=== PATIENT | female | born 1970 | race Caucasian/White ===

== ENCOUNTER 2017-11-17 10:05 | Day surgery (SDC) | payer OTHER ==
--- NOTE | 2017-11-17 07:17 | P.GSHP ---
History of Present Illness H&P Date: 11/17/17 CHIEF COMPLAINT: GERD HISTORY OF PRESENT ILLNESS: The patient is a 47-year-old female who presents reports gastroesophageal reflux disease. Upper endoscopy was offered for further evaluation and management. PAST MEDICAL HISTORY: Please see list. PAST SURGICAL HISTORY: Please see list. MEDICATIONS: Please see list. ALLERGIES: Please see list. SOCIAL HISTORY: No illicit drug use FAMILY HISTORY: No reports of Crohn disease or ulcerative colitis. REVIEW OF ORGAN SYSTEMS: CONSTITUTIONAL: No reports of fevers or chills. GI: Denies any blood in stools or constipation. PHYSICAL EXAM: VITAL SIGNS: Stable GENERAL: Well-developed and pleasant in no acute distress. HEENT: No scleral icterus. Extraocular movements grossly intact. Moist buccal mucosa. NECK: Supple without lymphadenopathy. CHEST: Unlabored respirations. Equal bilateral excursions. CARDIOVASCULAR: Regular rate and rhythm. Distal 2+ pulses. ABDOMEN: Soft, nondistended. MUSCULOSKELETAL: No clubbing, cyanosis, or edema. ASSESSMENT: 1. Gastroesophageal reflux disease PLAN: 1. Recommend proceeding with an upper endoscopy Past Medical History Past Medical History: Fibromyalgia, Hypertension Additional Past Medical History / Comment(s): seasonal allergies History of Any Multi-Drug Resistant Organisms: None Reported Past Surgical History: Tubal Ligation Past Psychological History: No Psychological Hx Reported Smoking Status: Current every day smoker Past Alcohol Use History: None Reported Past Drug Use History: None Reported Medications and Allergies Home Medications Medication Instructions Recorded Confirmed Type Cetirizine HCl [Zyrtec] 10 mg PO DAILY 07/25/15 08/13/15 History Cyclobenzaprine [Flexeril] 10 mg PO TID 07/25/15 08/13/15 History Hydrochlorothiazide 25 mg PO DAILY 07/25/15 08/13/15 History [Hydrochlorothiazide] Ibuprofen [Motrin] 800 mg PO Q8HR PRN 07/25/15 08/13/15 History Ondansetron HCl [Zofran] 4 mg PO Q6HR PRN #10 tab 07/25/15 08/13/15 Rx Pregabalin [Lyrica] 150 mg PO TID 07/25/15 08/13/15 History amLODIPine [Norvasc] 5 mg PO DAILY 07/25/15 08/13/15 History oxyCODONE HCL [oxyCODONE HCL] 10 mg PO Q6HR PRN 07/25/15 08/13/15 History Allergies Allergy/AdvReac Type Severity Reaction Status Date / Time shellfish derived [Shellfish] Allergy Anaphylaxis Verified 08/13/15 01:55
[2017-11-17] MEDS ORDERED: LIDOCAINE 1% 20 ML VIAL (10MG/ML) FOR IV START INTRADERMA PRN (11:25)
[2017-11-17] MEDS ORDERED: LACTATED RINGERS 1,000 ML IV SCH (11:25)
[2017-11-17 11:43] VITALS: TEMP 98.1
[2017-11-17] MEDS ORDERED: LACTATED RINGERS 1,000 ML IV ONE (11:44)
[2017-11-17] MEDS ORDERED: PROPOFOL 10 MG/ML 20 ML VIAL IV ONE (12:15)
--- NOTE | 2017-11-17 12:36 | P.PCN ---
Date of Procedure: 11/17/17 Description of Procedure: PREOPERATIVE DIAGNOSIS: Gastroesophageal reflux disease. Morbid obesity. POSTOPERATIVE DIAGNOSIS: Morbid obesity. Gastritis. Gastroesophageal reflux disease. OPERATION: Esophagogastroduodenoscopy with biopsies along antrum. SURGEON: Amanda Vazquez MD ANESTHESIA: MAC. INDICATIONS: The patient is a 47-year-old female who presents with a history of reflux disease. Benefits and risks of the procedure were described. Informed consent was obtained. DESCRIPTION: The patient was brought into the endoscopy suite and laid in the left lateral decubitus position. An Olympus gastroscope was passed along the posterior oropharynx down to the distal esophagus where the squamocolumnar junction was encountered at 40 cm from the incisors. The stomach was entered and no bile reflux was found. Additional findings are listed below. Biopsies with cold forceps were obtained of the antrum. The first through third portion of the duodenum was examined and unremarkable. Retroflexion of the scope confirmed Hill grade 2 lower esophageal valve. The squamocolumnar junction demostrated LA grade A erosive esophagitis. The stomach was desufflated. The patient tolerated the procedure well. FINDINGS: Squamocolumnar junction 40 cm from the incisors. Diaphragmatic hiatus at 40 cm. Hill grade 2 lower esophageal valve. LA grade A erosive esophagitis. No active duodenitis. Superficial acute gastritis of recent bleed along antrum RECOMMENDATIONS: Upper endoscopy as needed. Plan - Discharge Summary New Discharge Prescriptions: No Action amLODIPine [Norvasc] 5 mg PO DAILY Cetirizine HCl [Zyrtec] 10 mg PO DAILY Cyclobenzaprine [Flexeril] 10 mg PO TID oxyCODONE HCL [oxyCODONE HCL] 10 mg PO Q6HR PRN PRN Reason: Pain Pregabalin [Lyrica] 150 mg PO TID Ibuprofen [Motrin] 800 mg PO Q8HR PRN PRN Reason: pain Hydrochlorothiazide [Hydrochlorothiazide] 25 mg PO DAILY Ondansetron HCl [Zofran] 4 mg PO Q6HR PRN #10 tab PRN Reason: Nausea Discharge Medication List Cetirizine HCl [Zyrtec] 10 mg PO DAILY 07/25/15 [History] Cyclobenzaprine [Flexeril] 10 mg PO TID 07/25/15 [History] Hydrochlorothiazide [Hydrochlorothiazide] 25 mg PO DAILY 07/25/15 [History] Ibuprofen [Motrin] 800 mg PO Q8HR PRN 07/25/15 [History] Ondansetron HCl [Zofran] 4 mg PO Q6HR PRN #10 tab 07/25/15 [Rx] Pregabalin [Lyrica] 150 mg PO TID 07/25/15 [History] amLODIPine [Norvasc] 5 mg PO DAILY 07/25/15 [History] oxyCODONE HCL [oxyCODONE HCL] 10 mg PO Q6HR PRN 07/25/15 [History]
[2017-11-17 12:51] VITALS: RESP 16
[2017-11-17 12:59] VITALS: BP 136/87; PULSE 83
== END 2017-11-17 13:12 | disposition home or self-care (01) ==
LOC: ORWHC2ENDO 10:05
PROVIDERS: ATTEND Surgery Plastic and Reconstructive Surgery
DX: K29.00 Acute gastritis without bleeding (principal); K29.50 Unspecified chronic gastritis without bleeding; K21.9 Gastro-esophageal reflux disease without esophagitis; E66.01 Morbid (severe) obesity due to excess calories; K22.10 Ulcer of esophagus without bleeding; I10 Essential (primary) hypertension; M79.7 Fibromyalgia; F17.200 Nicotine dependence, unspecified, uncomplicated; Z91.013 Allergy to seafood; Z88.0 Allergy status to penicillin; Z79.899 Other long term (current) drug therapy; Z68.26 Body mass index [BMI] 26.0-26.9, adult
CPT/HCPCS: 81025; 88305; 43239; J2704

== ENCOUNTER 2018-02-27 23:44 | Observation (INO) | payer MEDICARE, OTHER ==
[2018-02-27] MEDS ORDERED: ASPIRIN 81 MG PO STA (23:56)
[2018-02-27] MEDS ORDERED: SODIUM CHLORIDE 0.9% 1,000 ML IV STA (23:56)
[2018-02-28] MEDS ORDERED: NITROGLYCERIN OINT 1 INCH/GM PACKET TOPICAL STA (00:02)
[2018-02-28 00:22] LABS: Basophils # (A) 0.1 k/uL (0-0.2); Basophils % (A) 1 %; Eosinophils # (A) 0.3 k/uL (0-0.7); Eosinophils % (A) 4 %; HCT 45.6 % (34.0-46.0); HGB 14.3 gm/dL (11.4-16.0); Lymphocytes # (A) 3.1 k/uL (1.0-4.8); Lymphocytes % (A) 34 %; MCH 28.4 pg (25.0-35.0); MCHC 31.5 g/dL (31.0-37.0); MCV 90.3 fL (80.0-100.0); Monocytes # (A) 0.5 k/uL (0-1.0); Monocytes % (A) 6 %; Neutrophils # (A) 4.9 k/uL (1.3-7.7); Neutrophils % (A) 54 %; Platelet Count 249 k/uL (150-450); RBC 5.05 m/uL (3.80-5.40); RDW 14.1 % (11.5-15.5); WBC 9.1 k/uL (3.8-10.6)
[2018-02-28 00:33] LABS: Albumin 4.3 g/dL (3.5-5.0); Calcium 9.4 mg/dL (8.4-10.2); Magnesium 1.8 mg/dL (1.6-2.3); Potassium 3.9 mmol/L (3.5-5.1); Total Bilirubin 0.4 mg/dL (0.2-1.3); Total Protein 7.3 g/dL (6.3-8.2)
[2018-02-28 00:42] LABS: Partial Thromboplastin Time 24.8 sec (22.0-30.0); Prothrombin Time 9.6 sec (9.0-12.0)
[2018-02-28 00:49] LABS: Creatine Kinase 78 U/L (30-135)
[2018-02-28 00:55] LABS: D-Dimer 0.8 mg/L FEU (<0.60)
--- NOTE | 2018-02-28 00:56 | XR ---
EXAMINATION TYPE: XR chest 2V DATE OF EXAM: 02/28/2018 COMPARISON: 07/25/2015 HISTORY: Chest pain TECHNIQUE: Frontal and lateral views of the chest are obtained. FINDINGS: Heart and mediastinum are normal. Lungs are clear. Diaphragm is normal. There are chest le ads. IMPRESSION: Normal chest. No change.
--- NOTE | 2018-02-28 00:56 | XR ---
EXAMINATION TYPE: XR ankle complete LT DATE OF EXAM: 02/28/2018 COMPARISON: NONE HISTORY: Ankle swelling TECHNIQUE: 3 views FINDINGS: I see no fracture nor dislocation. Ankle mortise is anatomic. IMPRESSION: Negative left ankle exam.
[2018-02-28 01:02] LABS: Creatine Kinase MB 1.4 ng/mL (0.0-2.4); Troponin I <0.012 ng/mL (0.000-0.034)
--- NOTE | 2018-02-28 01:47 | ED ---
General Adult HPI - General Chief complaint: Chest Pain Stated complaint: Chest pain, High BP Time Seen by Provider: 02/27/18 23:55 Source: patient, family Mode of arrival: ambulatory Limitations: no limitations - History of Present Illness Initial comments: Dyan is a 47-year-old female with past medical history of obesity and hypertension who presents to the emergency department today for evaluation of chest pain. Patient reports that for the past 2 days she's had mild chest pain but this evening she developed a sharp pain in her retrosternal radiating to her left shoulder left neck, patient reports that she checked her blood pressure home and noted that was very elevated. This made her very anxious prompted her to come to the hospital. Patient reports she has a history of hypertension, she reports she's been compliant with her home antihypertensives. She states that when her blood pressure gets elevated she occasionally has headaches, but she is not experiencing that today. She denies any previous cardiac history, but does report a positive family history as well as a history of DVTs and PEs in the family. She reports that the pain is been mild throughout the weekend but became suddenly severe this evening while at rest. She cannot identify any exacerbating or relieving factors to the pain. She's never experienced pain like this in the past. She denies any recent fevers chills nausea or vomiting. She reports that prior to this week and she was in her usual state of health. She does suffer from chronic pain secondary to fibromyalgia for which she is followed by pain management has a pain contract and takes by mouth pain medications. - Related Data Home Medications Medication Instructions Recorded Confirmed Cetirizine HCl [Zyrtec] 10 mg PO DAILY 07/25/15 02/27/18 Cyclobenzaprine [Flexeril] 10 mg PO TID 07/25/15 02/27/18 Hydrochlorothiazide 25 mg PO DAILY 07/25/15 02/27/18 Ibuprofen [Motrin] 800 mg PO Q8HR PRN 07/25/15 02/27/18 Pregabalin [Lyrica] 150 mg PO TID 07/25/15 02/27/18 amLODIPine [Norvasc] 5 mg PO DAILY 07/25/15 02/27/18 oxyCODONE HCL 10 mg PO Q6HR PRN 07/25/15 02/27/18 Previous Rx's Medication Instructions Recorded Ondansetron HCl [Zofran] 4 mg PO Q6HR PRN #10 tab 07/25/15 Omeprazole 20 mg PO DAILY #14 capsule. 11/17/17 Allergies Allergy/AdvReac Type Severity Reaction Status Date / Time shellfish derived [Shellfish] Allergy Anaphylaxis Verified 02/27/18 23:50 PCN Allergy Rash/Hives Uncoded 02/27/18 23:50 Review of Systems ROS Statement: Those systems with pertinent positive or pertinent negative responses have been documented in the HPI. ROS Other: All systems not noted in ROS Statement are negative. Past Medical History Past Medical History: Fibromyalgia, Hypertension Additional Past Medical History / Comment(s): seasonal allergies, pt states clotting disorder History of Any Multi-Drug Resistant Organisms: None Reported Past Surgical History: Tubal Ligation Past Psychological History: No Psychological Hx Reported Smoking Status: Current every day smoker Past Alcohol Use History: None Reported Past Drug Use History: None Reported General Exam - General Exam Comments Initial Comments: GENERAL: Morbidly obese female in moderate distress, is uncomfortable HENT: Normocephalic, Atraumatic. Neck is soft and supple. No significant lymphadenopathy is noted. Oropharynx is clear. Moist mucous membranes. Neck has full range of motion without eliciting any pain. EYES: The sclera were anicteric and conjunctiva were pink and moist. Extraocular movements were intact and pupils were equal round and reactive to light. Eyelids were unremarkable. PULMONARY: Unlabored respirations. Good breath sounds bilaterally. No audible rales rhonchi or wheezing was noted. CARDIOVASCULAR: There is a regular rate and rhythm without any murmurs gallops or rubs. Extremities are warm and well perfused, strong radial pulses bilaterally ABDOMEN: Obese, Soft and nontender with normal bowel sounds. SKIN: Skin is clear with no lesions or rashes and otherwise unremarkable. NEUROLOGIC: Patient is alert and oriented x3. Cranial nerves II through XII are grossly intact. Motor and sensory are also intact. Normal speech, volume and content. Symmetrical smile. MUSCULOSKELETAL: Normal extremities with adequate strength and full range of motion. No lower extremity swelling or edema. No calf tenderness. LYMPHATICS: No significant lymphadenopathy is noted PSYCHIATRIC: Normal psychiatric evaluation. Limitations: no limitations Limitations: no limitations Course Vital Signs 02/27/18 02/28/18 23:46 01:56 Temperature 99.3 F Pulse Rate 111 H 93 Respiratory 20 16 Rate Blood Pressure 158/94 133/81 O2 Sat by Pulse 96 97 Oximetry EKG Findings - EKG Comments: EKG Findings:: EKG obtained at 2359, rate is 101, rhythm is sinus, there is normal axis, normal intervals, RI 120, QRS 88, QTC 451, there is noted to be a Q -wave in lead [address] elevations or depressions no evidence of acute ischemia or infarction Medical Decision Making - Medical Decision Making The patient was seen and evaluated, history was obtained from the patient presented diaphoretic complaining of retrosternal chest pain with radiation to her neck and shoulder she was noted to be hypertensive As noted to be hypertensive, mildly tachycardic Risk factors include hypertension, obesity Labs and imaging were ordered EKG was reviewed, no acute ischemia was noted, nitro was ordered Labs significant only for an elevated d-dimer Chest x-ray with no acute findings CT pulmonary embolism study was ordered, patient tolerated this very well, there are no acute pulmonary embolism, no acute aortic pathology noted blood pressure improved with nitro paste a short reported improvement in her chest pressure with Nitropaste Reported was negative At this time considering the patient's presentation with retrosternal chest pain radiating the left shoulder and left neck, diaphoresis and history of hypertension and obesity do feel the patient warrants admission for evaluation by cardiology. This plan was discussed with the patient who is agreeable. Admission orders with a consult cardiology were placed - Lab Data Result diagrams: 02/28/18 00:07 02/28/18 00:07 Lab Results 02/28/18 02/28/18 02/28/18 Range/Units 00:07 00:07 00:07 WBC 9.1 (3.8-10.6) k/uL RBC 5.05 (3.80-5.40) m/uL Hgb 14.3 (11.4-16.0) gm/dL Hct 45.6 (34.0-46.0) % MCV 90.3 (80.0-100.0) fL MCH 28.4 (25.0-35.0) pg MCHC 31.5 (31.0-37.0) g/dL RDW 14.1 (11.5-15.5) % Plt Count 249 (150-450) k/uL Neutrophils % 54 % Lymphocytes % 34 % Monocytes % 6 % Eosinophils % 4 % Basophils % 1 % Neutrophils # 4.9 (1.3-7.7) k/uL Lymphocytes # 3.1 (1.0-4.8) k/uL Monocytes # 0.5 (0-1.0) k/uL Eosinophils # 0.3 (0-0.7) k/uL Basophils # 0.1 (0-0.2) k/uL PT (9.0-12.0) sec INR (<1.2) APTT (22.0-30.0) sec D-Dimer (<0.60) mg/L FEU Sodium 139 (137-145) mmol/L Potassium 3.9 (3.5-5.1) mmol/L Chloride 106 (98-107) mmol/L Carbon Dioxide 22 (22-30) mmol/L Anion Gap 11 mmol/L BUN 15 (7-17) mg/dL Creatinine 1.02 (0.52-1.04) mg/dL Est GFR (CKD-EPI)AfAm 77 (>60 ml/min/1.73 sqM) Est GFR (CKD-EPI)NonAf 67 (>60 ml/min/1.73 sqM) Glucose 105 H (74-99) mg/dL Calcium 9.4 (8.4-10.2) mg/dL Magnesium 1.8 (1.6-2.3) mg/dL Total Bilirubin 0.4 (0.2-1.3) mg/dL AST 45 H (14-36) U/L ALT 52 (9-52) U/L Alkaline Phosphatase 58 (38-126) U/L Total Creatine Kinase 78 (30-135) U/L CK-MB (CK-2) 1.4 (0.0-2.4) ng/mL CK-MB (CK-2) Rel Index 1.8 Troponin I <0.012 (0.000-0.034) ng/mL NT-Pro-B Natriuret Pep pg/mL Total Protein 7.3 (6.3-8.2) g/dL Albumin 4.3 (3.5-5.0) g/dL 02/28/18 02/28/18 Range/Units 00:07 00:07 WBC (3.8-10.6) k/uL RBC (3.80-5.40) m/uL Hgb (11.4-16.0) gm/dL Hct (34.0-46.0) % MCV (80.0-100.0) fL MCH (25.0-35.0) pg MCHC (31.0-37.0) g/dL RDW (11.5-15.5) % Plt Count (150-450) k/uL Neutrophils % % Lymphocytes % % Monocytes % % Eosinophils % % Basophils % % Neutrophils # (1.3-7.7) k/uL Lymphocytes # (1.0-4.8) k/uL Monocytes # (0-1.0) k/uL Eosinophils # (0-0.7) k/uL Basophils # (0-0.2) k/uL PT 9.6 (9.0-12.0) sec INR 1.0 (<1.2) APTT 24.8 (22.0-30.0) sec D-Dimer 0.80 H (<0.60) mg/L FEU Sodium (137-145) mmol/L Potassium (3.5-5.1) mmol/L Chloride (98-107) mmol/L Carbon Dioxide (22-30) mmol/L Anion Gap mmol/L BUN (7-17) mg/dL Creatinine (0.52-1.04) mg/dL Est GFR (CKD-EPI)AfAm (>60 ml/min/1.73 sqM) Est GFR (CKD-EPI)NonAf (>60 ml/min/1.73 sqM) Glucose (74-99) mg/dL Calcium (8.4-10.2) mg/dL Magnesium (1.6-2.3) mg/dL Total Bilirubin (0.2-1.3) mg/dL AST (14-36) U/L ALT (9-52) U/L Alkaline Phosphatase (38-126) U/L Total Creatine Kinase (30-135) U/L CK-MB (CK-2) (0.0-2.4) ng/mL CK-MB (CK-2) Rel Index Troponin I (0.000-0.034) ng/mL NT-Pro-B Natriuret Pep 42 pg/mL Total Protein (6.3-8.2) g/dL Albumin (3.5-5.0) g/dL Disposition Clinical Impression: Chest pain, Hypertensive urgency Disposition: ADMITTED IP TO THIS [facility] Condition: Stable Referrals: Camilo Foy DO [Primary Care Provider] - 1-2 days
--- NOTE | 2018-02-28 01:54 | CT ---
EXAMINATION TYPE: CT chest angio for PE DATE OF EXAM: 02/28/2018 COMPARISON: None HISTORY: R/O PE CT DLP: 789.70 mGycm Automated exposure control for dose reduction was used. CONTRAST: CT Chest for pulmonary embolism performed with with IV Contrast, patient injected with 70 mL of Isovu e 370. FINDINGS: There is minimal linear density in the lingula left upper lobe. There is no evidence of a pulmonary m ass. There is no pleural effusion. There is fatty infiltration of the liver. Heart size is normal. Th ere is no pericardial effusion. There is suboptimal contrast density in the pulmonary arteries. I see no filling defects. Thoracic ao rta shows no evidence of aneurysm or dissection. There is no evidence of a pulmonary mass. There is s purring in the thoracic spine. IMPRESSION: No evidence of pulmonary embolism. Fatty infiltration of the liver.
[2018-02-28] MEDS ORDERED: HEPARIN SODIUM,PORCINE 5,000 UNIT/ML 1 ML VIAL IV ONE (02:32)
[2018-02-28] MEDS ORDERED: HEPARIN SODIUM,PORCINE 5,000 UNIT/ML 1 ML VIAL IV PRN (02:32)
[2018-02-28] MEDS ORDERED: HEPARIN SOD,PORK IN 0.45% NACL 25,000 UNIT in 0.45% NACL 1 500ML.BAG IV SCH (02:45)
[2018-02-28 02:59] LABS: Basophils % (A) 0 %; Eosinophils # (A) 0.4 k/uL (0-0.7); Eosinophils % (A) 4 %; HCT 41.8 % (34.0-46.0); HGB 13.4 gm/dL (11.4-16.0); Lymphocytes # (A) 2.8 k/uL (1.0-4.8); Lymphocytes % (A) 35 %; MCH 28.6 pg (25.0-35.0); MCHC 32.1 g/dL (31.0-37.0); MCV 89.3 fL (80.0-100.0); Mean Platelet Volume 8.2; Monocytes # (A) 0.5 k/uL (0-1.0); Monocytes % (A) 6 %; Neutrophils # (A) 4.2 k/uL (1.3-7.7); Neutrophils % (A) 52 %; Platelet Count 219 k/uL (150-450); RBC 4.69 m/uL (3.80-5.40); RDW 13.8 % (11.5-15.5); WBC 8.1 k/uL (3.8-10.6)
[2018-02-28 03:03] LABS: Partial Thromboplastin Time 24.2 sec (22.0-30.0); Prothrombin Time 9.9 sec (9.0-12.0)
[2018-02-28 03:08] VITALS: RESP 18
[2018-02-28 03:15] VITALS: BMI 43.9
[2018-02-28] MEDS: PREGABALIN 75 MG CAP PO SCH ×2 (03:35→12:05)
[2018-02-28] MEDS ORDERED: NITROGLYCERIN OINT 1 INCH/GM PACKET TOPICAL SCH (06:00)
[2018-02-28 07:54] VITALS: TEMP 97.5
[2018-02-28] MEDS ORDERED: HEPARIN SODIUM,PORCINE 5,000 UNIT/ML 1 ML VIAL SQ SCH (08:00)
[2018-02-28 08:02] LABS: Creatine Kinase 58 U/L (30-135)
[2018-02-28 08:16] LABS: Creatine Kinase MB 1.1 ng/mL (0.0-2.4); Troponin I <0.012 ng/mL (0.000-0.034)
[2018-02-28] MEDS ORDERED: HYDROCHLOROTHIAZIDE 25 MG TAB PO SCH (09:00)
[2018-02-28] MEDS ORDERED: amLODIPine 5 MG TAB PO SCH (09:00)
[2018-02-28] MEDS ORDERED: PREGABALIN 75 MG CAP PO SCH (09:00)
[2018-02-28] MEDS ORDERED: DOBUTamine DRIP for NUC MED 500 MG in DEXTROSE/WATER 1 250ML.BAG IV ONE (10:07)
[2018-02-28] MEDS ORDERED: LOSARTAN 50 MG TAB PO SCH (10:15)
[2018-02-28 10:45] LABS: Cholesterol 170 mg/dL (<200); HDL Cholesterol 44 mg/dL (40-60); LDL Cholesterol,Calculated 80 mg/dL (0-99); Triglycerides 231 mg/dL (<150)
[2018-02-28] MEDS ORDERED: ATROPINE SULFATE 0.1 MG/ML 10ML SYRINGE ONE (11:23)
[2018-02-28 12:05] VITALS: BP 122/84; PULSE 109
--- NOTE | 2018-02-28 12:19 | P.CRDCN ---
History of Present Illness History of present illness: This is a pleasant 47-year-old female past medical history significant for hypertension, dyslipidemia and fibromyalgia. She is also a daily smoker. She denies history of coronary artery disease or diabetes mellitus. She has never seen a acid dumper for any reason. We've been asked to see her in consultation for symptoms of chest pain. She states her blood pressures have been running high for the last few days at home with diastolic up to 114. She states she has been working with her PCP to get her bp under better control lately and is checking pressures twice a day. Yesterday while sitting down she developed a stabbing pain in the mid-back that radiated through to her chest. The pain was intense and associated with shortness of breath and diaphoresis. She states she was drenched in sweat and had to change her clothes. The symptoms ultimately subsided on their own with no specific alleviating factors. EKG reveals sinus mechanism with no acute ST or T-wave abnormalities noted. Chest xray negative for an acute cardiopulmonary process. CTA chest negative for PE or aortic abnormalities. Laboratory data reviewed, hgb 13.4, plt 219, d-dimer 0.8, sodium 139, potassium 3.9, magnesium 1.8, creatinine 1.02, cardiac enzymes negative x3, NTproBNP 42, LDL 80, HDL 44, triglycerides 231, total cholesterol 170. Current cardiac medications include aspirin 325 mg daily, amlodipine 5 mg daily , losartan 100 mg daily and lasix 20 mg daily. She also takes lyrica, percocet, abilify, strattera, flexeril, cymbalta, fenofibrate, fluticasone, claritin, zantac, ellipta and chantix. Review of Systems At the time of my exam: CONSTITUTIONAL: Denies fever. Denies chills. EYES: Denies blurred vision. Denies vision changes. Denies eye pain. EARS, NOSE, MOUTH & THROAT: Denies headache. Denies sore throat. Denies ear pain. CARDIOVASCULAR: Denies chest pain. Denies shortness of breath. Denies orthopnea. Denies PND. Denies palpitations. RESPIRATORY: Denies cough. GASTROINTESTINAL: Denies abdominal pain. Denies diarrhea. Denies constipation. Denies nausea. Denies vomiting. MUSCULOSKELETAL: Denies myalgias. INTEGUMENTARY: Denies pruitis. Denies rash. NEUROLOGIC: Denies numbness. Denies tingling. Denies weakness. PSYCHIATRIC: Denies anxiety. Denies depression. ENDOCRINE: Denies fatigue. Denies weight change. Denies polydipsia. Denies polyurina. GENITOURINARY: Denies burning, hematuria or urgency with micturation. HEMATOLOGIC: Denies history of anemia. Denies bleeding. Past Medical History Past Medical History: Cancer, Fibromyalgia, Hyperlipidemia, Hypertension, Liver Disease Additional Past Medical History / Comment(s): seasonal allergies, pt states clotting disorder, cervical ca - HPV, slight elevated LFT, chronic pain, chronic fatigue, BLE edema History of Any Multi-Drug Resistant Organisms: None Reported Past Surgical History: Tubal Ligation Additional Past Surgical History / Comment(s): bunionectomy left Past Anesthesia/Blood Transfusion Reactions: No Reported Reaction Past Psychological History: Depression Smoking Status: Current every day smoker Past Alcohol Use History: None Reported Past Drug Use History: None Reported - Past Family History Son(s) Family Medical History: Deep Vein Thrombosis (DVT) Additional Family Medical History / Comment(s): elevated clotting disorder Daughter(s) Additional Family Medical History / Comment(s): elevated clotting disorder Mother Family Medical History: Hypertension Additional Family Medical History / Comment(s): at 64 - "arterial htn" Medications and Allergies Home Medications Medication Instructions Recorded Confirmed Type Cyclobenzaprine [Flexeril] 10 mg PO TID 07/25/15 02/28/18 History Pregabalin [Lyrica] 150 mg PO TID 07/25/15 02/28/18 History amLODIPine [Norvasc] 5 mg PO DAILY 07/25/15 02/28/18 History ARIPiprazole [Abilify] 5 mg PO DAILY 02/28/18 02/28/18 History Acetaminophen [Tylenol] 325 mg PO DAILY 02/28/18 02/28/18 History Aspirin 325 mg PO DAILY 02/28/18 02/28/18 History Atomoxetine HCl [Strattera] 80 mg PO QAM 02/28/18 02/28/18 History DULoxetine HCL [Cymbalta] 60 mg PO BID 02/28/18 02/28/18 History Fenofibrate 160 mg PO DAILY 02/28/18 02/28/18 History Fluticasone/Salmeterol 2 puff INHALATION RT-BID 02/28/18 02/28/18 History [Fluticasone-Salmeterol 232-14] Furosemide [Lasix] 20 mg PO DAILY 02/28/18 02/28/18 History Loratadine [Claritin] 10 mg PO DAILY 02/28/18 02/28/18 History Losartan Potassium [Cozaar] 100 mg PO DAILY 02/28/18 02/28/18 History Ranitidine HCl [Zantac] 150 mg PO BID 02/28/18 02/28/18 History Umeclidinium [place] [Incruse 1 puff INHALATION RT-DAILY 02/28/18 02/28/18 History Ellipta] Varenicline Tartrate [Chantix 1 tab PO BID 02/28/18 02/28/18 History Continuing Pack] oxyCODONE HCL/ACETAMINOPHEN 1 tab PO Q6HR PRN 02/28/18 02/28/18 History [Percocet 10-325 mg] Allergies Allergy/AdvReac Type Severity Reaction Status Date / Time shellfish derived [Shellfish] Allergy Anaphylaxis Verified 02/28/18 08:54 latex AdvReac Rash/Hives Verified 02/28/18 08:54 PCN Allergy Rash/Hives Uncoded 02/27/18 23:50 Physical Exam Vitals: Vital Signs Temp Pulse Pulse Resp BP BP Pulse Ox 02/28/18 07:25 97.5 F L 89 18 124/74 95 02/28/18 03:57 18 02/28/18 03:07 98.1 F 92 18 137/77 96 02/28/18 03:00 98.1 F 92 16 137/77 96 02/28/18 01:56 93 16 133/81 97 02/27/18 23:46 99.3 F 111 H 20 158/94 96 Intake and Output 02/27/18 02/28/18 02/28/18 22:59 06:59 14:59 Other: Voiding Method Toilet # Voids 2 Weight 135.5 kg Blood pressure 122/84 heart rate 109 afebrile maintaining oxygen saturation on room air GENERAL: This is a 47-year-old occasion female in no apparent distress at the time of my examination. Morbidly obese. HEENT: Head is atraumatic, normocephalic. Pupils are equal, round. Sclerae anicteric. Conjunctivae are clear. Mucous membranes of the mouth are moist. Neck is supple. There is no jugular venous distention. No carotid bruit is heard. LUNGS: Course rhonchi. No rales or wheezes. No chest wall tenderness is noted on palpation or with deep breathing. HEART: Regular rate and rhythm without murmurs, rubs or gallops. S1 and S2 heard. ABDOMEN: Soft, non-tender. Bowel sounds are heard. No organomegaly noted. EXTREMITIES: No evidence of peripheral edema and no calf tenderness noted. VASCULAR: Radial and dorsalis pedis pulses palpated, no evidence of clubbing. NEUROLOGIC: Patient is awake, alert and oriented x3. Results 02/28/18 02:40 02/28/18 00:07 Cardiac Enzymes 02/28/18 02/28/18 02/28/18 Range/Units 00:07 00:07 07:00 AST 45 H (14-36) U/L CK-MB (CK-2) 1.4 1.1 (0.0-2.4) ng/mL Troponin I <0.012 <0.012 (0.000-0.034) ng/mL Coagulation 02/28/18 02/28/18 Range/Units 00:07 02:40 PT 9.6 9.9 (9.0-12.0) sec APTT 24.8 24.2 (22.0-30.0) sec CBC 02/28/18 02/28/18 Range/Units 00:07 02:40 WBC 9.1 8.1 (3.8-10.6) k/uL RBC 5.05 4.69 (3.80-5.40) m/uL Hgb 14.3 13.4 (11.4-16.0) gm/dL Hct 45.6 41.8 (34.0-46.0) % Plt Count 249 219 (150-450) k/uL Comprehensive Metabolic Panel 02/28/18 Range/Units 00:07 Sodium 139 (137-145) mmol/L Potassium 3.9 (3.5-5.1) mmol/L Chloride 106 (98-107) mmol/L Carbon Dioxide 22 (22-30) mmol/L BUN 15 (7-17) mg/dL Creatinine 1.02 (0.52-1.04) mg/dL Glucose 105 H (74-99) mg/dL Calcium 9.4 (8.4-10.2) mg/dL AST 45 H (14-36) U/L ALT 52 (9-52) U/L Alkaline Phosphatase 58 (38-126) U/L Total Protein 7.3 (6.3-8.2) g/dL Albumin 4.3 (3.5-5.0) g/dL Current Medications Generic Name Dose Route Start Last Admin Trade Name Freq PRN Reason Stop Dose Admin Amlodipine Besylate 5 mg 02/28/18 09:00 Norvasc PO DAILY [facility] Aspirin 325 mg 03/01/18 09:00 Aspirin PO DAILY [facility] Heparin Sodium (Porcine) 0 unit 02/28/18 02:32 Heparin IV PER PROTOCOL PRN Low PTT Protocol Hydrochlorothiazide 25 mg 02/28/18 09:00 Hydrodiuril PO DAILY [facility] Heparin Sodium/Sodium Chloride 500 mls @ 20 mls/hr 02/28/18 02:45 02/28/18 03 :37 25,000 unit/ Sodium Chloride IV 7.4 units/kg/hr .Q24H [facility] 20 mls/hr Administration Protocol 7.4 UNITS/KG/HR Nitroglycerin 1 inch 02/28/18 06:00 02/28/18 06:09 Nitro-Bid Oint TOPICAL Not Given Q6HR [facility] Oxycodone HCl 10 mg 02/28/18 02:13 02/28/18 03:35 Oxyir PO 10 mg Q6HR PRN Administration Pain Pregabalin 150 mg 02/28/18 03:18 02/28/18 03:35 Lyrica PO 150 mg TID [facility] Administration Intake and Output 02/27/18 02/28/18 02/28/18 22:59 06:59 14:59 Other: Voiding Method Toilet # Voids 2 Weight 135.5 kg 02/28/18 02:40 02/28/18 00:07 Assessment and Plan Assessment: ASSESSMENT Chest pain, atypical. An acute coronary event has been ruled out with no EKG evidence of ischemia and negative cardiac enzymes Hypertension Dyslipidemia Fibromyalgia Chronic nicotine dependence Morbid Obesity PLAN An acute coronary event has been ruled out. Obtain 2D echocardiogram and doppler study to assess cardiac structure and function. Perform dobutamine stress echocardiogram to assess for stress induced ischemic changes. If stress test is normal she is stable from a cardiac perspective. Thank you kindly for this consultation. Nurse Practitioner note has been reviewed, I agree with a documented findings and plan of care. Patient was seen and examined.
[2018-02-28] MEDS ORDERED: CYCLOBENZAPRINE 10 MG TAB PO SCH (13:00)
--- NOTE | 2018-02-28 13:26 | P.HPIM ---
History of Present Illness 47-year-old female came in with compensative neck pain radiating the left side of the chest constant pain nonpleuritic not associated with food. Patient had a minimally d-dimer elevation because of which patient underwent CTA of the chest which did not show any pneumonic process of coronary embolism. Patient denied any associated shortness of breath lightheadedness patient pain is moderate. Patient does have degenerative neck disease and back disease. Patient was admitted to rule out a concurrent syndromes troponins are negative EKG no significant abnormality cardiology evaluated the patient patient is undergoing stress test and if that's negative patient will be discharged and patient pain is musculoskeletal coming from the degenerative neck disease patient does have history of fibromyalgia as well. Review of Systems REVIEW OF SYSTEMS: CONSTITUTIONAL: No fever, no malaise, no fatigue. HEENT: No recent visual problems or hearing problems. Denied any sore throat. CARDIOVASCULAR: No orthopnea, PND, no palpitations, no syncope. PULMONARY: No shortness of breath, no cough, no hemoptysis. GASTROINTESTINAL: No diarrhea, no nausea, no vomiting, no abdominal pain. Normoactive bowel sounds. NEUROLOGICAL: No headaches, no weakness, no numbness. HEMATOLOGICAL: Denies any bleeding or petechiae. GENITOURINARY: Denies any burning micturition, frequency, or urgency. MUSCULOSKELETAL/RHEUMATOLOGICAL: Denies any joint pain, swelling, or any muscle pain. ENDOCRINE: Denies any polyuria or polydipsia. The rest of the 14-point review of systems is negative. Past Medical History Past Medical History: Cancer, Fibromyalgia, Hyperlipidemia, Hypertension, Liver Disease Additional Past Medical History / Comment(s): seasonal allergies, pt states clotting disorder, cervical ca - HPV, slight elevated LFT, chronic pain, chronic fatigue, BLE edema History of Any Multi-Drug Resistant Organisms: None Reported Past Surgical History: Tubal Ligation Additional Past Surgical History / Comment(s): bunionectomy left Past Anesthesia/Blood Transfusion Reactions: No Reported Reaction Past Psychological History: Depression Smoking Status: Current every day smoker Past Alcohol Use History: None Reported Past Drug Use History: None Reported - Past Family History Son(s) Family Medical History: Deep Vein Thrombosis (DVT) Additional Family Medical History / Comment(s): elevated clotting disorder Daughter(s) Additional Family Medical History / Comment(s): elevated clotting disorder Mother Family Medical History: Hypertension Additional Family Medical History / Comment(s): at 64 - "arterial htn" Medications and Allergies Home Medications Medication Instructions Recorded Confirmed Type Cyclobenzaprine [Flexeril] 10 mg PO TID 07/25/15 02/28/18 History Pregabalin [Lyrica] 150 mg PO TID 07/25/15 02/28/18 History amLODIPine [Norvasc] 5 mg PO DAILY 07/25/15 02/28/18 History ARIPiprazole [Abilify] 5 mg PO DAILY 02/28/18 02/28/18 History Acetaminophen [Tylenol] 325 mg PO DAILY 02/28/18 02/28/18 History Aspirin 325 mg PO DAILY 02/28/18 02/28/18 History Atomoxetine HCl [Strattera] 80 mg PO QAM 02/28/18 02/28/18 History DULoxetine HCL [Cymbalta] 60 mg PO BID 02/28/18 02/28/18 History Fenofibrate 160 mg PO DAILY 02/28/18 02/28/18 History Fluticasone/Salmeterol 2 puff INHALATION RT-BID 02/28/18 02/28/18 History [Fluticasone-Salmeterol 232-14] Furosemide [Lasix] 20 mg PO DAILY 02/28/18 02/28/18 History Loratadine [Claritin] 10 mg PO DAILY 02/28/18 02/28/18 History Losartan Potassium [Cozaar] 100 mg PO DAILY 02/28/18 02/28/18 History Ranitidine HCl [Zantac] 150 mg PO BID 02/28/18 02/28/18 History Umeclidinium [place] [Incruse 1 puff INHALATION RT-DAILY 02/28/18 02/28/18 History Ellipta] Varenicline Tartrate [Chantix 1 tab PO BID 02/28/18 02/28/18 History Continuing Pack] oxyCODONE HCL/ACETAMINOPHEN 1 tab PO Q6HR PRN 02/28/18 02/28/18 History [Percocet 10-325 mg] Allergies Allergy/AdvReac Type Severity Reaction Status Date / Time shellfish derived [Shellfish] Allergy Anaphylaxis Verified 02/28/18 08:54 latex AdvReac Rash/Hives Verified 02/28/18 08:54 PCN Allergy Rash/Hives Uncoded 02/27/18 23:50 Physical Exam Vitals: Vital Signs Temp Pulse Pulse Resp BP BP Pulse Ox 02/28/18 12:00 97.5 F L 109 H 18 122/84 94 L 02/28/18 08:00 89 18 02/28/18 07:25 97.5 F L 89 18 124/74 95 02/28/18 03:57 18 02/28/18 03:07 98.1 F 92 18 137/77 96 02/28/18 03:00 98.1 F 92 16 137/77 96 02/28/18 01:56 93 16 133/81 97 02/27/18 23:46 99.3 F 111 H 20 158/94 96 Intake and Output 02/27/18 02/28/18 02/28/18 22:59 06:59 14:59 Intake Total 222 Balance 222 Intake: Oral 222 Other: Voiding Method Toilet Toilet # Voids 2 Weight 135.5 kg 135.171 kg PHYSICAL EXAMINATION: GENERAL: The patient is alert and oriented x3, not in any acute distress. Obese HEENT: Pupils are round and equally reacting to light. EOMI. No scleral icterus. No conjunctival pallor. Normocephalic, atraumatic. No pharyngeal erythema. No thyromegaly. CARDIOVASCULAR: S1 and S2 present. No murmurs, rubs, or gallops. PULMONARY: Chest is clear to auscultation, no wheezing or crackles. ABDOMEN: Soft, nontender, nondistended, normoactive bowel sounds. No palpable organomegaly. MUSCULOSKELETAL: No joint swelling or deformity. EXTREMITIES: No cyanosis, clubbing, or pedal edema. NEUROLOGICAL: Gross neurological examination did not reveal any focal deficits. SKIN: No rashes. Results CBC & Chem 7: 02/28/18 02:40 02/28/18 00:07 Labs: Abnormal Lab Results - Last 24 Hours (Table) 02/28/18 02/28/18 02/28/18 Range/Units 00:07 00:07 07:00 D-Dimer 0.80 H (<0.60) mg/L FEU Glucose 105 H (74-99) mg/dL AST 45 H (14-36) U/L Triglycerides 231 H (<150) mg/dL Thrombosis Risk Factor Assmnt - Choose All That Apply Each Factor Represents 1 point: Age 41-60 years, Obesity (BMI >25) Each Risk Factor Represents 3 Points: Family history of DVT/PE Thrombosis Risk Factor Assessment Total Risk Factor Score: 5 Thrombosis Risk Factor Assessment Level: High Risk Assessment and Plan Plan: Chest pain: Musculoskeletal underwent stress test if that's negative patient will be discharged -Morbid obesity: Patient appears to have sleep apnea will benefit from outpatient sleep study. Dietary counseling was provided patient is scheduled to get gastric bypass surgery -Fibromyalgia -Hypertension -Hyperlipidemia -Nicotine use: Counseling was provided Extrasystoles negative patient will be discharged today to follow up with the PCP and patient does have degenerative neck disease will benefit from outpatient physical therapy.
--- NOTE | 2018-02-28 13:26 | P.DS ---
Providers Date of admission: 02/28/18 02:13 Attending physician: Grant Tse MD Consults: 02/28/18 02:10 Consult Physician Urgent Consulting Provider: [facility] Consult Reason/Comments: chest pain, HTN Do you want consulting provider notified?: Yes, Notify in am Primary care physician: [facility] Course: As mentioned in HPI Patient Condition at Discharge: Stable Plan - Discharge Summary New Discharge Prescriptions: No Action amLODIPine [Norvasc] 5 mg PO DAILY Cyclobenzaprine [Flexeril] 10 mg PO TID Pregabalin [Lyrica] 150 mg PO TID oxyCODONE HCL/ACETAMINOPHEN [Percocet 10-325 mg] 1 tab PO Q6HR PRN PRN Reason: Pain Fenofibrate 160 mg PO DAILY ARIPiprazole [Abilify] 5 mg PO DAILY Acetaminophen [Tylenol] 325 mg PO DAILY Aspirin 325 mg PO DAILY Atomoxetine HCl [Strattera] 80 mg PO QAM DULoxetine HCL [Cymbalta] 60 mg PO BID Fluticasone/Salmeterol [Fluticasone-Salmeterol 232-14] 2 puff INHALATION RT- BID Furosemide [Lasix] 20 mg PO DAILY Loratadine [Claritin] 10 mg PO DAILY Losartan Potassium [Cozaar] 100 mg PO DAILY Ranitidine HCl [Zantac] 150 mg PO BID Umeclidinium [place] [Incruse Ellipta] 1 puff INHALATION RT-DAILY Varenicline Tartrate [Chantix Continuing Pack] 1 tab PO BID Discharge Medication List Cyclobenzaprine [Flexeril] 10 mg PO TID 07/25/15 [History] Pregabalin [Lyrica] 150 mg PO TID 07/25/15 [History] amLODIPine [Norvasc] 5 mg PO DAILY 07/25/15 [History] ARIPiprazole [Abilify] 5 mg PO DAILY 02/28/18 [History] Acetaminophen [Tylenol] 325 mg PO DAILY 02/28/18 [History] Aspirin 325 mg PO DAILY 02/28/18 [History] Atomoxetine HCl [Strattera] 80 mg PO QAM 02/28/18 [History] DULoxetine HCL [Cymbalta] 60 mg PO BID 02/28/18 [History] Fenofibrate 160 mg PO DAILY 02/28/18 [History] Fluticasone/Salmeterol [Fluticasone-Salmeterol 232-14] 2 puff INHALATION RT-BID 02/28/18 [History] Furosemide [Lasix] 20 mg PO DAILY 02/28/18 [History] Loratadine [Claritin] 10 mg PO DAILY 02/28/18 [History] Losartan Potassium [Cozaar] 100 mg PO DAILY 02/28/18 [History] Ranitidine HCl [Zantac] 150 mg PO BID 02/28/18 [History] Umeclidinium [place] [Incruse Ellipta] 1 puff INHALATION RT-DAILY 02/28/18 [ History] Varenicline Tartrate [Chantix Continuing Pack] 1 tab PO BID 02/28/18 [History] oxyCODONE HCL/ACETAMINOPHEN [Percocet 10-325 mg] 1 tab PO Q6HR PRN 02/28/18 [ History] Follow up Appointment(s)/Referral(s): Camilo Foy DO [Primary Care Provider] - 3 Days Discharge Disposition: HOME SELF-CARE
--- NOTE | 2018-02-28 14:24 | ECHOS ---
STRESS ECHOCARDIOGRAM INDICATIONS: Chest pain. BASELINE HEART RATE: 84 BASELINE BLOOD PRESSURE: 119/65 MAXIMUM HEART RATE: 139 MAXIMUM BLOOD PRESSURE: 130/62 85% MPHR: 148 100% MPHR: 174 MAXIMUM STAGE REACHED: 5 TOTAL EXERCISE TIME: 14:00 CLINICAL INFORMATION: Patient was given dobutamine infusion according to the standard protocol. Peak heart rate of 139 was achieved. Maximum blood pressure of 130/62 mmHg was noted. Resting EKG shows normal sinus rhythm with normal [place] interval and QRS duration and normal ST-T waves. No ST-segment depression suggestive of ischemia is noted. The baseline echocardiographic images reveals normal left ventricular chamber size with normal left ventricular systolic function. At the peak dose of dobutamine infusion, normal increase in the wall thickness and contractility is noted final impression this dobutamine stress echocardiographic study is negative for stress-induced ischemia. EKG portion of the stress is not suggestive of ischemia. Patient did not complain of any chest pain during the test. thank you. CLIVE / TU: [id number] /
[2018-03-01] MEDS ORDERED: ASPIRIN 81 MG PO SCH (09:00)
[2018-03-01] MEDS ORDERED: ASPIRIN 325 MG TAB PO SCH (09:00)
== END 2018-02-28 15:17 | disposition home or self-care (01) ==
LOC: EC 23:44 → 3OBS 02-28 02:13
PROVIDERS: ADMIT Internal Medicine; ATTEND Internal Medicine
DX: R07.89 Other chest pain (principal); R07.2 Precordial pain; R06.02 Shortness of breath; R00.0 Tachycardia, unspecified; R61 Generalized hyperhidrosis; I16.0 Hypertensive urgency; M54.2 Cervicalgia; R79.89 Other specified abnormal findings of blood chemistry; M79.7 Fibromyalgia; J30.2 Other seasonal allergic rhinitis; D68.9 Coagulation defect, unspecified; G89.29 Other chronic pain; E78.5 Hyperlipidemia, unspecified; I10 Essential (primary) hypertension; R53.82 Chronic fatigue, unspecified; R60.0 Localized edema; F32.9 Major depressive disorder, single episode, unspecified; F17.200 Nicotine dependence, unspecified, uncomplicated; Z83.2 Family history of diseases of the blood and blood-forming organs and certain disorders involving the immune mechanism; Z85.41 Personal history of malignant neoplasm of cervix uteri; Z82.49 Family history of ischemic heart disease and other diseases of the circulatory system; Z79.899 Other long term (current) drug therapy; Z79.82 Long term (current) use of aspirin; Z79.51 Long term (current) use of inhaled steroids; Z91.040 Latex allergy status; Z88.0 Allergy status to penicillin; Z91.013 Allergy to seafood; Z68.41 Body mass index [BMI] 40.0-44.9, adult; E66.01 Morbid (severe) obesity due to excess calories
CPT/HCPCS: 96361 ×2; 99285 ×2; 93005 ×2; 96365; 96366; 96376; 36415; 85379; 83880; 80061; 80053; 82550; 82553; 83735; 84484; 85025; 85610; 85730; 73610; 71046; 71275; G0378; C8929; C8930; J1250; J1644 ×2; J0461; Q9950; Q9967; 93306; 93351

== ENCOUNTER → 2018-08-29 | Outpatient (CLI) | payer MEDICARE, OTHER ==
[2018-08-29 16:29] VITALS: BP 139/93; PULSE 112; RESP 16; TEMP 97.9; BMI 43.2
--- NOTE | 2018-08-29 16:35 | P.HPBAR ---
Bariatric H&P - History & Physicial H&P Date: 08/29/18 History & Physicial: Visit/CC: Initial Visit Patient initial contact: Initial weight: 131.088 kg Initial weight in pounds: 289.00 Height: 5 ft 8.5 in Initial BMI: 43.2 Last weight: Current weight: 131.088 kg Current weight in pounds: 289.00 Current BMI: 43.2 [place] body weight (based on NIH guidelines): 64.637 kg Excess body weight loss: 0.0% The patient is a 48 year-old F who presents for Bariatric Assessment. Patient presents today for presurgical sleeve gastrectomy consultation. She's had issues with GERD. She is also morbidly obese with a BMI of 43. He seems have a good understanding of sleeve gastrectomy. Went over the risks and benefits of procedure including conversion to the open procedure and injury to the stomach liver or spleen. We also discussed the risk of gastric staple line disruption, bleeding or scarring. Past Medical History Past Medical History: Cancer, Fibromyalgia, Hyperlipidemia, Hypertension, Liver Disease Additional Past Medical History / Comment(s): seasonal allergies, pt states clotting disorder, cervical ca - HPV, slight elevated LFT, chronic pain, chronic fatigue, BLE edema History of Any Multi-Drug Resistant Organisms: None Reported Past Surgical History: Tubal Ligation Additional Past Surgical History / Comment(s): bunionectomy left Past Anesthesia/Blood Transfusion Reactions: No Reported Reaction Smoking Status: Current every day smoker - Past Family History Son(s) Family Medical History: Deep Vein Thrombosis (DVT) Additional Family Medical History / Comment(s): elevated clotting disorder Daughter(s) Additional Family Medical History / Comment(s): elevated clotting disorder Mother Family Medical History: Hypertension Additional Family Medical History / Comment(s): at 64 - "arterial htn" Surgical - Exam Vital Signs Temp Pulse Resp BP 97.9 F 112 H 16 139/93 08/29/18 16:27 08/29/18 16:27 08/29/18 16:27 08/29/18 16:27 - General well developed, well nourished, no distress - Eyes PERRL - ENT normal pinna - Neck no masses - Respiratory normal expansion - Cardiovascular Rhythm: regular - Abdomen Abdomen: soft, non tender Bariatric Assessment & Plan Plan: Morbid obesity, BMI 43. Patient will be scheduled for sleeve gastrectomy when she meets insurance authorization requirements. He has already undergone EGD several months ago. Bariatric Checklist Checklist: Plan: Checklist: EGD: 1. Hiatal hernia: 2. H. Pylori: HgbA1c: Vitamin D: Smoking: Current every day smoker Primary care physician referral: Dr. Foy Psychiatry clearance: Cardiology clearance: Sleep study: Diet journal: VTE risk score: VTE risk level: Rehab needs at discharge:
[2018-08-29 17:41] LABS: HCT 48.5 % (34.0-46.0); HGB 14.8 gm/dL (11.4-16.0); Hypochromasia Slight; MCH 28.2 pg (25.0-35.0); MCHC 30.6 g/dL (31.0-37.0); MCV 91.9 fL (80.0-100.0); Mean Platelet Volume 7.6; Platelet Count 248 k/uL (150-450); RBC 5.27 m/uL (3.80-5.40); RDW 14.6 % (11.5-15.5); WBC 9.6 k/uL (3.8-10.6)
[2018-08-30 00:55] LABS: Hemoglobin A1C 5.5 % (4.0-6.0)
[2018-08-30 01:42] LABS: Albumin 4.7 g/dL (3.80-4.90); Albumin/Globulin Ratio 1.88 (1.60-3.17); Anion Gap 7.1 mmol/L (4.00-12.00); Calcium 9.6 mg/dL (8.7-10.3); Carbon Dioxide 25.9 mmol/L (21.6-31.8); Globulin 2.5 g/dL (1.6-3.3); Potassium 4.7 mmol/L (3.5-5.5); Total Bilirubin 0.2 mg/dL (0.3-1.2); Total Protein 7.2 g/dL (6.2-8.2)
[2018-08-30 02:41] LABS: Vitamin D 25 Hydroxy 10.5 ng/mL (30.0-100.0)
== END ==
LOC: BARWHC3 15:39
PROVIDERS: ATTEND Surgery
DX: E66.01 Morbid (severe) obesity due to excess calories (principal); E55.9 Vitamin D deficiency, unspecified; F17.200 Nicotine dependence, unspecified, uncomplicated; Z68.41 Body mass index [BMI] 40.0-44.9, adult
CPT/HCPCS: 80053; 82607; 85027; 82306; 83036; 93005; 36415; G0463; 99201; 99211

== ENCOUNTER → 2018-10-10 | Outpatient (CLI) | payer MEDICARE, OTHER ==
[2018-10-11 08:47] VITALS: BP 123/89; PULSE 94; TEMP 98.1; BMI 43.0
--- NOTE | 2018-10-11 09:49 | P.HPBAR ---
Bariatric H&P - History & Physicial H&P Date: 10/10/18 History & Physicial: Visit/CC: presurgical visit Patient initial contact: Initial weight: 131.088 kg Initial weight in pounds: 289.00 Height: 5 ft 8.5 in Initial BMI: 43.2 Last weight: Current weight: 130.181 kg Current weight in pounds: 287.00 Current BMI: 43.0 [place] body weight (based on NIH guidelines): 64.637 kg Excess body weight loss: 1.3% The patient is a 48 year-old F who presents for Bariatric Assessment. Patient presents today for presurgical consultation. She is requesting sleeve gastrectomy. Her current BMI is 43. Past Medical History Past Medical History: Cancer, Fibromyalgia, Hyperlipidemia, Hypertension, Liver Disease Additional Past Medical History / Comment(s): seasonal allergies, pt states clotting disorder, cervical ca - HPV, slight elevated LFT, chronic pain, chronic fatigue, BLE edema History of Any Multi-Drug Resistant Organisms: None Reported Past Surgical History: Tubal Ligation Additional Past Surgical History / Comment(s): bunionectomy left Past Anesthesia/Blood Transfusion Reactions: No Reported Reaction Past Psychological History: Depression Smoking Status: Current every day smoker Past Alcohol Use History: None Reported Past Drug Use History: None Reported - Past Family History Son(s) Family Medical History: Deep Vein Thrombosis (DVT) Additional Family Medical History / Comment(s): elevated clotting disorder Daughter(s) Additional Family Medical History / Comment(s): elevated clotting disorder Mother Family Medical History: Hypertension Additional Family Medical History / Comment(s): at 64 - "arterial htn" Surgical - Exam Vital Signs Temp Pulse BP 98.1 F 94 123/89 10/10/18 15:10 10/10/18 15:10 10/10/18 15:10 - General well developed, well nourished, no distress - Eyes PERRL - ENT normal pinna - Neck no masses - Abdomen Abdomen: soft, non tender Bariatric Assessment & Plan Plan: Morbid obesity with BMI 43. Patient has multiple comorbidities related to morbid obesity. We went over the risks and benefits of sleeve gastrectomy. We discussed the possibilities of yesterday staple line disruption, bleeding or scarring. Patient will be scheduled for sleeve gastrectomy once her au thorization is complete. Bariatric Checklist Checklist: Plan: Checklist: EGD: 1. Hiatal hernia: 2. H. Pylori: HgbA1c: Vitamin D: Smoking: Current every day smoker Primary care physician referral: Dr. Foy Psychiatry clearance: Cardiology clearance: Sleep study: Diet journal: VTE risk score: VTE risk level: Rehab needs at discharge:
== END | disposition home or self-care (01) ==
LOC: BARWHC3 14:29
PROVIDERS: ATTEND Surgery
DX: E66.01 Morbid (severe) obesity due to excess calories (principal); F17.200 Nicotine dependence, unspecified, uncomplicated; I10 Essential (primary) hypertension; J30.2 Other seasonal allergic rhinitis; Z68.41 Body mass index [BMI] 40.0-44.9, adult; Z85.41 Personal history of malignant neoplasm of cervix uteri
CPT/HCPCS: 99211

== ENCOUNTER → 2018-10-13 | Outpatient (CLI) | payer MEDICARE, OTHER ==
--- NOTE | 2018-10-14 00:19 | CONS ---
CONSULTATION DATE OF SERVICE: 10/13/2018 48-year-old lady who has been evaluated in the sleep center for possible obstructive sleep apnea-hypopnea syndrome. HISTORY OF PRESENT ILLNESS SLEEP WAKE EVALUATION: SLEEP SCHEDULE: Her usual sleep schedule from 12 midnight until about 6:0 in the morning. FALLING ASLEEP: She does have problem with falling asleep, although no TV in bedroom. DURING SLEEP: She uses sleeps on the back position with loud snoring and she wakes up from sleep multiple times with up to 3 episodes of nocturia. Has episodes of gasping for air, sleep talking, sweating, grinding teeth, witnessed episodes of stopped breathing during the sleep. Stop breathing during the sleep was at the hospital. DURING THE DAY/SLEEP-WAKE EVALUATION: In the morning, patient wakes up tired, has difficulties to pay attention, falling asleep during the day, worries about sleep, has episodes of irritability, depression and anxiety. Ramsay Sleepiness Scale significantly increased to 17. PAST MEDICAL HISTORY: Positive for hypertension, fibromyalgia, hyperlipidemia, allergy, depression, osteoarthritis, vocal cord polyps. PAST SURGICAL HISTORY: Tubal ligation, cholecystectomy. MEDICATIONS: Lyrica, Percocet, Flexeril, Tylenol, Fenofibrate, amlodipine, metoprolol, Cymbalta, Abilify, Breo, Flonase, Lasix, losartan. SOCIAL HISTORY: Positive for smoking about 1 pack a day for 30 years. Presently patient switched to electronic cigarettes. Alcohol consumption none. FAMILY HISTORY: Hypertension, hyperlipidemia, sleep apnea, cancer, narcolepsy, acid reflux, COPD. REVIEW OF SYSTEMS: Multiple awakenings from sleep, significant excessive daytime sleepiness. PHYSICAL EXAM: GENERAL: lady without distress. VITAL SIGNS: BP 98/62, HR 95, RR 18, height 5 feet 8-1/2 inches, weight 282.2 pounds, body mass index 42.2, temperature 97.7. HEENT: Oropharynx showed extremely low position of soft palate. Mallampati 4 with a wide neck 16 inches in circumference. Neck Supple, no JVD. Thyroid is not palpable. LUNGS Clear to percussion and to auscultation. Good air exchange. No wheezing or rhonchi. HEART S1, S2 regular. No murmurs, gallops, or rubs. ABDOMEN: Obese. Soft and nontender. Bowel sounds are present. No organomegaly appreciated. EXTREMITIES No clubbing or cyanosis. GENERAL NEUROLOGIST Awake, alert, and oriented X3. Cranial nerves 2 to 7 intact. There is no fasciculation or atrophy. noted. No focal deficits observed. IMPRESSION: 1. Snoring, witnessed episodes of stopped breathing, witnessed episodes of stopped breathing during the sleep wound extremely low position of soft palate, Mallampati 4, and before that also presents with symptoms of significant excessive daytime sleepiness by Ramsay Sleepiness Scale. Obstructive sleep apnea-hypopnea syndrome. Oximetry 94%. 2. Obesity, BMI 42.2. 3. Hypertension. 4. History of fibromyalgia. 5. History of polyarthritis. 6. Hyperlipidemia. 7. Allergy. 8. History of depression. 9. Status post cholecystectomy. 10.Status post tubal ligation. 11.History of polyps on vocal cords. 12.Status post smoking for about 30 pack years. PLAN: 1. Polysomnography for evaluation of patient's breathing during sleep. 2. CPAP/BiPAP titration if sleep study confirms obstructive sleep apnea-hypopnea syndrome. 3. Preferable position during sleep on the side. 4. No driving if patient feels any sleepiness. 5. I will see patient for follow up visit to explain results of testing and following plan. Thank you very much for referring this patient for consultation, Sincerely, Dereck James MD, PhD, FAASM Diplomat of [place] [employer] [place] [employer] [facility] [place] MMODL / IJN: [id number] /
== END ==
LOC: SLEEP 14:52
PROVIDERS: ATTEND Internal Medicine
DX: G47.33 Obstructive sleep apnea (adult) (pediatric) (principal); E66.9 Obesity, unspecified; I10 Essential (primary) hypertension; M79.7 Fibromyalgia; M13.0 Polyarthritis, unspecified; E78.5 Hyperlipidemia, unspecified; F32.9 Major depressive disorder, single episode, unspecified; Z88.9 Allergy status to unspecified drugs, medicaments and biological substances; Z90.49 Acquired absence of other specified parts of digestive tract; Z98.51 Tubal ligation status; Z87.19 Personal history of other diseases of the digestive system; Z87.891 Personal history of nicotine dependence; Z68.41 Body mass index [BMI] 40.0-44.9, adult; Z79.899 Other long term (current) drug therapy; Z79.891 Long term (current) use of opiate analgesic
CPT/HCPCS: 99211

== ENCOUNTER → 2018-10-13 | Outpatient (CLI) | payer MEDICARE, OTHER ==
[2018-10-13 17:18] LABS: Basophils % (A) 0 %; Eosinophils # (A) 0.5 k/uL (0-0.7); Eosinophils % (A) 5 %; HCT 46.1 % (34.0-46.0); Lymphocytes % (A) 31 %; MCH 29.2 pg (25.0-35.0); MCHC 32.6 g/dL (31.0-37.0); MCV 89.5 fL (80.0-100.0); Mean Platelet Volume 8.1; Monocytes # (A) 0.5 k/uL (0-1.0); Monocytes % (A) 5 %; Neutrophils # (A) 5.5 k/uL (1.3-7.7); Neutrophils % (A) 56 %; Platelet Count 223 k/uL (150-450); RBC 5.15 m/uL (3.80-5.40); WBC 9.7 k/uL (3.8-10.6)
[2018-10-13 17:35] LABS: Albumin 5.2 g/dL (3.5-5.0); Calcium 10.3 mg/dL (8.4-10.2); Potassium 3.9 mmol/L (3.5-5.1); Total Bilirubin 0.6 mg/dL (0.2-1.3); Total Protein 8.4 g/dL (6.3-8.2)
[2018-10-14 01:05] LABS: Hemoglobin A1C 5.6 % (4.0-6.0)
== END | disposition home or self-care (01) ==
LOC: LABPAT 16:29
PROVIDERS: ATTEND Surgery
DX: Z01.818 Encounter for other preprocedural examination (principal); Z01.812 Encounter for preprocedural laboratory examination; D50.8 Other iron deficiency anemias
CPT/HCPCS: 80053; 83036; 83540; 85025; 93005

== ENCOUNTER 2018-10-24 08:00 | Inpatient (IN) | payer MEDICARE, OTHER ==
[~2018-10-24 08:00] MED LIST: DEXAMETHASONE SOD PHOSPHATE 10 MG/ML 1 ML VIAL IV ONE; ENOXAPARIN 40 MG/0.4 ML SYRINGE SQ ONE; LIDOCAINE 1% 20 ML VIAL (10MG/ML) FOR IV START INTRADERMA PRN; ONDANSETRON 4 MG/2 ML VIAL IVP ONE; SCOPOLAMINE 1.5MG/72HR PATCH TRANSDERM ONE; ceFAZolin IN SWFI 2 GM/20 ML SYRINGE IVP ONE
--- NOTE | 2018-10-24 11:18 | P.GSHP ---
History of Present Illness H&P Date: 10/24/18 Chief Complaint: Morbid obesity, BMI 41 This is a 48-year-old female who presents today for laparoscopic sleeve gastrectomy. Patient's had lifetime problems obesity. Her BMI is 41. She has severe comorbidities related to morbid obesity. Patient aware the risks of surgery including injury to the stomach, liver spleen. She is also aware of the right risk of gastric staple line disruption bleeding or perforation. Past Medical History Past Medical History: Cancer, Fibromyalgia, Hyperlipidemia, Hypertension, Liver Disease, Sleep Apnea/CPAP/BIPAP Additional Past Medical History / Comment(s): RECENTLY DIAGNOSED WITH SLEEP APNEA, CPAP BEIND DELIVERED TODAY (10/21/18). Seasonal allergies. Pt states clotting disorder. Cervical ca - HPV. Chronic pain. Chronic fatigue,. BILATERAL LOWER EXTREMITY EDEMA. History of Any Multi-Drug Resistant Organisms: None Reported Past Surgical History: Tubal Ligation Additional Past Surgical History / Comment(s): bunionectomy left Past Anesthesia/Blood Transfusion Reactions: No Reported Reaction Past Psychological History: Depression Smoking Status: Current every day smoker Past Alcohol Use History: None Reported Additional Past Alcohol Use History / Comment(s): HAS SMOKED FOR OVER 35 YRS, ATTEMPTING TO QUIT SMOKING, DOWN TO 1 CIG PER DAY AND USING E-PEN. Past Drug Use History: None Reported - Past Family History Son(s) Family Medical History: Deep Vein Thrombosis (DVT) Additional Family Medical History / Comment(s): elevated clotting disorder Daughter(s) Additional Family Medical History / Comment(s): elevated clotting disorder Mother Family Medical History: Hypertension Additional Family Medical History / Comment(s): at 64 - "arterial htn" Medications and Allergies Home Medications Medication Instructions Recorded Confirmed Type Cyclobenzaprine [Flexeril] 10 mg PO TID 07/25/15 10/21/18 History Pregabalin [Lyrica] 150 mg PO TID 07/25/15 10/21/18 History amLODIPine [Norvasc] 5 mg PO QAM 07/25/15 10/21/18 History ARIPiprazole [Abilify] 5 mg PO HS 02/28/18 10/21/18 History Atomoxetine HCl [Strattera] 80 mg PO QAM 02/28/18 10/21/18 History Furosemide [Lasix] 20 mg PO QAM 02/28/18 10/21/18 History Loratadine [Claritin] 10 mg PO DAILY 02/28/18 10/21/18 History Losartan Potassium [Cozaar] 100 mg PO QAM 02/28/18 10/21/18 History Ranitidine HCl [Zantac] 150 mg PO BID 02/28/18 10/21/18 History Umeclidinium [place] [Incruse 1 puff INHALATION DAILY 02/28/18 10/21/18 History Ellipta] oxyCODONE HCL/ACETAMINOPHEN 1 tab PO Q6HR PRN 02/28/18 10/21/18 History [Percocet 10-325 mg] Acyclovir [Zovirax] 800 mg PO DIRECTED PRN 08/30/18 10/21/18 History Fluticasone/Vilanterol [Breo 1 puff INHALATION DIRECTED 08/30/18 10/21/18 History Ellipta 100-25 Mcg Inhaler] Ergocalciferol (Vitamin D2) 50,000 unit PO FR 09/06/18 10/21/18 History [Drisdol] Acetaminophen [Tylenol] 325 mg PO Q6H PRN 10/21/18 10/21/18 History Aspirin 325 mg PO QAM 10/21/18 10/21/18 History DULoxetine HCL [Cymbalta] 3 tab PO BID 10/21/18 10/21/18 History Diclofenac Sodium [Voltaren Gel] 1 applic TOPICAL DAILY PRN 10/21/18 10/21/18 History Fluconazole [Diflucan] 150 mg PO QAM 10/21/18 10/21/18 History Metoprolol Tartrate 0.5 tab PO BID 10/21/18 10/21/18 History Allergies Allergy/AdvReac Type Severity Reaction Status Date / Time shellfish derived [Shellfish] Allergy Anaphylaxis Verified 10/21/18 13:26 latex AdvReac Rash/Hives Verified 10/21/18 13:26 PCN Allergy Rash/Hives Uncoded 10/21/18 13:26 Surgical - Exam Vital signs are stable BMI 41 - General well developed, well nourished, no distress - Eyes PERRL - ENT normal pinna - Neck no masses - Respiratory normal expansion - Cardiovascular Rhythm: regular - Abdomen Abdomen: soft, non tender Assessment and Plan Assessment: Morbid obesity, BMI 41. We'll perform laparoscopic sleeve gastrectomy.
[2018-10-24] MEDS: LACTATED RINGERS 1,000 ML IV SCH (11:36)
[2018-10-24] MEDS ORDERED: ePHEDrine SULFATE/0.9% NACL/PF 50 MG/5 ML SYRINGE IV ONE (11:42)
[2018-10-24] MEDS ORDERED: fentaNYL (PF) 50 MCG/ML 2 ML AMP ONE (11:42)
[2018-10-24] MEDS ORDERED: LIDOCAINE 1% INJ 10MG/ML (20 ML MDV) ONE (11:42)
[2018-10-24] MEDS ORDERED: MIDAZOLAM 2 MG/2 ML VIAL ONE (11:42)
[2018-10-24] MEDS ORDERED: ROCURONIUM BROMIDE 10 MG/ML 10 ML VIAL IV ONE (11:42)
[2018-10-24] MEDS ORDERED: ONDANSETRON 4 MG/2 ML VIAL ONE (11:42)
[2018-10-24] MEDS ORDERED: PHENYLEPHRINE-0.9% NACL SYG 1 MG/10 ML SYRINGE ONE (11:42)
[2018-10-24] MEDS ORDERED: NEOSTIGMINE 1 MG/ML 10 ML VIAL ONE (11:42)
[2018-10-24] MEDS ORDERED: GLYCOPYRROLATE 0.2 MG/ML 2 ML VIAL ONE (11:42)
[2018-10-24] MEDS ORDERED: PROPOFOL 10 MG/ML 20 ML VIAL IV ONE (11:42)
[2018-10-24] MEDS ORDERED: SUCCINYLCHOLINE CHLORIDE VIAL 200 MG/10 ML VIAL IV ONE (11:42)
[2018-10-24] MEDS ORDERED: KETOROLAC 30 MG/ML 1 ML VIAL ONE (11:42)
[2018-10-24] MEDS ORDERED: BUPIVACAIN-EPI 0.5%-1:200,000 30 ML VIAL SQ ONE (12:24)
[2018-10-24] MEDS ORDERED: LACTATED RINGERS 1,000 ML IV ONE (12:32)
[2018-10-24] MEDS ORDERED: diphenhydrAMINE 50 MG/ML 1 ML VIAL IVP PRN (12:59)
[2018-10-24] MEDS ORDERED: HYOSCYAMINE ORAL DROPS 1.875 MG/15 ML BOTTLE PO PRN (12:59)
[2018-10-24] MEDS ORDERED: NALOXONE 0.4 MG/ML 1 ML VIAL IV PRN (12:59)
--- NOTE | 2018-10-24 12:59 | P.OP ---
Date of Procedure: 10/24/18 Preoperative Diagnosis: Morbid obesity, BMI 41 Postoperative Diagnosis: Morbid obesity Procedure(s) Performed: Laparoscopic sleeve gastrectomy Anesthesia: TALITA Surgeon: Prasad Lindsey Estimated Blood Loss (ml): 5 Pathology: other (Stomach) Condition: stable Disposition: PACU Description of Procedure: The patient was placed on the operating room table in the supine position. She received general anesthesia and then was placed in dorsal lithotomy position. Her abdomen was prepped and draped in sterile fashion. The skin incision sites were anesthetized 1% local Xylocaine. And then the skin was incised with an 11 blade in the left lateral position. Using a blade less trocar under direct visualization the peritoneal cavity was entered. The abdomen was insufflated and then a 5 mm laparoscope was placed into the peritoneal cavity. A 5 mm trocar was placed in the right epigastric, and right lateral position. A 15 mm trocar was placed in the supra-umbilical position and another 5 mm trocar was placed in the left lateral position. The left lateral lobe of the liver was retracted. The stomach was visualized. The greater curvature of the stomach was then dissected using the Harmonic scissors. The dissection occurred approximately 5 cm from the pylorus to the level of the left hue. There was no hiatal hernia seen. At this point a 40-[place] bougie dilator was placed the oropharynx and passed into the esophagus and into the stomach by the MELTER ASSISTANT. The sleeve gastrectomy was performed by using the powered echelon stapler with a seam guard buttress material. Sequential firings of the stapler were performed. The gastric remnant was then brought out through the 15 mm trocar site. The dilator was withdrawn. And a orogastric tube was replaced into the stomach. The stomach was insufflated with 200 mL of methylene blue normal saline. There was no evidence of extravasation. The abdomen was irrigated there is no bleeding seen. The Mando-Mohan device was used to close the 15 mm trocar with 0 Vicryl. Skin was closed with interrupted 3-0 Monocryl sutures once the trochars withdrawn. Dermabond dressing was applied. Patient was sent to recovery in stable condition.
[2018-10-24] MEDS ORDERED: METOCLOPRAMIDE 5 MG/ML 2 ML VIAL IVP ONE (13:20)
[2018-10-24] MEDS ORDERED: diphenhydrAMINE 50 MG/ML 1 ML VIAL IVP ONE (13:30)
[2018-10-24] MEDS: HYDROmorphone 0.5 MG/0.5 ML SYRINGE IVP PRN ×8 (13:39→23:02)
[2018-10-24] MEDS: 0.9% NACL WITH KCL 20 MEQ/L 1,000 ML IV SCH ×2 (14:58→23:02)
[2018-10-24] MEDS: SIMETHICONE 40 MG/0.6 ML DROPS 2,000 MG/30 ML BOTTLE PO PRN ×2 (15:15→22:45)
[2018-10-24 15:35] VITALS: BMI 40.9
[2018-10-24] MEDS: ALBUTEROL NEBULIZED 2.5 MG/3 ML INHALATION SCH ×2 (15:50→20:38)
[2018-10-24] MEDS: KETOROLAC 30 MG/ML 1 ML VIAL IVP SCH ×2 (18:00→23:01)
[2018-10-24] MEDS: CLINDAMYCIN 900 MG in DEXTROSE 5% IN WATER 50 ML IVPB SCH ×2 (18:00)
--- NOTE | 2018-10-24 23:26 | CONS ---
CONSULTATION DATE OF SERVICE: 10/24/2018 REASON FOR CONSULTATION: Advice regarding hypertension, hyperlipidemia, multiple medical issues requested by Dr. Lindsey. HISTORY OF PRESENT ILLNESS: This 48 -year-old woman with a past history of fibromyalgia, hypertension, hyperlipidemia, history of obstructive sleep apnea, being followed by Dr. Dyan Foy in the outpatient setting underwent laparoscopic sleeve gastrectomy Dr. Lindsey for morbid obesity. The patient is complaining of some pain. Otherwise there is no history of fever, rigors. No history of headache, loss of consciousness, seizures at this time. PAST MEDICAL HISTORY: Of fibromyalgia, hypertension, hyperlipidemia, obstructive sleep apnea, recently diagnosed sleep apnea. MEDICATIONS: Home medications are: 1. Oxycodone Percocet 10/320 mg q.6. 2. Norvasc 5 mg q.a.m. 3. Incruse Ellipta 1 puff daily. 4. Zantac 150 mg b.i.d. 5. Lyrica 150 mg p.o. t.i.d. 6. Metoprolol 12.5 mg p.o. daily. 7. Cozaar 100 mg p.o. b.i.d. 8. Claritin 10 mg p.o. daily. 9. Lasix 20 mg q.a.m. 10.Breo Ellipta 100/25 mg 1 puff daily. 11.Diflucan 150 mg q.a.m. 12.Drisdol 21987 p.o. Wednesday. 13.Voltaren gel 1 application daily p.r.n. 14.Cymbalta 60 mg p.o. b.i.d. 15.Flexeril 10 mg p.o. t.i.d. 16.Strattera 80 mg q.a.m. 17.Aspirin 320 mg q.a.m. 18.Zovirax 800 mg p.r.n. 19.Tylenol 325 mg q.6h p.r.n. 20.Abilify 5 mg q.h.s. ALLERGIES: SHELLFISH, LATEX and PENICILLIN. FAMILY HISTORY: History of DVT, clotting disorder. SOCIAL HISTORY: Continued ongoing nicotine dependence, history of alcohol intake. REVIEW OF SYSTEMS: ENT: No diminished vision. No diminished hearing. CARDIOVASCULAR: No angina or palpitations. RESPIRATORY: There is no cough or hemoptysis. GI as mentioned earlier. : No dysuria. NERVOUS SYSTEM: No numbness or weakness. ALLERGY/IMMUNOLOGY: No asthma or hayfever. MUSCULOSKELETAL: As mentioned earlier. HEMATOLOGY/ONCOLOGY: No history of anemia. ENDOCRINE: No history of diabetes or hypothyroidism. CONSTITUTIONAL: As mentioned earlier. Dermatology: Negative. Rheumatology: Negative. Psychiatry: As mentioned earlier. PHYSICAL EXAMINATION: The patient is alert and oriented times three. Pulse 109, blood pressure 121/80, respiration 18, temperature 97.4, pulse ox 94% on 4 L. HEENT: Conjunctivae normal. Oral mucosa moist. Neck is no jugular venous distention. No carotid bruit. No lymph node enlargement. CARDIOVASCULAR: S1. S2 muffled. RESPIRATORY: Breath sounds diminished in the bases. A few scattered rhonchi. No crackles. ABDOMEN: Soft, status post surgery. LEGS: No edema. No swelling. NERVOUS SYSTEM: Higher functions as mentioned earlier. Moves all 4 limbs. No focal motor or sensory deficits. LYMPHATICS: No lymph nodes palpable in the neck, axillae or groin. SKIN: No ulcer. No rash or bleeding. JOINTS: No active deforming arthropathy. Lymphatics: No lymphadenopathy. LABS: The preop labs hematology is normal. Biags are normal and the creatinine is 1.22, calcium is 10.3, UA was noted. The EKG noted. ASSESSMENT: 1. Status post laparoscopic sleeve gastrectomy for morbid obesity. 2. Fibromyalgia. 3. Hypertension. 4. Hyperlipidemia. 5. Liver disease. 6. History of sleep apnea. 7. History of depression. 8. History of continued ongoing nicotine dependence. 9. FULL CODE: RECOMMENDATIONS AND DISCUSSION: In this 48-year-old woman who presented with multiple complex medical issues, we will monitor the patient closely, continue the current medications, management and symptomatic treatment. I recommend DVT prophylaxis. Incentive spirometer. Smoking cessations. Habitrol patch. Resume the home medications. We will follow the patient closely with you during the hospital stay. The patient may be asked to follow up with primary care physician closely after discharge. Thank you Dr. Lindsey for letting us taking part in the care of this patient. When the patient is p.o. the home medication may be restarted as ordered. MMODL / IJN: [id number] /
[2018-10-25] MEDS: ENOXAPARIN 40 MG/0.4 ML SYRINGE SQ SCH ×3 (00:05→22:31)
[2018-10-25] MEDS: HYDROmorphone 0.5 MG/0.5 ML SYRINGE IVP PRN ×7 (01:54→17:18)
[2018-10-25] MEDS: CLINDAMYCIN 900 MG in DEXTROSE 5% IN WATER 50 ML IVPB SCH ×2 (01:54)
[2018-10-25] MEDS: 0.9% NACL WITH KCL 20 MEQ/L 1,000 ML IV SCH ×4 (03:43→22:31)
[2018-10-25] MEDS: KETOROLAC 30 MG/ML 1 ML VIAL IVP SCH ×4 (04:35→22:31)
[2018-10-25] MEDS: ONDANSETRON 4 MG/2 ML VIAL IVP PRN ×3 (04:35→17:17)
[2018-10-25] MEDS: LACTATED RINGERS 1,000 ML IV SCH ×2 (05:46→21:17)
[2018-10-25] MEDS: PANTOPRAZOLE 40 MG/10 ML VIAL IV SCH (07:09)
[2018-10-25] MEDS: SIMETHICONE 40 MG/0.6 ML DROPS 2,000 MG/30 ML BOTTLE PO PRN ×2 (07:15→17:25)
[2018-10-25 07:47] LABS: Basophils % (A) 0 %; Eosinophils # (A) 0.1 k/uL (0-0.7); Eosinophils % (A) 1 %; HCT 40.2 % (34.0-46.0); HGB 13.3 gm/dL (11.4-16.0); Lymphocytes # (A) 1.6 k/uL (1.0-4.8); Lymphocytes % (A) 14 %; MCH 29.3 pg (25.0-35.0); MCV 88.6 fL (80.0-100.0); Mean Platelet Volume 8.5; Monocytes # (A) 0.6 k/uL (0-1.0); Monocytes % (A) 5 %; Neutrophils # (A) 8.8 k/uL (1.3-7.7); Neutrophils % (A) 79 %; Platelet Count 213 k/uL (150-450); RBC 4.54 m/uL (3.80-5.40); RDW 14.4 % (11.5-15.5); WBC 11.2 k/uL (3.8-10.6)
[2018-10-25 07:50] LABS: Anion Gap 11 mmol/L; Blood Urea Nitrogen 15 mg/dL (7-17); Calcium 9.1 mg/dL (8.4-10.2); Carbon Dioxide 21 mmol/L (22-30); Chloride 110 mmol/L (98-107); Magnesium 1.9 mg/dL (1.6-2.3); Phosphorus 2.9 mg/dL (2.5-4.5); Potassium 4.8 mmol/L (3.5-5.1); Sodium 142 mmol/L (137-145)
[2018-10-25] MEDS ORDERED: IPRATROPIUM 0.5 MG/2.5 ML NEBU INHALATION SCH (08:00)
[2018-10-25] MEDS: IPRATROPIUM-ALBUTEROL 3 ML NEB INHALATION SCH ×4 (08:56→19:40)
[2018-10-25] MEDS: SYMBICORT 80-4.5 MCG INHALER INHALATION SCH ×2 (08:57→19:40)
[2018-10-25] MEDS ORDERED: DULoxetine HCL 60 MG CAPSULE.DR PO SCH (09:00)
[2018-10-25] MEDS: ALBUTEROL NEBULIZED 2.5 MG/3 ML INHALATION SCH (09:03)
--- NOTE | 2018-10-25 10:53 | FL ---
EXAMINATION TYPE: FL UGI DATE OF EXAM: 10/25/2018 COMPARISON: NONE HISTORY: Status post gastric sleeve. TECHNIQUE: A single contrast UGI study is performed with Omnipaque 300. 18 fluoroscopic images were saved with 51 seconds of fluoroscopy time. FINDINGS: The patient swallowed contrast without difficulty or delay. Esophageal peristalsis and mo tility are within normal limits. There is mildly delayed flow of contrast along the diaphragmatic hia tus into the stomach, there is no evidence of contrast extravasation to suggest leak. There is a smal l distal esophageal diverticulum with contained smoothly marginated contrast persisting throughout th e exam. Patient remains asymptomatic. IMPRESSION: No evidence of leak status post gastric sleeve surgery with mild delay at the gastroesoph ageal junction likely from postoperative edema.
[2018-10-25] MEDS: METOPROLOL TARTRATE 12.5 MG TAB PO SCH ×2 (12:04→20:33)
[2018-10-25] MEDS: FUROSEMIDE 20 MG TAB PO SCH (12:04)
[2018-10-25] MEDS: LOSARTAN 50 MG TAB PO SCH (12:05)
[2018-10-25] MEDS: PREGABALIN 75 MG CAP PO SCH ×3 (12:15→20:33)
[2018-10-25] MEDS: DULoxetine HCL 20 MG CAPSULE.DR PO SCH ×2 (12:46→20:34)
--- NOTE | 2018-10-25 13:06 | P.PN ---
Subjective Progress Note Date: 10/25/18 CHIEF COMPLAINT: obesity HISTORY OF PRESENT ILLNESS: 48-year-old female who is status post laparoscopic sleeve gastrectomy. POD #1. Esophagram completed this morning negative for obstruction or leak. Patient reports significant pain this morning and is requiring IV narcotics. Vital signs stable. Afebrile. PHYSICAL EXAM: VITAL SIGNS: Reviewed. GENERAL: Well-developed in no acute distress. HEENT: No sclera icterus. Extraocular movements grossly intact. Moist buccal mucosa. Head is atraumatic, normocephalic. ABDOMEN: Soft. Nondistended. Nontender. Surgical incision sites clean dry intact. NEUROLOGIC: Alert and oriented. Cranial nerves II through XII grossly intact. ASSESSMENT: 1. Morbid obesity, status post upper septic sleep gastrectomy PLAN: 1. Begin bariatric clear liquid diet 2. Activity as tolerated. Patient encouraged to be out of bed, sitting in the chair, and ambulating in the hallway 3. Incentive spirometry 4. Pain control 5. Possible discharge home tomorrow Nurse practitioner note has been reviewed by physician. Signing provider agrees with the documented findings, assessment, and plan of care. Objective - Vital Signs Vital signs: Vital Signs Temp 98.4 F 10/25/18 07:00 Pulse 85 10/25/18 09:12 Resp 16 10/25/18 07:00 BP 130/70 10/25/18 07:00 Pulse Ox 95 10/25/18 09:01 Intake & Output 10/24/18 10/25/18 10/25/18 18:59 06:59 18:59 Intake Total 2200 Output Total 10 350 1100 Balance 2190 -350 -1100 Weight 124 kg Intake: IV 2200 Output: Urine 350 1100 Estimated Blood Loss 10 Other: Voiding Method Toilet Toilet - Labs CBC & Chem 7: 10/25/18 07:22 10/25/18 07:22 Labs: Abnormal Lab Results - Last 24 Hours (Table) 10/25/18 10/25/18 Range/Units 07:22 07:22 WBC 11.2 H (3.8-10.6) k/uL Neutrophils # 8.8 H (1.3-7.7) k/uL Chloride 110 H (98-107) mmol/L Carbon Dioxide 21 L (22-30) mmol/L
[2018-10-25] MEDS: CYCLOBENZAPRINE 10 MG TAB PO SCH ×2 (14:31→20:33)
[2018-10-25] MEDS: amLODIPine 5 MG TAB PO SCH (18:17)
[2018-10-25] MEDS: ARIPiprazole 5 MG TAB PO SCH (20:33)
[2018-10-26] MEDS ORDERED: KETOROLAC 30 MG/ML 1 ML VIAL ONE
[2018-10-26] MEDS ORDERED: ENOXAPARIN 40 MG/0.4 ML SYRINGE SQ ONE
[2018-10-26] MEDS ORDERED: ONDANSETRON 4 MG/2 ML VIAL ONE
[2018-10-26] MEDS ORDERED: HYDROmorphone 0.5 MG/0.5 ML SYRINGE ONE
[2018-10-26] MEDS: KETOROLAC 30 MG/ML 1 ML VIAL IVP SCH ×2 (05:45→11:01)
[2018-10-26] MEDS: SIMETHICONE 40 MG/0.6 ML DROPS 2,000 MG/30 ML BOTTLE PO PRN ×4 (05:46→21:22)
[2018-10-26] MEDS: PREGABALIN 75 MG CAP PO SCH ×3 (08:09→21:21)
[2018-10-26] MEDS: LOSARTAN 50 MG TAB PO SCH (08:09)
[2018-10-26] MEDS: METOPROLOL TARTRATE 12.5 MG TAB PO SCH ×2 (08:09→21:21)
[2018-10-26] MEDS: amLODIPine 5 MG TAB PO SCH (08:09)
[2018-10-26] MEDS: CYCLOBENZAPRINE 10 MG TAB PO SCH ×3 (08:09→21:21)
[2018-10-26] MEDS: FUROSEMIDE 20 MG TAB PO SCH (08:09)
[2018-10-26] MEDS: DULoxetine HCL 20 MG CAPSULE.DR PO SCH ×2 (08:10→21:21)
[2018-10-26] MEDS: ONDANSETRON 4 MG/2 ML VIAL IVP PRN (08:12)
[2018-10-26] MEDS: PANTOPRAZOLE 40 MG/10 ML VIAL IV SCH (08:13)
[2018-10-26] MEDS: HYDROmorphone 0.5 MG/0.5 ML SYRINGE IVP PRN (08:14)
[2018-10-26] MEDS: Atomoxetine Hcl [Strattera] PO SCH (08:16)
[2018-10-26] MEDS ORDERED: METOCLOPRAMIDE 5 MG/ML 2 ML VIAL IVP STA (08:38)
[2018-10-26] MEDS: SYMBICORT 80-4.5 MCG INHALER INHALATION SCH ×2 (09:00→20:45)
[2018-10-26] MEDS: IPRATROPIUM-ALBUTEROL 3 ML NEB INHALATION SCH ×4 (09:00→20:45)
[2018-10-26] MEDS: oxyCODONE-APAP 10-325MG 1 EACH TAB PO PRN ×3 (10:59→23:00)
[2018-10-26] MEDS: ENOXAPARIN 40 MG/0.4 ML SYRINGE SQ SCH ×2 (11:02→23:01)
--- NOTE | 2018-10-26 13:03 | P.PN ---
Subjective Progress Note Date: 10/26/18 CHIEF COMPLAINT: obesity HISTORY OF PRESENT ILLNESS: 48-year-old female who is status post laparoscopic sleeve gastrectomy. POD #2. Patient complains of pain this morning and is requiring IV narcotics. She reports bloating and gas pains. Patient has been ambulating in the hallway. Denies passing flatus or having BM. Denies nausea or vomiting. PHYSICAL EXAM: VITAL SIGNS: Reviewed. GENERAL: Well-developed in no acute distress. HEENT: No sclera icterus. Extraocular movements grossly intact. Moist buccal mucosa. Head is atraumatic, normocephalic. ABDOMEN: Soft. Nondistended. Nontender. Surgical incision sites clean dry intact. NEUROLOGIC: Alert and oriented. Cranial nerves II through XII grossly intact. ASSESSMENT: 1. Morbid obesity, status post laparoscopic sleeve gastrectomy PLAN: 1. Continue bariatric clear liquid diet 2. Increase activity as tolerated 3. Pain control. Reduce IV narcotic use. Restart home narcotics. 4. Increase frequency of simethicone drops 5. Reglan x 1 dose 6. Patient states she is not ready to be discharged today. She is requesting to stay until tomorrow. Plan for discharge home tomorrow. Nurse practitioner note has been reviewed by physician. Signing provider agrees with the documented findings, assessment, and plan of care. Objective - Vital Signs Vital signs: Vital Signs Temp 99.0 F 10/26/18 07:00 Pulse 99 10/26/18 07:00 Resp 16 10/26/18 07:00 BP 151/91 10/26/18 07:00 Pulse Ox 96 10/26/18 07:00 Intake & Output 10/25/18 10/26/18 10/26/18 18:59 06:59 18:59 Intake Total 1380 350 Output Total 1100 900 Balance 280 -550 Weight 124 kg Intake: Intake, IV Titration 1200 200 Amount 0.9% NaCl with KCl 20 Meq 1200 200 /l 1,000 ml @ 100 mls/hr IV .Q10H [facility] Rx#: [id number] Oral 180 150 Output: Urine 1100 900 Other: Voiding Method Toilet Toilet Toilet - Labs CBC & Chem 7: 10/25/18 07:22 10/25/18 07:22
[2018-10-26] MEDS ORDERED: HYDROmorphone 0.5 MG/0.5 ML SYRINGE IVP PRN (13:04)
[2018-10-26] MEDS: 0.9% NACL WITH KCL 20 MEQ/L 1,000 ML IV SCH ×2 (16:01→23:16)
--- NOTE | 2018-10-26 17:47 | PN ---
PROGRESS NOTE DATE OF SERVICE: 10/25/2018 This 48-year-old woman who was admitted after laparoscopic sleeve gastrectomy was complaining of severe abdominal pain postoperatively. There is no chest pain, no palpitations, no shortness of breath. On exam, alert and oriented x3. The pulse is 96, blood pressure 129/83, respiration 17, temperature 98.4, pulse ox 92% on room air. HEENT: Conjunctivae normal. NECK: No jugular venous distention. CARDIOVASCULAR SYSTEM: S1, S2 muffled. RESPIRATORY SYSTEM: Breath sounds diminished at the bases. A few scattered rhonchi. No crackles. ABDOMEN: Soft. Status post surgery. LEGS: No edema. No swelling. NERVOUS SYSTEM: No focal deficit. LABS: WBC 11.2, hemoglobin 13.3. ASSESSMENT: 1. Status post laparoscopic sleeve gastrectomy for morbid obesity. 2. Fibromyalgia. 3. Hypertension. 4. Hyperlipidemia. 5. History of liver disease. 6. History of sleep apnea. 7. History of depression. 8. History of and continued ongoing nicotine dependence. 9. FULL CODE. RECOMMENDATIONS AND DISCUSSION: I recommend to continue current medications, continue with the monitoring, symptomatic treatment. Incentive spirometry. DVT prophylaxis. Closely follow with General Surgery. Further recommendations to follow. MMODL / IJN: [id number] /
--- NOTE | 2018-10-26 17:53 | PN ---
PROGRESS NOTE DATE OF SERVICE: 10/26/2018 This 48-year-old woman who was admitted after laparoscopic sleeve gastrectomy is still complaining of abdominal pain. The patient is being closely monitored at this time. There is no history of any fever, rigor or chills. Past medical history reviewed. PHYSICAL EXAMINATION: Patient is alert, oriented x3. The pulse is 92, blood pressure 108/74, respiration 16, temperature 97.8, pulse ox 92% on room air. HEENT: Conjunctivae normal. NECK: No jugular venous distention. CARDIOVASCULAR SYSTEM: S1, S2 muffled. RESPIRATORY SYSTEM: Breath sounds diminished at the bases. A few scattered rhonchi and crackles. ABDOMEN: Soft, non-tender. LEGS: Status post surgery. NERVOUS SYSTEM: No focal deficit. LABS: Labs are reviewed. ASSESSMENT: 1. Status post laparoscopic sleeve gastrectomy for morbid obesity. 2. Fibromyalgia. 3. Hypertension. 4. Hyperlipidemia. 5. History of liver disease. 6. History of sleep apnea. 7. History of depression. 8. History of and continued ongoing nicotine dependence. 9. FULL CODE. RECOMMENDATIONS AND DISCUSSION: I recommend to continue current medications, continue with the monitoring, symptomatic treatment. Closely follow with Surgery. Pain management. Otherwise, continue to monitor. Further recommendations to follow. Incentive spirometry. MMODL / IJN: [id number] /
[2018-10-26 19:03] VITALS: RESP 17
[2018-10-26] MEDS: ARIPiprazole 5 MG TAB PO SCH (21:21)
[2018-10-26] MEDS: LACTATED RINGERS 1,000 ML IV SCH (23:16)
[2018-10-27] MEDS: SIMETHICONE 40 MG/0.6 ML DROPS 2,000 MG/30 ML BOTTLE PO PRN ×2 (04:45→10:07)
[2018-10-27] MEDS: oxyCODONE-APAP 10-325MG 1 EACH TAB PO PRN ×2 (04:48→10:07)
[2018-10-27 07:04] VITALS: BP 118/81; PULSE 98; TEMP 98.6
[2018-10-27] MEDS: amLODIPine 5 MG TAB PO SCH (07:05)
[2018-10-27] MEDS: CYCLOBENZAPRINE 10 MG TAB PO SCH (07:05)
[2018-10-27] MEDS: PREGABALIN 75 MG CAP PO SCH (07:05)
[2018-10-27] MEDS: FUROSEMIDE 20 MG TAB PO SCH (07:05)
[2018-10-27] MEDS: METOPROLOL TARTRATE 12.5 MG TAB PO SCH (07:05)
[2018-10-27] MEDS: DULoxetine HCL 20 MG CAPSULE.DR PO SCH (07:06)
[2018-10-27] MEDS: LOSARTAN 50 MG TAB PO SCH (07:06)
[2018-10-27] MEDS: Atomoxetine Hcl [Strattera] PO SCH (07:07)
[2018-10-27] MEDS: PANTOPRAZOLE 40 MG/10 ML VIAL IV SCH (07:08)
[2018-10-27] MEDS: IPRATROPIUM-ALBUTEROL 3 ML NEB INHALATION SCH ×2 (07:59→11:44)
[2018-10-27] MEDS: SYMBICORT 80-4.5 MCG INHALER INHALATION SCH (07:59)
[2018-10-27 09:50] LABS: Basophils % (A) 0 %; Eosinophils # (A) 0.8 k/uL (0-0.7); Eosinophils % (A) 11 %; HCT 46.2 % (34.0-46.0); HGB 14.7 gm/dL (11.4-16.0); Lymphocytes # (A) 2.2 k/uL (1.0-4.8); Lymphocytes % (A) 29 %; MCH 28.3 pg (25.0-35.0); MCHC 31.9 g/dL (31.0-37.0); MCV 88.6 fL (80.0-100.0); Mean Platelet Volume 7.9; Monocytes # (A) 0.4 k/uL (0-1.0); Monocytes % (A) 6 %; Neutrophils % (A) 52 %; Platelet Count 232 k/uL (150-450); RBC 5.21 m/uL (3.80-5.40); WBC 7.7 k/uL (3.8-10.6)
[2018-10-27 10:04] LABS: Calcium 9.7 mg/dL (8.4-10.2); Magnesium 1.8 mg/dL (1.6-2.3)
--- NOTE | 2018-10-27 12:07 | P.DS ---
Providers Date of admission: 10/24/18 10:57 Expected date of discharge: 10/27/18 Attending physician: Prasad Lindsey Consults: 10/24/18 12:59 Consult Physician Routine Consulting Provider: Sánchez Hayes Consult Reason/Comments: Medical management Do you want consulting provider notified?: Yes Primary care physician: [facility] Hospital Course: 48-year-old female who underwent elective laparoscopic sleeve gastrectomy. Patient is doing well postoperatively without any immediate complications. Patient's pain is tolerable on oral medications. Patient tolerating PO intake. Vital signs have been stable. Patient is stable for discharge home today. Please see EMR for further hospital course details. It is noted that the patient takes Percocet on an outpatient basis. No prescription for narcotics will be provided to the patient at discharge. Patient was instructed to resume her Percocet for pain management at the time of discharge. Patient verbalized understanding. Discharge Diagnosis: 1. Morbid obesity, status post laparoscopic sleeve gastrectomy Nurse practitioner note has been reviewed by physician. Signing provider agrees with the documented findings, assessment, and plan of care. Patient Condition at Discharge: Stable Plan - Discharge Summary Discharge Rx Participant: No New Discharge Prescriptions: New Sucralfate [Carafate] 1 gm PO BID #60 tab Omeprazole 40 mg PO DAILY #60 capsule.dr No Action amLODIPine [Norvasc] 5 mg PO QAM Cyclobenzaprine [Flexeril] 10 mg PO TID Pregabalin [Lyrica] 150 mg PO TID oxyCODONE HCL/ACETAMINOPHEN [Percocet 10-325 mg] 1 tab PO Q6HR PRN PRN Reason: Pain ARIPiprazole [Abilify] 5 mg PO HS Atomoxetine HCl [Strattera] 80 mg PO QAM Furosemide [Lasix] 20 mg PO QAM Loratadine [Claritin] 10 mg PO DAILY Losartan Potassium [Cozaar] 100 mg PO QAM Ranitidine HCl [Zantac] 150 mg PO BID Umeclidinium [place] [Incruse Ellipta] 1 puff INHALATION RT-DAILY Fluticasone/Vilanterol [Breo Ellipta 100-25 Mcg Inhaler] 1 puff INHALATION RT-DAILY Acyclovir [Zovirax] 800 mg PO DIRECTED PRN PRN Reason: Cold Sores Ergocalciferol (Vitamin D2) [Drisdol] 50,000 unit PO FR Acetaminophen [Tylenol] 325 mg PO Q6H PRN PRN Reason: Pain Aspirin 325 mg PO QAM Diclofenac Sodium [Voltaren Gel] 1 applic TOPICAL DAILY PRN PRN Reason: Pain DULoxetine HCL [Cymbalta] 60 mg PO BID Fluconazole [Diflucan] 150 mg PO QAM Metoprolol Tartrate 12.5 mg PO BID Discharge Medication List Cyclobenzaprine [Flexeril] 10 mg PO TID 07/25/15 [History] Pregabalin [Lyrica] 150 mg PO TID 07/25/15 [History] amLODIPine [Norvasc] 5 mg PO QAM 07/25/15 [History] ARIPiprazole [Abilify] 5 mg PO HS 02/28/18 [History] Atomoxetine HCl [Strattera] 80 mg PO QAM 02/28/18 [History] Furosemide [Lasix] 20 mg PO QAM 02/28/18 [History] Loratadine [Claritin] 10 mg PO DAILY 02/28/18 [History] Losartan Potassium [Cozaar] 100 mg PO QAM 02/28/18 [History] Ranitidine HCl [Zantac] 150 mg PO BID 02/28/18 [History] Umeclidinium [place] [Incruse Ellipta] 1 puff INHALATION RT-DAILY 02/28/18 [History] oxyCODONE HCL/ACETAMINOPHEN [Percocet 10-325 mg] 1 tab PO Q6HR PRN 02/28/18 [H istory] Acyclovir [Zovirax] 800 mg PO DIRECTED PRN 08/30/18 [History] Fluticasone/Vilanterol [Breo Ellipta 100-25 Mcg Inhaler] 1 puff INHALATION RT- DAILY 08/30/18 [History] Ergocalciferol (Vitamin D2) [Drisdol] 50,000 unit PO FR 09/06/18 [History] Acetaminophen [Tylenol] 325 mg PO Q6H PRN 10/21/18 [History] Aspirin 325 mg PO QAM 10/21/18 [History] DULoxetine HCL [Cymbalta] 60 mg PO BID 10/21/18 [History] Diclofenac Sodium [Voltaren Gel] 1 applic TOPICAL DAILY PRN 10/21/18 [History] Fluconazole [Diflucan] 150 mg PO QAM 10/21/18 [History] Metoprolol Tartrate 12.5 mg PO BID 10/21/18 [History] Omeprazole 40 mg PO DAILY #60 capsule. 10/27/18 [Rx] Sucralfate [Carafate] 1 gm PO BID #60 tab 10/27/18 [Rx] Follow up Appointment(s)/Referral(s): [facility], [NON-STAFF] - As Needed Camilo Foy DO [Primary Care Provider] - 11/03/18 3:00 pm [facility],. [NON-STAFF] - 10/31/18 3:00 pm Patient Instructions/Handouts: Nutrition after Bariatric Surgery (DC), Laparoscopic Sleeve Gastrectomy (DC) Activity/Diet/Wound Care/Special Instructions: Liquid diet No lifting over 10 pounds You may shower. No soaking or tub baths Very light activity until you are reevaluated at your follow up appointment with your surgeon Discharge Disposition: HOME SELF-CARE
[2018-10-27] MEDS: 0.9% NACL WITH KCL 20 MEQ/L 1,000 ML IV SCH (12:21)
[2018-10-27] MEDS: ENOXAPARIN 40 MG/0.4 ML SYRINGE SQ SCH (12:22)
--- NOTE | 2018-10-27 22:07 | PN ---
PROGRESS NOTE DATE OF SERVICE: October 27, 2018. PRESENTING COMPLAINT: Sleeve gastrectomy. INTERVAL HISTORY: Patient is status post sleeve gastrectomy. Some discomfort is present. No nausea, vomiting, did tolerate clear liquids. Overall, otherwise feeling fine. REVIEW OF SYSTEMS: Done for constitutional, cardiovascular, GI, pulmonary; relevant findings as above. CURRENT MEDICATIONS: Reviewed. PHYSICAL EXAMINATION: VITAL SIGNS: Temperature 98.6, pulse 98, respiration 17, blood pressure 108/81, pulse ox 92 percent on room air. GENERAL APPEARANCE: Lying in bed. BMI 41. EYES: Pupils equal. Conjunctivae normal. NECK: JVD not raised. Mass not palpable. RESPIRATORY: Effort normal. LUNGS: Fair air entry. CARDIOVASCULAR: First and second sounds normal. No edema. ABDOMEN: Mild tenderness. Liver and spleen not palpable. No guarding or rigidity. PSYCHIATRY: Alert and oriented x3. Mood and affect normal. INVESTIGATIONS: White count 7.7, hemoglobin 14.7. ASSESSMENT: 1. Laparoscopic sleeve gastrectomy. 2. Morbid obesity BMI 41. 3. Chronic fibromyalgia. 4. Essential hypertension. 5. Hyperlipidemia. 6. Obstructive sleep apnea, awaiting CPAP, chronic clotting disorder, type unknown. 7. Chronic nicotine dependence. Patient does use E-pen. PLAN: The patient is to follow up with the family doctor in a week upon discharge. Care was discussed with the patient. Otherwise patient doing well. Keen to go home. Thank you Dr. Lindsey. CLIVE / TU: [id number] /
== END 2018-10-27 14:32 | disposition home or self-care (01) | DRG 620 ==
LOC: 2ORMAIN 10:57 → 4SSUR 12:58
PROVIDERS: ADMIT Surgery; ATTEND Surgery
PROC: 0DB64Z3 Excision of Stomach, Percutaneous Endoscopic Approach, Vertical (ICD-10-PCS; principal; 2018-10-24 12:00)
DX: E66.01 Morbid (severe) obesity due to excess calories (principal); D68.9 Coagulation defect, unspecified; E78.5 Hyperlipidemia, unspecified; F17.200 Nicotine dependence, unspecified, uncomplicated; F32.9 Major depressive disorder, single episode, unspecified; G47.33 Obstructive sleep apnea (adult) (pediatric); I10 Essential (primary) hypertension; M79.7 Fibromyalgia; K76.9 Liver disease, unspecified; R53.82 Chronic fatigue, unspecified; Z79.899 Other long term (current) drug therapy; Z68.41 Body mass index [BMI] 40.0-44.9, adult; Z79.82 Long term (current) use of aspirin; Z82.49 Family history of ischemic heart disease and other diseases of the circulatory system; G89.29 Other chronic pain; Z83.2 Family history of diseases of the blood and blood-forming organs and certain disorders involving the immune mechanism; Z85.41 Personal history of malignant neoplasm of cervix uteri; Z91.040 Latex allergy status; Z88.0 Allergy status to penicillin; Z91.013 Allergy to seafood; Z79.891 Long term (current) use of opiate analgesic
CPT/HCPCS: 74240; 80048; 80051; 82310; 82565; 83735; 84100; 84520; 85025; 88307; 94640; 94760; 94762

== ENCOUNTER → 2018-11-14 | Outpatient (CLI) | payer MEDICARE, OTHER ==
[2018-11-14 14:45] VITALS: BP 116/83; PULSE 96; TEMP 98.2; BMI 39.9
--- NOTE | 2018-11-14 15:35 | P.HPBAR ---
Bariatric H&P - History & Physicial H&P Date: 11/14/18 History & Physicial: Visit/CC: 3 wk sleeve f/u Patient initial contact: Initial weight: 131.088 kg Initial weight in pounds: 289.00 Height: 5 ft 8.5 in Initial BMI: 43.2 Last weight: Current weight: 120.746 kg Current weight in pounds: 266.20 Current BMI: 39.9 [place] body weight (based on NIH guidelines): 64.637 kg Excess body weight loss: 15.5% The patient is a 48 year-old F who presents for Bariatric Assessment. Patient rents today for sleeve gastrectomy fall. She lost approximately 20 pounds of surgery. She's had no significant problems. Past Medical History Past Medical History: Cancer, Fibromyalgia, Hyperlipidemia, Hypertension, Liver Disease Additional Past Medical History / Comment(s): seasonal allergies, pt states clotting disorder, cervical ca - HPV, slight elevated LFT, chronic pain, chronic fatigue, BLE edema History of Any Multi-Drug Resistant Organisms: None Reported Past Surgical History: Bariatric Surgery, Tubal Ligation Additional Past Surgical History / Comment(s): bunionectomy left, gastric sleeve performed October 2018 (Dr. Lindsey), "severe" sleep apnea Past Anesthesia/Blood Transfusion Reactions: No Reported Reaction Past Psychological History: Depression Smoking Status: Current every day smoker Past Alcohol Use History: None Reported Past Drug Use History: None Reported - Past Family History Son(s) Family Medical History: Deep Vein Thrombosis (DVT) Additional Family Medical History / Comment(s): elevated clotting disorder Daughter(s) Additional Family Medical History / Comment(s): elevated clotting disorder Mother Family Medical History: Hypertension Additional Family Medical History / Comment(s): at 64 - "arterial htn" Surgical - Exam Vital Signs Temp Pulse BP 98.2 F 96 116/83 11/14/18 14:01 11/14/18 14:01 11/14/18 14:01 - General well developed, well nourished - Abdomen Abdomen: soft, non tender Bariatric Assessment & Plan Plan: Status post sleeve gastrectomy. Patient's had excellent weight loss. She'll follow-up in 2 weeks. Bariatric Checklist Checklist: Plan: Checklist: EGD: 1. Hiatal hernia: 2. H. Pylori: HgbA1c: Vitamin D: Smoking: Current every day smoker Primary care physician referral: Dr. Foy Psychiatry clearance: Cardiology clearance: Sleep study: Diet journal: VTE risk score: VTE risk level: Rehab needs at discharge:
== END | disposition home or self-care (01) ==
LOC: BARWHC3 13:32
PROVIDERS: ATTEND Surgery
DX: Z09 Encounter for follow-up examination after completed treatment for conditions other than malignant neoplasm (principal); E66.01 Morbid (severe) obesity due to excess calories; J30.2 Other seasonal allergic rhinitis; F17.200 Nicotine dependence, unspecified, uncomplicated; Z98.84 Bariatric surgery status; Z68.39 Body mass index [BMI] 39.0-39.9, adult
CPT/HCPCS: 97803; G0463; 99211

== ENCOUNTER → 2018-11-28 | Outpatient (CLI) | payer MEDICARE, OTHER ==
[2018-11-28 17:20] LABS: HCT 47.3 % (34.0-46.0); HGB 15.2 gm/dL (11.4-16.0); MCH 29.2 pg (25.0-35.0); MCHC 32.3 g/dL (31.0-37.0); MCV 90.5 fL (80.0-100.0); Mean Platelet Volume 9.1; Platelet Count 211 k/uL (150-450); RBC 5.22 m/uL (3.80-5.40); RDW 15.2 % (11.5-15.5); WBC 8.1 k/uL (3.8-10.6)
[2018-11-29 00:30] LABS: African American GFR (CKD) 62.3 (60.0-200.0); Albumin 4.4 g/dL (3.80-4.90); Albumin/Globulin Ratio 1.69 (1.60-3.17); Anion Gap 16.6 mmol/L (4.00-12.00); BUN/Creat Ratio 15.83 Ratio (12.00-20.00); Calcium 9.7 mg/dL (8.7-10.3); Carbon Dioxide 18.4 mmol/L (21.6-31.8); Globulin 2.6 g/dL (1.6-3.3); Magnesium 1.7 mg/dL (1.5-2.4); Potassium 3.9 mmol/L (3.5-5.5); Total Bilirubin 0.3 mg/dL (0.3-1.2)
[2018-11-29 00:42] LABS: Iron Saturation 10.54 (12.00-45.00)
[2018-11-29 00:50] LABS: Vitamin D 25 Hydroxy 26.9 ng/mL (30.0-100.0)
[2018-11-29 00:51] LABS: Folate, Serum 7.7 ng/mL
== END | disposition home or self-care (01) ==
LOC: LABWHC1 15:56
PROVIDERS: ATTEND Surgery
DX: E66.01 Morbid (severe) obesity due to excess calories (principal); D50.8 Other iron deficiency anemias; D50.9 Iron deficiency anemia, unspecified; K91.2 Postsurgical malabsorption, not elsewhere classified; E55.9 Vitamin D deficiency, unspecified
CPT/HCPCS: 36415; 80053; 82306; 82607; 82746; 83540; 83550; 83735; 84134; 84425; 85027

== ENCOUNTER → 2018-11-28 | Outpatient (CLI) | payer MEDICARE, OTHER ==
[2018-11-28 16:25] VITALS: BP 123/79; PULSE 97; RESP 16; TEMP 97.9; BMI 38.2
--- NOTE | 2018-11-28 16:28 | P.HPBAR ---
Bariatric H&P - History & Physicial H&P Date: 11/28/18 History & Physicial: Visit/CC: Sleeve follow-up Patient initial contact: Initial weight: 131.088 kg Initial weight in pounds: 289.00 Height: 5 ft 8.5 in Initial BMI: 43.2 Last weight: Current weight: 115.666 kg Current weight in pounds: 255.00 Current BMI: 38.2 [place] body weight (based on NIH guidelines): 64.637 kg Excess body weight loss: 23.2% The patient is a 48 year-old F who presents for Bariatric Assessment. Patient presents today for sleeve gastrectomy fall. She's had some mild GERD. She's had excellent weight loss. She lost 11 pounds since her last visit. Past Medical History Past Medical History: Cancer, Fibromyalgia, Hyperlipidemia, Hypertension, Liver Disease Additional Past Medical History / Comment(s): seasonal allergies, pt states aldo tting disorder, cervical ca - HPV, slight elevated LFT, chronic pain, chronic fatigue, BLE edema History of Any Multi-Drug Resistant Organisms: None Reported Past Surgical History: Bariatric Surgery, Tubal Ligation Additional Past Surgical History / Comment(s): bunionectomy left, gastric sleeve performed October 2018 (Dr. Lindsey), "severe" sleep apnea Past Anesthesia/Blood Transfusion Reactions: No Reported Reaction Smoking Status: Current every day smoker - Past Family History Son(s) Family Medical History: Deep Vein Thrombosis (DVT) Additional Family Medical History / Comment(s): elevated clotting disorder Daughter(s) Additional Family Medical History / Comment(s): elevated clotting disorder Mother Family Medical History: Hypertension Additional Family Medical History / Comment(s): at 64 - "arterial htn" Surgical - Exam Vital Signs Temp Pulse Resp BP 97.9 F 97 16 123/79 11/28/18 16:23 11/28/18 16:23 11/28/18 16:23 11/28/18 16:23 - General well developed, well nourished, no distress - Eyes PERRL - ENT normal pinna - Neck no masses - Respiratory normal expansion - Cardiovascular Rhythm: regular - Abdomen Abdomen: soft, non tender Bariatric Assessment & Plan Plan: Status post sleeve gastrectomy. Patient is doing quite well. Her weight loss is excellent. Patient's GERD is minimal will be observed. She'll follow-up in 4 weeks. Bariatric Checklist Checklist: Plan: Checklist: EGD: 1. Hiatal hernia: 2. H. Pylori: HgbA1c: Vitamin D: Smoking: Current every day smoker Primary care physician referral: Dr. Foy Psychiatry clearance: Cardiology clearance: Sleep study: Diet journal: VTE risk score: VTE risk level: Rehab needs at discharge:
== END | disposition home or self-care (01) ==
LOC: BARWHC3 15:02
PROVIDERS: ATTEND Surgery
DX: Z09 Encounter for follow-up examination after completed treatment for conditions other than malignant neoplasm (principal); E66.01 Morbid (severe) obesity due to excess calories; K21.9 Gastro-esophageal reflux disease without esophagitis; F17.200 Nicotine dependence, unspecified, uncomplicated; E78.5 Hyperlipidemia, unspecified; J30.2 Other seasonal allergic rhinitis; Z98.84 Bariatric surgery status; Z68.38 Body mass index [BMI] 38.0-38.9, adult
CPT/HCPCS: 97804; G0463; 99211

== ENCOUNTER → 2018-12-26 | Outpatient (CLI) | payer MEDICARE, OTHER ==
--- NOTE | 2018-12-26 16:56 | P.HPBAR ---
Bariatric H&P - History & Physicial H&P Date: 12/26/18 History & Physicial: Visit/CC: Patient initial contact: Initial weight: 131.088 kg Initial weight in pounds: Height: Initial BMI: Last weight: Current weight: Current weight in pounds: Current BMI: [place] body weight (based on NIH guidelines): Excess body weight loss: The patient is a 48 year-old F who presents for Bariatric Assessment. Patient presents today for sleeve gastrectomy follow-up. She has lost 10 pounds since her last visit. She's had some mild complaints of GERD. Past Medical History Past Medical History: Cancer, Fibromyalgia, Hyperlipidemia, Hypertension, Liver Disease Additional Past Medical History / Comment(s): seasonal allergies, pt states clotting disorder, cervical ca - HPV, slight elevated LFT, chronic pain, chronic fatigue, BLE edema History of Any Multi-Drug Resistant Organisms: None Reported Past Surgical History: Bariatric Surgery, Tubal Ligation Additional Past Surgical History / Comment(s): bunionectomy left, gastric sleeve performed October 2018 (Dr. Lindsey), "severe" sleep apnea Past Anesthesia/Blood Transfusion Reactions: No Reported Reaction Past Psychological History: Depression Smoking Status: Current every day smoker Past Alcohol Use History: None Reported Additional Past Alcohol Use History / Comment(s): HAS SMOKED FOR OVER 35 YRS, ATTEMPTING TO QUIT SMOKING, DOWN TO 1 CIG PER DAY AND USING E-PEN. Past Drug Use History: None Reported - Past Family History Son(s) Family Medical History: Deep Vein Thrombosis (DVT) Additional Family Medical History / Comment(s): elevated clotting disorder Daughter(s) Additional Family Medical History / Comment(s): elevated clotting disorder Mother Family Medical History: Hypertension Additional Family Medical History / Comment(s): at 64 - "arterial htn" Surgical - Exam - General well developed, well nourished, no distress - Eyes PERRL - ENT normal pinna - Neck no masses - Respiratory normal expansion - Cardiovascular Rhythm: regular - Abdomen Abdomen: soft, non tender Bariatric Assessment & Plan Plan: Status post sleeve gastrectomy. Patient's weight loss has been excellent. Her GERD is minimal will be observed. She'll follow-up in one month. Bariatric Checklist Checklist: Plan: Checklist: EGD: 1. Hiatal hernia: 2. H. Pylori: HgbA1c: Vitamin D: Smoking: Current every day smoker Primary care physician referral: Dr. Foy Psychiatry clearance: Cardiology clearance: Sleep study: Diet journal: VTE risk score: VTE risk level: Rehab needs at discharge:
== END | disposition home or self-care (01) ==
LOC: BARWHC3 15:28
PROVIDERS: ATTEND Surgery
DX: Z48.815 Encounter for surgical aftercare following surgery on the digestive system (principal); K21.9 Gastro-esophageal reflux disease without esophagitis; F17.210 Nicotine dependence, cigarettes, uncomplicated; F17.290 Nicotine dependence, other tobacco product, uncomplicated; Z98.84 Bariatric surgery status
CPT/HCPCS: 99211

== ENCOUNTER → 2019-01-20 | Outpatient (CLI) | payer MEDICARE, OTHER ==
--- NOTE | 2019-01-21 07:50 | MR ---
EXAMINATION TYPE: MR tspine/calli wo con DATE OF EXAM: 01/20/2019 COMPARISON: None HISTORY: Mid/Low back pain CONTRAST: Performed utilizing 0 mL intravenous Gadavist gadolinium contrast. TECHNIQUE: Multiplanar, multiecho imaging on a 3.0 Sarah magnet is performed through the thoracic spi ne. Spinal cord maintains normal signal through its visualized course. Vertebral body alignment is normal. Vertebral body heights are preserved. Disc heights are preserved. Incidental note is made of severe right foraminal stenosis at C5-6 level within the [id number]. Disc hydration levels are preserved. T10-11: Facet hypertrophy is present with some mild right posterior lateral thecal sac compression. N o cord contact or spinal canal stenosis is present. T7-T8: There is a central disc bulge with mild anterior thecal sac compression. No spinal canal steno sis present. No cord contact is evident. No spinal canal stenosis is evident. IMPRESSIONS: 1. Small central disc bulge T7-T8 without cord compression or stenosis. EXAMINATION TYPE: MR giuseppe/calli wo con DATE OF EXAM: 01/20/2019 COMPARISON: 12/02/2015 HISTORY: Mid/Low back pain CONTRAST: 0 mL intravenous Gadavist. TECHNIQUE: Multiplanar, multisequence images of the lumbar spine were acquired. FINDINGS: No focal disc herniations or significant disc bulges are evident. Very minimal disc bulge may be pres ent L5-S1 without thecal sac impression. Spinal canal stenosis is not evident. No foraminal stenosis present. Facets appear unremarkable. IMPRESSION: 1. Normal MRI lumbar spine, unchanged from prior study.
== END | disposition home or self-care (01) ==
LOC: RADMRIMAIN 19:43
PROVIDERS: ATTEND Physician Assistant
DX: M51.24 Other intervertebral disc displacement, thoracic region (principal)
CPT/HCPCS: 72146; 72148

== ENCOUNTER → 2019-01-26 | Outpatient (CLI) | payer MEDICARE ==
--- NOTE | 2019-01-26 22:03 | PN ---
PROGRESS NOTE DATE OF SERVICE: 01/26/2019 This patient is a 48-year-old lady who has been followed in Sleep Center for treatment of obstructive sleep apnea-hypopnea syndrome. About 3 months ago the patient had a diagnostic sleep study which showed extremely severe sleep apnea with apnea-hypopnea index 81.7 and severe oxygen desaturation. After that, the patient had CPAP and BiPAP titration and received a BiPAP unit. She started to use it and at the beginning used it every night, but then she developed some problems related to the full-face mask, especially to irritation of the bridge of the nose, and she was not able to use the machine. About 3 months ago the patient had gastric bypass surgery. Since that time she has lost around 60 pounds of her weight. At present, after losing weight, she still snores and still wakes up from sleep. [place] Sleepiness Scale has increased to 12. I checked the patient's BiPAP unit. BiPAP pressure is 14/10 cm of water. For the last 3 months, the patient used it 51/90 nights, but only 8 nights for more than 4 hours, with average usage 1.9 hours per night. Reading from the machine showed a significant leak at 42 L/minute. Apnea-hypopnea index reading from the machine is high at 17.7, although reading from the BiPAP titration showed a significantly lower apnea-hypopnea index, which was in normal range. MEDICATIONS: 1. Lyrica. 2. Flexeril. 3. Belbuca. 4. Fenofibrate. 5. Amlodipine. 6. Metoprolol. 7. Cymbalta. 8. Abilify. 9. as needed. 10.Flonase. 11.Lasix. 12.Losartan. PHYSICAL EXAMINATION: GENERAL: A pleasant patient in no distress. VITAL SIGNS: BP 117/71, HR 104, RR 16, weight 241, temperature 98.1. Oxygen saturation at room air 95%. HEENT: PERRLA, EOMI. Evaluation of oropharynx showed tongue protrudes midline. Extremely low position of soft palate. Mallampati IV. NECK: Supple. No JVD. Thyroid is not palpable. LUNGS: Clear to percussion and to auscultation. Good air exchange. No wheezing or rhonchi. HEART: S1, S2 regular. No murmurs, gallops or rubs. ABDOMEN: Slightly obese. EXTREMITIES: No clubbing or cyanosis. INSPECTOR AND HAND PACKAGER: Awake, alert, and oriented X3. Cranial nerves 2 to 7 intact. There is no fasciculation or atrophy. noted. No focal deficits observed. IMPRESSION: 1. Extremely severe obstructive sleep apnea-hypopnea syndrome by results of sleep study 3 months ago before patient lost weight, with apnea-hypopnea index 81.7. Patient was trying to use the BiPAP, but had some problems related to the mask. 2. Status post gastric bypass surgery. Patient lost 60 pounds. 3. Hypertension. 4. History of fibromyalgia. 5. History of polyarthritis. 6. Hyperlipidemia. 7. Allergies. 8. History of depression. 9. Status post cholecystectomy. 10.Status post tubal ligation. 11.History of polyps on vocal cords. 12.Status post smoking for about 30 pack/years. 13.Bulging disc on the chest level. PLAN: 1. We will fit the patient with a different full-face mask. I would suggest DreamWear, which does not cover the nose from above; it goes to the nose from below. 2. Continue losing weight. 3. Sleep hygiene with regular time in bed for 8 hours. 4. Patient should use BiPAP equipment every night. 5. Precautions related to driving. No driving if feeling any sleepiness. 6. Follow-up visit in 4 weeks. Thank you very much for allowing me to participate in the management of your patient. Sincerely, Dereck James MD, PhD, FAASM Diplomat of [place] [employer] [place] [employer] Blending Tank Helper of [facility] [place] MMODL / IJN: [id number] /
== END ==
LOC: SLEEP 16:36
PROVIDERS: ATTEND Internal Medicine
DX: G47.33 Obstructive sleep apnea (adult) (pediatric) (principal); I10 Essential (primary) hypertension; M79.7 Fibromyalgia; E78.5 Hyperlipidemia, unspecified; F32.9 Major depressive disorder, single episode, unspecified; Z90.49 Acquired absence of other specified parts of digestive tract; Z87.39 Personal history of other diseases of the musculoskeletal system and connective tissue; Z98.84 Bariatric surgery status; Z88.9 Allergy status to unspecified drugs, medicaments and biological substances; Z98.51 Tubal ligation status; Z87.891 Personal history of nicotine dependence; Z87.19 Personal history of other diseases of the digestive system; Z99.89 Dependence on other enabling machines and devices; Z79.899 Other long term (current) drug therapy

== ENCOUNTER → 2019-04-06 | Outpatient (CLI) | payer MEDICARE ==
--- NOTE | 2019-04-06 15:31 | SFUN ---
SLEEP CENTER FOLLOW UP NOTE DATE OF SERVICE: 04/06/2019 A 48-year-old lady who has been followed in the Sleep Center for treatment of obstructive sleep apnea-hypopnea syndrome. Patient has been diagnosed with extremely severe obstructive sleep apnea-hypopnea syndrome in October of 2018. At that time, apnea-hypopnea index was 81.7 with oxygen desaturation to 71.8%. She had titration and was recommended treatment with BiPAP, but for different family problems at that time, patient was not able to use her BiPAP equipment and she lost his BiPAP unit because she was not compliant with treatment at that time. Patient had bariatric surgery and lost 51 pounds since previous sleep study. She continued to snore during the sleep and wakes up from sleep. Her [place] Sleepiness Scale today increased to 14. MEDICATIONS: Lyrica, Flexeril, , fenofibrate, Cymbalta, Abilify, Flonase on a p.r.n. basis. PHYSICAL EXAM: Patient in no distress, BP 102/75, HR 100, RR 16, height 5 and 8, weight 231.6. Body mass index 35.1, temperature 97.2, oxygen saturation at room air 95%. OROPHARYNX: Low position of soft palate, Mallampati 3. ABDOMEN: Obese. NECK: Supple, no JVD. Thyroid is not palpable. LUNGS: Clear to percussion and to auscultation. Good air exchange. No wheezing or rhonchi. HEART: S1, S2 regular. No murmurs, gallops, or rubs. EXTREMITIES: No clubbing or cyanosis. MECHANIC'S ASSISTANT: Awake, alert, and oriented X3. Cranial nerves 2 to 7 intact. There is no fasciculation or atrophy. noted. No focal deficits observed. IMPRESSION: 1. Snoring, awakenings from sleep, history of severe obstructive sleep apnea-hypopnea syndrome. The patient lost 51 pounds since previous sleep study. 2. Obesity, body mass index 35.1. 3. Status post gastric bypass surgery. 4. Hypertension. 5. History of fibromyalgia. 6. History of polyarthritis. 7. Hyperlipidemia. 8. Allergies. 9. History of depression. 10.Status post cholecystectomy. 11.Status post tubal ligation. 12.History of polyps of vocal cord. 13.Bulging disc on the chest level. 14.History of smoking for about 30 pack years. Presently using E cigarettes, trying to quit smoking. PLAN: 1. Polysomnography for evaluation of patient's breathing during the sleep because she lost 51 pounds since previous sleep study. 2. CPAP retitration because patient was not compliant with treatment. 3. Continue losing weight. 4. Sleep hygiene with regular time in bed for at least 7-1/2 - 8 hours. 5. No driving if feeling sleepiness. Thank you very much for allowing me to participate in the management of your patient. Sincerely, Dereck James MD, PhD, FAASM Diplomat of [place] [employer] [employer] Business Management Specialist of [facility] [place] MMODL / IJN: [id number] /
== END ==
LOC: SLEEP 13:51
PROVIDERS: ATTEND Internal Medicine
DX: G47.33 Obstructive sleep apnea (adult) (pediatric) (principal); E66.9 Obesity, unspecified; I10 Essential (primary) hypertension; Z68.35 Body mass index [BMI] 35.0-35.9, adult; Z98.84 Bariatric surgery status; Z88.8 Allergy status to other drugs, medicaments and biological substances; Z87.39 Personal history of other diseases of the musculoskeletal system and connective tissue; Z86.59 Personal history of other mental and behavioral disorders; Z90.49 Acquired absence of other specified parts of digestive tract; Z98.51 Tubal ligation status; Z87.19 Personal history of other diseases of the digestive system; Z87.891 Personal history of nicotine dependence; Z79.899 Other long term (current) drug therapy

== ENCOUNTER 2019-08-22 16:40 | Emergency (ER) | payer MEDICARE, OTHER ==
[2019-08-22 17:00] VITALS: BP 134/90; PULSE 82; RESP 20; TEMP 98.6
[2019-08-22] MEDS ORDERED: traMADol 50 MG STARTER PACK 3 TAB BTL PO STA (18:14)
--- NOTE | 2019-08-22 18:14 | ED ---
ENT HPI - General Chief complaint: Dental/Oral Stated complaint: dental pain Time Seen by Provider: 08/22/19 17:24 Source: patient Mode of arrival: ambulatory Limitations: no limitations - History of Present Illness Initial comments: Patient is a 49-year-old female, with history of fibromyalgia, hypertension, presenting to the emergency Department with complaints of left-sided dental pain for the past week. Patient states she fractured her tooth one week ago and noticed some mild swelling over the past few days. She states she hasn't not been able to get into her dentist. Patient denies any fever, chills, nausea, vomiting. She has no other complaints at this time. Upon arrival to ER, her vitals are stable. - Related Data Home Medications Medication Instructions Recorded Confirmed Cyclobenzaprine [Flexeril] 10 mg PO TID 07/25/15 12/26/18 Pregabalin [Lyrica] 150 mg PO TID 07/25/15 12/26/18 amLODIPine [Norvasc] 5 mg PO QAM 07/25/15 12/26/18 ARIPiprazole [Abilify] 5 mg PO HS 02/28/18 12/26/18 Atomoxetine HCl [Strattera] 80 mg PO QAM 02/28/18 12/26/18 Furosemide [Lasix] 20 mg PO QAM 02/28/18 12/26/18 Loratadine [Claritin] 10 mg PO DAILY 02/28/18 12/26/18 Acyclovir [Zovirax] 800 mg PO DIRECTED PRN 08/30/18 12/26/18 Ergocalciferol (Vitamin D2) 50,000 unit PO FR 09/06/18 12/26/18 [Drisdol] Acetaminophen [Tylenol] 325 mg PO Q6H PRN 10/21/18 12/26/18 Aspirin 325 mg PO QAM 10/21/18 12/26/18 DULoxetine HCL [Cymbalta] 60 mg PO BID 10/21/18 12/26/18 Diclofenac Sodium [Voltaren Gel] 1 applic TOPICAL DAILY PRN 10/21/18 12/26/18 Fluconazole [Diflucan] 150 mg PO QAM 10/21/18 12/26/18 Metoprolol Tartrate 12.5 mg PO BID 10/21/18 12/26/18 Buprenorphine HCl [Belbuca] 450 mcg BC BID 12/26/18 12/26/18 Previous Rx's Medication Instructions Recorded Omeprazole 40 mg PO DAILY #60 capsule. 10/27/18 Sucralfate [Carafate] 1 gm PO BID #60 tab 10/27/18 Penicillin V Potassium [Pen Vee K] 500 mg PO QID 10 Days #40 tablet 08/22/19 Allergies Allergy/AdvReac Type Severity Reaction Status Date / Time shellfish derived [Shellfish] Allergy Anaphylaxis Verified 08/22/19 17:00 latex AdvReac Rash/Hives Verified 08/22/19 17:00 PCN Allergy Rash/Hives Uncoded 08/22/19 17:00 Review of Systems ROS Statement: Those systems with pertinent positive or pertinent negative responses have been documented in the HPI. ROS Other: All systems not noted in ROS Statement are negative. Past Medical History Past Medical History: Cancer, Fibromyalgia, Hyperlipidemia, Hypertension, Liver Disease Additional Past Medical History / Comment(s): seasonal allergies, pt states clotting disorder, cervical ca - HPV, slight elevated LFT, chronic pain, chronic fatigue, BLE edema History of Any Multi-Drug Resistant Organisms: None Reported Past Surgical History: Bariatric Surgery, Tubal Ligation Additional Past Surgical History / Comment(s): bunionectomy left, gastric sleeve performed October 2018 (Dr. Lindsey), "severe" sleep apnea Past Anesthesia/Blood Transfusion Reactions: No Reported Reaction Past Psychological History: Depression Smoking Status: Current every day smoker Past Alcohol Use History: None Reported Past Drug Use History: None Reported - Past Family History Son(s) Family Medical History: Deep Vein Thrombosis (DVT) Additional Family Medical History / Comment(s): elevated clotting disorder Daughter(s) Additional Family Medical History / Comment(s): elevated clotting disorder Mother Family Medical History: Hypertension Additional Family Medical History / Comment(s): at 64 - "arterial htn" General Exam - General Exam Comments Initial Comments: GENERAL: Well-appearing, well-nourished and in no acute distress. HEAD: Atraumatic, normocephalic. EYES: Pupils equal round and reactive to light, extraocular movements intact, sclera anicteric, conjunctiva are normal. ENT: TMs normal, nares patent, oropharynx clear without exudates. Moist mucous membranes. Multiple dental caries noted, fracture of left lower tooth, abscess noted. Mild purulent fluid noted after drainage. Mild left-sided facial swelling, no extension past left jawline or into the neck. NECK: Normal range of motion, supple without lymphadenopathy or JVD. LUNGS: Breath sounds clear to auscultation bilaterally and equal. No wheezes rales or rhonchi. HEART: Regular rate and rhythm without murmurs, rubs or gallops. ABDOMEN: Soft, nontender, normoactive bowel sounds. No guarding, no rebound. No masses appreciated. : Deferred EXTREMITIES: Normal range of motion, no pitting or edema. No clubbing or cyanosis. NEUROLOGICAL: Normal speech, normal gait. PSYCH: Normal mood, normal affect. SKIN: Warm, Dry, normal turgor, no rashes or lesions noted. Limitations: no limitations Course Vital Signs 08/22/19 16:57 Temperature 98.6 F Pulse Rate 82 Respiratory 20 Rate Blood Pressure 134/90 O2 Sat by Pulse 97 Oximetry Medical Decision Making - Medical Decision Making Patient is a 49-year-old female presenting with dental pain for 1 week. Vitals are stable. On exam patient has a fracture of her left lower molar, with mild dental abscess noted. Abscess was drained with an 18-gauge needle producing mild amount of purulent and bloody drainage. Patient will be given Toradol as well as an Ultram started pack. She takes Percocets at home for fibromyalgia. Patient be started on penicillin for dental abscess. She'll follow-up with dentist ELIO. She is stable for discharge at this time and she is in agreement with this plan of care. Return parameters were discussed with the patient she verbalized understanding. Disposition Clinical Impression: Dental abscess, Fracture of tooth, Toothache Disposition: HOME SELF-CARE Condition: Stable Instructions (If sedation given, give patient instructions): Dental Abscess (ED) Additional Instructions: Please return to the Emergency Department if symptoms worsen or any other concerns. Take antibiotic as prescribed. May take Motrin for pain relief and continue with already prescribed Percocets. Follow-up with dentist ELIO. Prescriptions: Penicillin V Potassium [Pen Vee K] 500 mg PO QID 10 Days #40 tablet Is patient prescribed a controlled substance at d/c from ED?: No Referrals: Camilo Foy DO [Primary Care Provider] - 1-2 days
[2019-08-22] MEDS ORDERED: KETOROLAC 60 MG/2 ML VIAL IM STA (18:18)
== END 2019-08-22 18:47 | disposition home or self-care (01) ==
LOC: EC 16:40
DX: K04.7 Periapical abscess without sinus (principal); S02.5XXA Fracture of tooth (traumatic), initial encounter for closed fracture; M79.7 Fibromyalgia; K02.9 Dental caries, unspecified; I10 Essential (primary) hypertension; G89.29 Other chronic pain; F32.9 Major depressive disorder, single episode, unspecified; F17.200 Nicotine dependence, unspecified, uncomplicated; Z88.0 Allergy status to penicillin; Z91.013 Allergy to seafood; Z91.040 Latex allergy status; Z79.82 Long term (current) use of aspirin; Z79.899 Other long term (current) drug therapy; Z85.41 Personal history of malignant neoplasm of cervix uteri; X58.XXXA Exposure to other specified factors, initial encounter
CPT/HCPCS: 99283; 41800; 96372; J1885

== ENCOUNTER 2019-10-31 19:27 | Observation (INO) | payer MEDICARE, OTHER ==
[2019-10-31] MEDS ORDERED: SODIUM CHLORIDE 0.9% 500 ML 500 ML IV STA (19:53)
[2019-10-31] MEDS ORDERED: MORPHINE SULFATE 4 MG/ML SYRINGE IV STA (20:03)
[2019-10-31] MEDS ORDERED: ASPIRIN 81 MG PO STA (20:03)
--- NOTE | 2019-10-31 20:06 | ED ---
General Adult HPI - General Source: patient, RN notes reviewed, old records reviewed Mode of arrival: ambulatory Limitations: no limitations <Alli Callahan - Last Filed: 10/31/19 23:13> <Darya Gueavra - Last Filed: 11/06/19 22:52> - General Chief complaint: Syncope Stated complaint: Syncope, Fall Time Seen by Provider: 10/31/19 19:39 - History of Present Illness Initial comments: 49-year-old female patient past medical history significant for tubal ligation, status post bariatric surgery one year ago presents to ED for evaluation of fall earlier today. Patient reports that she was sitting on the couch at approximately 4 PM when she stood up abruptly she felt very lightheaded she then fell to the floor catching her right ankle underneath her. Patient reports that she did not have a complete loss of consciousness however she felt as if she was close to having this. Denies any trauma to head or neck. Patient reports that his morning and last night she is having chest pain in her left parasternal r egion as well as shortness of breath. Patient reports that this resolved after the morning. She states that she called her primary care provider and they advised her that if it got worse to come the ER this morning. Patient reports that she is not experiencing chest pain or shortness of breath at this time. Chief complaint is right ankle pain. Systemic: Pt denies fatigue, fever/chills, rash. Pt denies weakness, night sweats, weight loss. Neuro: Pt denies headache, visual disturbances, syncope or pre-syncope. HEENT: Pt denies ocular discharge or irritation, otalgia, rhinorrhea, pharyngiti s or notable lymphadenopathy. Cardiopulmonary: Pt denies heart palpitations, dyspnea on exertion. Abdominal/GI: Pt denies abdominal pain, n/v/d. : Pt denies dysuria, burning w/ urination, frequency/urgency. Denies new onset urinary or bowel incontinence. MSK: Pt denies myalgia, loss of strength or function in extremities. Neuro: Pt denies new onset weakness, paresthesias. (Alli Callahan) - Related Data Home Medications Medication Instructions Recorded Confirmed Cyclobenzaprine [Flexeril] 10 mg PO TID 07/25/15 10/31/19 Pregabalin [Lyrica] 150 mg PO TID 07/25/15 10/31/19 ARIPiprazole [Abilify] 5 mg PO HS 02/28/18 10/31/19 Atomoxetine HCl [Strattera] 80 mg PO DAILY 02/28/18 10/31/19 Ergocalciferol (Vitamin D2) 50,000 unit PO WE 09/06/18 10/31/19 [Drisdol] DULoxetine HCL [Cymbalta] 60 mg PO BID 10/21/18 10/31/19 Acetaminophen Tab [Tylenol] 1,000 mg PO TID 10/31/19 10/31/19 Buprenorphine HCl [Belbuca] 900 mcg BC BID 10/31/19 10/31/19 Ferrous Sulfate [Iron (65 MG 325 mg PO DAILY 10/31/19 10/31/19 Elemental)] Fluticasone Nasal [place] [Flonase 2 spr EA NOSTRIL DAILY 10/31/19 10/31/19 Nasal [place]] HYDROcodone/APAP 10-325MG [Gail 1 tab PO DAILY PRN 10/31/19 10/31/19 10-325] Losartan [Cozaar] 50 mg PO DAILY 10/31/19 10/31/19 Multivitamins, Thera [Multivitamin 1 tab PO DAILY 10/31/19 10/31/19 (formulary)] Naloxegol Oxalate [Movantik] 25 mg PO DAILY 10/31/19 10/31/19 Previous Rx's Medication Instructions Recorded Omeprazole 40 mg PO DAILY #60 capsule. 10/27/18 Sucralfate [Carafate] 1 gm PO BID #60 tab 10/27/18 Naproxen [Naprosyn] 250 mg PO TID #21 tab 11/02/19 Allergies Allergy/AdvReac Type Severity Reaction Status Date / Time Penicillins Allergy Rash/Hives Verified 10/31/19 21:47 shellfish derived [Shellfish] Allergy Anaphylaxis Verified 10/31/19 21:47 latex AdvReac Rash/Hives Verified 10/31/19 21:47 Review of Systems ROS Other: All systems not noted in ROS Statement are negative. <Alli Callahan - Last Filed: 10/31/19 23:13> ROS Other: All systems not noted in ROS Statement are negative. <Damer,Darya A - Last Filed: 11/06/19 22:52> ROS Statement: Those systems with pertinent positive or pertinent negative responses have been documented in the HPI. Past Medical History Past Medical History: Cancer, Fibromyalgia, Hyperlipidemia, Hypertension, Liver Disease Additional Past Medical History / Comment(s): seasonal allergies, pt states clotting disorder, cervical ca - HPV, slight elevated LFT, chronic pain, chronic fatigue, BLE edema History of Any Multi-Drug Resistant Organisms: None Reported Past Surgical History: Bariatric Surgery, Tubal Ligation Additional Past Surgical History / Comment(s): bunionectomy left, gastric sleeve performed October 2018 (Dr. Lindsey), "severe" sleep apnea Past Anesthesia/Blood Transfusion Reactions: No Reported Reaction Past Psychological History: Depression Smoking Status: Current every day smoker Past Alcohol Use History: None Reported Past Drug Use History: None Reported - Past Family History Son(s) Family Medical History: Deep Vein Thrombosis (DVT) Additional Family Medical History / Comment(s): elevated clotting disorder Daughter(s) Additional Family Medical History / Comment(s): elevated clotting disorder Mother Family Medical History: Hypertension Additional Family Medical History / Comment(s): at 64 - "arterial htn" <Alli Callahan Desire - Last Filed: 10/31/19 23:13> General Exam Limitations: no limitations <Sathish Callahanothy Desire - Last Filed: 10/31/19 23:13> - General Exam Comments Initial Comments: Constitutional: NAD, AOX3, Pt has pleasant affect. HEENT: NC/AT, trachea midline, neck supple, no lymphadenopathy. Posterior pharynx non erythematous, without exudates. External ears appear normal, without discharge. Mucous membranes moist. Eyes PERRLA, EOM intact. There is no scleral icterus. No pallor noted. Cardiopulmonary: RRR, no murmurs, rubs or gallops, no JVD noted. Lungs CTAB in anterior and posterior reyes. No peripheral edema. Abdominal exam: Abdomen soft and non-distended. Abdomen non-tender to palpation in all 4 quadrants. Bowel sounds active in LLQ. No hepatosplenomegaly. No ecchymosis Neuro: CN II-XII grossly intact. No nuchal rigidity. No raccon eyes, no romero sign, no hemotympanum. No cervical spinal tenderness. MSK: Right lower extremity edema noted at right lateral malleolus. Mild tenderness to palpation. Neurovascularly intact. No other areas of tenderness. No proximal tib-fib tenderness. No posterior calf tenderness bilaterally, homans sign negative bilaterally. Posterior tibialis and radial pulse +2 bilaterally. Sensation intact in upper and lower extremities. Full active ROM in upper and lower extremities, 5/5 stregnth. (Alli Callahan) Course Vital Signs 10/31/19 10/31/19 10/31/19 19:32 20:43 21:15 Temperature 100.2 F H 99.2 F Pulse Rate 84 94 88 Pulse Rate [ Right Supine] Respiratory 18 18 20 Rate Blood Pressure 125/75 109/82 102/65 Blood Pressure [Right Arm Supine] O2 Sat by Pulse 94 L 95 99 Oximetry 10/31/19 10/31/19 10/31/19 22:15 23:04 23:08 Temperature Pulse Rate 91 81 85 Pulse Rate [ Right Supine] Respiratory 20 20 17 Rate Blood Pressure 107/72 104/65 109/71 Blood Pressure [Right Arm Supine] O2 Sat by Pulse 98 99 97 Oximetry 11/01/19 11/01/19 11/01/19 01:21 03:25 07:00 Temperature Pulse Rate 83 70 60 Pulse Rate [ Right Supine] Respiratory 15 15 18 Rate Blood Pressure 100/66 105/67 129/75 Blood Pressure [Right Arm Supine] O2 Sat by Pulse 97 99 96 Oximetry 11/01/19 08:00 Temperature 98.7 F Pulse Rate Pulse Rate [ 81 Right Supine] Respiratory 16 Rate Blood Pressure Blood Pressure 113/84 [Right Arm Supine] O2 Sat by Pulse 96 Oximetry Medical Decision Making - Lab Data Result diagrams: 10/31/19 20:12 10/31/19 20:12 - EKG Data -: EKG Interpreted by Ga (and Dr Guevara ) <Alli Callahan - Last Filed: 10/31/19 23:13> - Lab Data Result diagrams: 10/31/19 20:12 10/31/19 20:12 <Darya Guevara - Last Filed: 11/06/19 22:52> - Medical Decision Making 49-year-old female patient past medical history significant for tubal ligation, status post bariatric surgery one year ago presents to ED for evaluation of fall earlier today. Patient reports that she was sitting on the couch at approximately 4 PM when she stood up abruptly she felt very lightheaded she then fell to the floor catching her right ankle underneath her. Patient reports that she did not have a complete loss of consciousness however she felt as if she was close to having this. Denies any trauma to head or neck. Patient reports that his morning and last night she is having chest pain in her left parasternal region as well as shortness of breath. Patient reports that this resolved after the morning. She states that she called her primary care provider and they advised her that if it got worse to come the ER this morning. Patient reports that she is not experiencing chest pain or shortness of breath at this time. Chief complaint is right ankle pain. Patient VSS, afebrile. Physical exam displayed: Right lower extremity edema noted at right lateral malleolus. Mild tenderness to palpation. Neurovascularly intact. No other areas of tenderness. No proximal tib-fib tenderness. Laboratory investigations were obtained and were nonimpressive. Troponin negative. EKG displayed normal sinus rhythm, cannot rule out anterior infarct, age undetermined. CTA displayed no evidence of acute PE, left basilar linear scarring redemonstrated. Plain film of foot and ankle displayed an acute nindisplayed transverse intra-articular fracure through the lateral malleolus below the ankle mortise. Approximately 3.5 hours after initial evaluation patient began complaining of coccyx pain, plain film was negative. Pt placed in posterior ankle splint. Neurovascularly intact before and after splint placement. Pt will be admitted for serial troponins and cardiology evaluaytion. Pt continues to be pain free. Case disucssed with Dr. Guevara. (Alli Callahan) I was available for consultation in the emergency department. The history and physical exam were done by the midlevel provider. I was consulted for this patients care. I reviewed the case with the midlevel provider and based on their presentation of the patient, I agree with the assessment, medical decision making and plan of care as documented. I spoke with Dr. Hayes who accepted admission for the patient. Chart was dictated using [employer] dictation software. Attempts were made to correct any dictation errors however some typographical errors may persist. Patient was seen during a national state of emergency due to the Covid-19 pandemic. (Darya Guevara) - Lab Data Lab Results 10/31/19 10/31/19 10/31/19 Range/Units 20:05 20:12 20:12 WBC 8.2 (3.8-10.6) k/uL RBC 5.25 (3.80-5.40) m/uL Hgb 15.7 (11.4-16.0) gm/dL Hct 48.0 H (34.0-46.0) % MCV 91.3 (80.0-100.0) fL MCH 29.9 (25.0-35.0) pg MCHC 32.7 (31.0-37.0) g/dL RDW 13.1 (11.5-15.5) % Plt Count 206 (150-450) k/uL Neutrophils % 52 % Lymphocytes % 36 % Monocytes % 5 % Eosinophils % 5 % Basophils % 0 % Neutrophils # 4.3 (1.3-7.7) k/uL Lymphocytes # 3.0 (1.0-4.8) k/uL Monocytes # 0.4 (0-1.0) k/uL Eosinophils # 0.4 (0-0.7) k/uL Basophils # 0.0 (0-0.2) k/uL PT 10.6 (9.0-12.0) sec INR 1.0 (<1.2) APTT 25.4 (22.0-30.0) sec Sodium (137-145) mmol/L Potassium (3.5-5.1) mmol/L Chloride (98-107) mmol/L Carbon Dioxide (22-30) mmol/L Anion Gap mmol/L BUN (7-17) mg/dL Creatinine (0.52-1.04) mg/dL Est GFR (CKD-EPI)AfAm (>60 ml/min/1.73 sqM) Est GFR (CKD-EPI)NonAf (>60 ml/min/1.73 sqM) Glucose (74-99) mg/dL POC Glucose (mg/dL) 114 H (75-99) mg/dL POC Glu Boiler Tube Reamer ID [employer] Calcium (8.4-10.2) mg/dL Magnesium (1.6-2.3) mg/dL Total Bilirubin (0.2-1.3) mg/dL AST (14-36) U/L ALT (4-34) U/L Alkaline Phosphatase (38-126) U/L Troponin I (0.000-0.034) ng/mL Total Protein (6.3-8.2) g/dL Albumin (3.5-5.0) g/dL 10/31/19 10/31/19 Range/Units 20:12 20:12 WBC (3.8-10.6) k/uL RBC (3.80-5.40) m/uL Hgb (11.4-16.0) gm/dL Hct (34.0-46.0) % MCV (80.0-100.0) fL MCH (25.0-35.0) pg MCHC (31.0-37.0) g/dL RDW (11.5-15.5) % Plt Count (150-450) k/uL Neutrophils % % Lymphocytes % % Monocytes % % Eosinophils % % Basophils % % Neutrophils # (1.3-7.7) k/uL Lymphocytes # (1.0-4.8) k/uL Monocytes # (0-1.0) k/uL Eosinophils # (0-0.7) k/uL Basophils # (0-0.2) k/uL PT (9.0-12.0) sec INR (<1.2) APTT (22.0-30.0) sec Sodium 139 (137-145) mmol/L Potassium 3.9 (3.5-5.1) mmol/L Chloride 102 (98-107) mmol/L Carbon Dioxide 24 (22-30) mmol/L Anion Gap 13 mmol/L BUN 21 H (7-17) mg/dL Creatinine 0.88 (0.52-1.04) mg/dL Est GFR (CKD-EPI)AfAm >90 (>60 ml/min/1.73 sqM) Est GFR (CKD-EPI)NonAf 78 (>60 ml/min/1.73 sqM) Glucose 120 H (74-99) mg/dL POC Glucose (mg/dL) (75-99) mg/dL POC Glu Boiler Tube Reamer ID Calcium 9.8 (8.4-10.2) mg/dL Magnesium 2.1 (1.6-2.3) mg/dL Total Bilirubin 0.6 (0.2-1.3) mg/dL AST 35 (14-36) U/L ALT 15 (4-34) U/L Alkaline Phosphatase 85 (38-126) U/L Troponin I <0.012 (0.000-0.034) ng/mL Total Protein 8.1 (6.3-8.2) g/dL Albumin 4.9 (3.5-5.0) g/dL - EKG Data EKG Comments: Ventricular rate 92, LA interval 138, QRS 84, QT/QTc 356/440, Normal sinus rhythm, possible anterior infarct age undetermined, abnormal EKG, no concern for acute ischemia at this time. (Alli Callahan) Disposition Is patient prescribed a controlled substance at d/c from ED?: No <Alli Callahan - Last Filed: 10/31/19 23:13> <Darya Guevara - Last Filed: 11/06/19 22:52> Clinical Impression: Ankle fracture, Chest pain, Pre-syncope Disposition: ADMITTED IP TO THIS HOSP Condition: Stable
[2019-10-31 20:17] LABS: Glucose,Whole Blood 114 mg/dL (75-99)
[2019-10-31 20:31] LABS: Basophils % (A) 0 %; Eosinophils # (A) 0.4 k/uL (0-0.7); Eosinophils % (A) 5 %; HGB 15.7 gm/dL (11.4-16.0); Lymphocytes % (A) 36 %; MCH 29.9 pg (25.0-35.0); MCHC 32.7 g/dL (31.0-37.0); MCV 91.3 fL (80.0-100.0); Mean Platelet Volume 8.9; Monocytes # (A) 0.4 k/uL (0-1.0); Monocytes % (A) 5 %; Neutrophils # (A) 4.3 k/uL (1.3-7.7); Neutrophils % (A) 52 %; Platelet Count 206 k/uL (150-450); RBC 5.25 m/uL (3.80-5.40); RDW 13.1 % (11.5-15.5); WBC 8.2 k/uL (3.8-10.6)
--- NOTE | 2019-10-31 20:31 | XR ---
EXAMINATION TYPE: XR ankle complete RT, XR foot complete RT DATE OF EXAM: 10/31/2019 CLINICAL HISTORY: Injury with pain. TECHNIQUE: Frontal, lateral and oblique images of the right ankle and foot are obtained. COMPARISON: None. FINDINGS: There is moderate soft tissue swelling over the lateral malleolus with linear lucency cons istent with acute nondisplaced intra-articular transverse fracture seen on frontal and oblique images . The posterior medial malleoli are intact. Ankle mortise symmetry is preserved. There is no additional acute fracture or dislocation evident in the right foot. Prominent hallux valg us deformity first metatarsophalangeal joint. Additional valgus positioning distal second through fo urth toes with flexion. Overlying soft tissue is unremarkable. IMPRESSION: There is acute nondisplaced transverse intra-articular fracture through the lateral mall eolus below the ankle mortise. (Initial encounter closed type posttraumatic fracture)
[2019-10-31 20:35] LABS: ALT 15 U/L (4-34); AST 35 U/L (14-36); African American GFR (CKD) >90 (>60 ml/min/1.73 sqM); Albumin 4.9 g/dL (3.5-5.0); Alkaline Phosphatase 85 U/L (38-126); Anion Gap 13 mmol/L; Blood Urea Nitrogen 21 mg/dL (7-17); Calcium 9.8 mg/dL (8.4-10.2); Carbon Dioxide 24 mmol/L (22-30); Chloride 102 mmol/L (98-107); Glucose 120 mg/dL (74-99); Magnesium 2.1 mg/dL (1.6-2.3); Non-African American GFR(CKD) 78 (>60 ml/min/1.73 sqM); Potassium 3.9 mmol/L (3.5-5.1); Sodium 139 mmol/L (137-145); Total Bilirubin 0.6 mg/dL (0.2-1.3); Total Protein 8.1 g/dL (6.3-8.2)
[2019-10-31 20:42] LABS: Partial Thromboplastin Time 25.4 sec (22.0-30.0); Prothrombin Time 10.6 sec (9.0-12.0)
--- NOTE | 2019-10-31 21:29 | CT ---
EXAMINATION TYPE: CT chest angio for PE DATE OF EXAM: 10/31/2019 COMPARISON: CTA chest February 28, 2018 HISTORY: Chest pain, shortness of breath, syncope. CT DLP: 480.6 mGycm. Automated Exposure Control for Dose Reduction was Utilized. CONTRAST: CTA scan of the thorax is performed with IV Contrast, patient injected with 100 mL of Isovue 370, pul monary embolism protocol. MIP Images are created on CT scanner and reviewed. FINDINGS: LUNGS: Mild left basilar linear scarring and/or atelectasis redemonstrated background mild underlying emphysematous change. No new areas of suspicious focal consolidation. No new suspicious masses. The re is no pleural effusion or pneumothorax seen bilaterally. The tracheobronchial tree is patent. MEDIASTINUM: There is satisfactory enhancement of the pulmonary artery and its branches, there is no CT evidence for pulmonary embolism. There are no greater than 1 cm hilar or mediastinal lymph nodes. Stable tiny pericardial effusion is seen. No cardiomegaly. Satisfactory enhancement of the aorta wit hout aneurysm or focal dissection. OTHER: Mild multilevel spurring in the spine. Liver is low density less prominent from prior study partida ggesting improving diffuse fatty infiltration. IMPRESSION: No CT evidence for acute pulmonary embolism. Left basilar linear scarring redemonstrated. No new suspicious acute pulmonary process.
[2019-10-31] MEDS: HYDROcodone/APAP 10-325MG 1 EACH TAB PO PRN (23:03)
--- NOTE | 2019-10-31 23:06 | XR ---
EXAMINATION TYPE: XR sacrum coccyx DATE OF EXAM: 10/31/2019 COMPARISON: NONE HISTORY: Pain in the tailbone after a fall TECHNIQUE: 3 views FINDINGS: The segments have normal alignment. Sacroiliac joints appear normal. I see no fracture. Yvon dder distends smoothly with contrast from previous exam. IMPRESSION: Normal sacrum and coccyx exam. No fracture seen.
[2019-10-31] MEDS ORDERED: NITROGLYCERIN SL TABS 0.4 MG TAB SUBLINGUAL PRN (23:14)
[2019-10-31 23:22] LABS: Appearance,Urine Clear (Clear); Bilirubin,Urine Negative (Negative); Blood,Urine Negative (Negative); Color,Urine Yellow; Glucose,Urine (UA) Negative (Negative); Ketones,Urine Negative (Negative); Leukocyte Esterase,Urine Negative (Negative); Nitrite,Urine Negative (Negative); Protein,Urine Negative (Negative); Urobilinogen,Urine <2.0 mg/dL (<2.0)
[2019-11-01] MEDS: MORPHINE SULFATE 4 MG/ML SYRINGE IV PRN ×3 (01:17→16:27)
[2019-11-01 02:58] LABS: Cholesterol 186 mg/dL (<200); HDL Cholesterol 51 mg/dL (40-60); LDL Cholesterol,Calculated 97 mg/dL (0-99); Triglycerides 192 mg/dL (<150)
[2019-11-01] MEDS: HYDROcodone/APAP 10-325MG 1 EACH TAB PO PRN ×3 (03:18→23:49)
[2019-11-01] MEDS: PANTOPRAZOLE 40 MG TABLET PO SCH (06:58)
[2019-11-01] MEDS: ASPIRIN 325 MG TAB PO SCH (08:50)
[2019-11-01] MEDS: LOSARTAN 50 MG TAB PO SCH (08:50)
[2019-11-01] MEDS: PREGABALIN 75 MG CAP PO SCH ×3 (09:23→22:00)
[2019-11-01] MEDS: CYCLOBENZAPRINE 10 MG TAB PO SCH ×3 (11:03→20:11)
[2019-11-01] MEDS: MULTIVITAMINS, THERA 1 EACH TAB PO SCH (11:03)
[2019-11-01] MEDS: FERROUS SULFATE 325 MG TAB PO SCH (11:03)
[2019-11-01] MEDS: DULoxetine HCL 60 MG CAPSULE.DR PO SCH ×2 (11:04→20:11)
--- NOTE | 2019-11-01 11:33 | CONS ---
CONSULTATION Camilo is a 49-year-old lady who is without history of hypertension, who presented to hospital having had an episode of syncope. 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 She did not have complete loss of consciousness. Did not have any focal neurological deficits. Did not have bladder or bowel incontinence. She has had a similar event several years ago. There is no history of coronary artery disease or congestive heart failure. PAST MEDICAL HISTORY: Significant for hypertension. MEDICATIONS: Include losartan 50 mg daily. She is also on [place], Flonase, Cymbalta, vitamin D, Abilify, Flexeril, Lyrica. Patient is allergic to SHELLFISH, PENICILLIN, and LATEX. FAMILY HISTORY: Negative for premature coronary artery disease. SOCIAL HISTORY: Negative for current smoking, EtOH abuse, or drug abuse. REVIEW OF SYSTEMS: HEENT: Unremarkable. CARDIAC: As described above. RESPIRATORY: As described above. GI: Negative. GENITOURINARY: Negative. Allergy/IMMUNOLOGY: Negative. SKIN: Negative. MUSCULOSKELETAL: Significant for arthritis. PSYCHOSOCIAL: Negative. ENDOCRINE: Negative. CONSTITUTIONAL: Negative. ONCOLOGICAL: Negative. 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 PHYSICAL EXAMINATION: On exam, patient is comfortable at rest. Heart rate is 60 beats per minute. Blood pressure is 130/70, respiratory rate is 18, O2 saturation is 96% on room air. There is no jugular venous distention. Carotid upstroke is normal. There is no bruit. Chest exam revealed good air entry bilaterally. Heart exam reveals first and second heart sounds. No gallop. No murmur. No rub. Abdomen is soft, nontender. Exam of the extremities reveals that the right ankle is in a cast. EKG does not show ischemic changes. Cardiac enzymes have been negative. LDL cholesterol is 97. ASSESSMENT: 1. Near syncope, probably vasovagal in origin. 2. Fall with right ankle fracture. PLAN: I will obtain a 2D echo and if this is unremarkable, when stable she can be discharged home and I will pursue other workup as outpatient. The patient was advised not to get up suddenly, increase her fluids and salt intake. If necessary, I will start her on Florinef in the outpatient setting. MMODL / IJN: [id number] /
--- NOTE | 2019-11-01 11:42 | ECHOF ---
Referral Reason: MEASUREMENTS -------- HEIGHT: 172.7 cm WEIGHT: 92.5 kg BP: 129/75 RVIDd: 3.6 cm (< 3.3) IVSd: 1.1 cm (0.6 - 1.1) LVIDd: 4.2 cm (3.9 - 5.3) LVPWd: 1.1 cm (0.6 - 1.1) IVSs: 1.8 cm LVIDs: 1.9 cm LVPWs: 1.7 cm Ao Diam: 3.0 cm (2.0 - 3.7) AV Cusp: 2.1 cm (1.5 - 2.6) LA Diam: 2.5 cm (2.7 - 3.8) MV EXCURSION: 15.618 mm (> 18.000) MV EF SLOPE: 70 mm/s (70 - 150) EPSS: 0.5 cm MV E Oje: 0.65 m/s MV DecT: 177 ms MV A Joe: 0.68 m/s MV E/A Ratio: 0.97 RAP: 5.00 mmHg RVSP: 12.51 mmHg FINDINGS -------- Sinus rhythm. This was a technically difficult study with suboptimal views. The left ventricular size is normal. Left ventricular wall thickness is normal. Overall left vent ricular systolic function is normal with, an EF between 55 - 60 %. The right ventricle is mildly enlarged. The left atrial size is normal. The right atrial size is normal. Lumason used The aortic valve is trileaflet and appears structurally normal. The mitral valve is normal. There is trace mitral regurgitation. The tricuspid valve appears structurally normal. Trace tricuspid regurgitation present. Right huy tricular systolic pressure is normal at < 35 mmHg. There is no pulmonic regurgitation present. The aortic root size is normal. IVC Not well visulized. There is no pericardial effusion. CONCLUSIONS -------- 1. Sinus rhythm. 2. This was a technically difficult study with suboptimal views. 3. The left ventricular size is normal. 4. Left ventricular wall thickness is normal. 5. Overall left ventricular systolic function is normal with, an EF between 55 - 60 %. 6. The right ventricle is mildly enlarged. 7. The left atrial size is normal. 8. The right atrial size is normal. 9. Lumason used 10. The aortic valve is trileaflet and appears structurally normal. 11. The mitral valve is normal. 12. There is trace mitral regurgitation. 13. The tricuspid valve appears structurally normal. 14. Trace tricuspid regurgitation present. 15. Right ventricular systolic pressure is normal at < 35 mmHg. 16. There is no pulmonic regurgitation present. 17. The aortic root size is normal. 18. IVC Not well visulized. 19. There is no pericardial effusion. [employer] SALES ENGINEER: Natasha Monzon RDCS
--- NOTE | 2019-11-01 13:11 | P.CNOR ---
History of Present Illness - [facility] Consult date: 11/01/19 History of present illness: This patient is a 49-year-old female with past medical history of fibromyalgia, hyperlipidemia that presented to [facility] ER Last night after a fall at home. The patient states that she stood up from a sitting position and immediately felt very lightheaded, she states she lost control of her body and fell to the ground. She states she twisted her right ankle when she fell. She expect immediate pain and swelling in the right ankle, she was unable to bear weight secondary to the pain. The patient presented to clear the emergency department for evaluation. X-rays of the right ankle in the emergency department revealed a nondisplaced distal fibula fracture. The patient was placed into a posterior splint and was admitted under the care of internal medicine with consult placed to orthopedics in regards to her right ankle fracture. At the time of my exam, the patient is complaining of isolated right ankle pain. She denies pain in the right hip, right thigh, right knee. She denies pain in her left lower extremity, or bilateral upper extremities. Patient states she has a strong family history of a hypercoagulable state, although she is unsure of further details. She has never been tested herself. She states she is not currently taking any kind of anti-coagulation. Patient denies calf pain. She denies back pain. Patient denies chest pain, shortness of breath, nausea, vomiting. Vital signs stable. Past Medical History Past Medical History: Cancer, Fibromyalgia, Hyperlipidemia, Hypertension, Liver Disease Additional Past Medical History / Comment(s): seasonal allergies, pt states clotting disorder, cervical ca - HPV, slight elevated LFT, chronic pain, chronic fatigue, BLE edema History of Any Multi-Drug Resistant Organisms: None Reported Past Surgical History: Bariatric Surgery, Tubal Ligation Additional Past Surgical History / Comment(s): bunionectomy left, gastric sleeve performed October 2018 (Dr. Lindsey), "severe" sleep apnea Past Anesthesia/Blood Transfusion Reactions: No Reported Reaction Smoking Status: Current every day smoker - Past Family History Son(s) Family Medical History: Deep Vein Thrombosis (DVT) Additional Family Medical History / Comment(s): elevated clotting disorder Daughter(s) Additional Family Medical History / Comment(s): elevated clotting disorder Mother Family Medical History: Hypertension Additional Family Medical History / Comment(s): at 64 - "arterial htn" Medications and Allergies Home Medications Medication Instructions Recorded Confirmed Type Cyclobenzaprine [Flexeril] 10 mg PO TID 07/25/15 10/31/19 History Pregabalin [Lyrica] 150 mg PO TID 07/25/15 10/31/19 History ARIPiprazole [Abilify] 5 mg PO HS 02/28/18 10/31/19 History Atomoxetine HCl [Strattera] 80 mg PO DAILY 02/28/18 10/31/19 History Loratadine [Claritin] 10 mg PO DAILY 02/28/18 10/31/19 History Ergocalciferol (Vitamin D2) 50,000 unit PO WE 09/06/18 10/31/19 History [Drisdol] DULoxetine HCL [Cymbalta] 60 mg PO BID 10/21/18 10/31/19 History Omeprazole 40 mg PO DAILY #60 capsule.dr 10/27/18 10/31/19 Rx Sucralfate [Carafate] 1 gm PO BID #60 tab 10/27/18 10/31/19 Rx Acetaminophen Tab [Tylenol Tab] 1,000 mg PO TID 10/31/19 10/31/19 History Buprenorphine HCl [Belbuca] 900 mcg BC BID 10/31/19 10/31/19 History Ferrous Sulfate [Feosol] 325 mg PO DAILY 10/31/19 10/31/19 History Fluticasone Nasal [place] [Flonase 2 spr EA NOSTRIL DAILY 10/31/19 10/31/19 History Nasal [place]] HYDROcodone/APAP 10-325MG [[place] 1 tab PO DAILY PRN 10/31/19 10/31/19 History 10-325] Losartan [Cozaar] 50 mg PO DAILY 10/31/19 10/31/19 History Multivitamins, Thera [Multivitamin 1 tab PO DAILY 10/31/19 10/31/19 History (formulary)] Naloxegol Oxalate [Movantik] 25 mg PO DAILY 10/31/19 10/31/19 History Allergies Allergy/AdvReac Type Severity Reaction Status Date / Time Penicillins Allergy Rash/Hives Verified 10/31/19 21:47 shellfish derived [Shellfish] Allergy Anaphylaxis Verified 10/31/19 21:47 latex AdvReac Rash/Hives Verified 10/31/19 21:47 Physical Examination On examination, the patient is lying in bed in no apparent distress. She is alert and oriented 3. Her head appears normocephalic and atraumatic. Her breathing appears nonlabored. On inspection of the bilateral upper extremities, there are no deformities or signs of trauma. On inspection of the left lower extremity, there are no deformities or signs of trauma. On inspection of the right lower extremity there is a posterior splint in place, splint is removed and reveals diffuse swelling of the ankle with ecchymosis over the lateral ankle. There is a very superficial abrasion to the posterior ankle. Moderate tenderness to palpation of the distal fibula. Mild pain over proximal fibula. Nontender over medial malleolus, calcaneus, dorsal or plantar foot. Moderate pain with passive range of motion of the ankle. No pain with PROM of the right hip, knee. Achilles tendon intact. Dorsalis pedis pulse +2. Motor and sensory function appear to be intact of the right lower extremity. Right calf soft and nontender to palpation. Results Right ankle x-ray 10/31/2019: Nondisplaced distal fibula fracture. Stable ankle mortise. Right foot x-ray 10/31/2019: No acute fractures or dislocations. - Labs Labs: Abnormal Lab Results - Last 24 Hours (Table) 10/31/19 10/31/19 10/31/19 Range/Units 20:05 20:12 20:12 Hct 48.0 H (34.0-46.0) % BUN 21 H (7-17) mg/dL Glucose 120 H (74-99) mg/dL POC Glucose (mg/dL) 114 H (75-99) mg/dL Triglycerides (<150) mg/dL Ur Specific [place] (1.001-1.035) 10/31/19 11/01/19 Range/Units 23:10 02:29 Hct (34.0-46.0) % BUN (7-17) mg/dL Glucose (74-99) mg/dL POC Glucose (mg/dL) (75-99) mg/dL Triglycerides 192 H (<150) mg/dL Ur Specific [place] 1.040 H (1.001-1.035) H & H 10/31/19 Range/Units 20:12 Hgb 15.7 (11.4-16.0) gm/dL Hct 48.0 H (34.0-46.0) % Coagulation 10/31/19 Range/Units 20:12 INR 1.0 (<1.2) Result Diagrams: 10/31/19 20:12 10/31/19 20:12 Assessment and Plan Assessment: Right nondisplaced distal fibula fracture Plan: - The clinical and imaging findings were discussed with the patient. The patient was discussed with Dr. Leggett. No surgical intervention is planned at this time. - Recommended a tall CAM boot for the right ankle. The patient may bear weight to tolerance on the right ankle while wearing the boot. She should use crutches for ambulation as needed. - Ice and elevation of the right ankle for swelling and pain control. - Pain management per admitting team. - Due to patient's very strong family history of a hypercoagulable state, we would recommended DVT prophylaxis, as the patient's right ankle while be immobilized for about 6 weeks. We will defer DVT prophylaxis choice to the internal medicine team. - Patient may follow-up in the office in one week for repeat x-rays of the right ankle.
--- NOTE | 2019-11-01 13:43 | XR ---
EXAMINATION TYPE: XR knee complete RT DATE OF EXAM: 11/01/2019 CLINICAL HISTORY: Pain after fall injury. TECHNIQUE: Three views of the right knee are obtained. COMPARISON: None. FINDINGS: There is no acute fracture/dislocation evident in the right knee. The tri-compartment nabil nt spaces appear within normal limits. Overlying clothing material distal femoral level incidentally noted. IMPRESSION: There is no acute fracture or dislocation in the right knee.
[2019-11-01] MEDS: Naloxegol Oxalate [Movantik] 25 MG PO SCH (13:46)
[2019-11-01] MEDS: ACETAMINOPHEN TAB 500 MG TAB PO SCH ×2 (16:27→20:12)
--- NOTE | 2019-11-01 16:39 | P.HPIM ---
History of Present Illness H&P Date: 11/01/19 Chief Complaint: Nearly Past out History of presenting complaint: This is a pleasant 49-year-old patient of Dr. Foy. Chronic stable medical conditions include fibromyalgia, hypertension, hyperlipidemia, seasonal ALLERGIES, clotting disorder type unknown chronic fatigue, bilateral lower extremity edema. Patient has sleeve gastrectomy done in October 2018 and has lost close to 100 pounds. Patient was laying in bed and got up and took 3 or 4 steps felt like Jell-O and nearly passed out. No rash. Cautioned as. Right ankle got caught and started hurting severely. Earlier in the day she had chest tightness on and off. Across the chest. Also having some perspiration which is unremarkable for quite some time. Presented for the same. Patient does smoke vapor cigarettes. Denies any cough no fever and chills Review of systems: GEN.: Tired EYES: None HEENT: None NECK: None RESPIRATORY: As above CARDIOVASCULAR: As above GASTROINTESTINAL: None GENITOURINARY: None MUSCULOSKELETAL: Chronic low back pain and joint pains LYMPHATICS: None HEMATOLOGICAL: None PSYCHIATRY: None NEUROLOGICAL: Denied any seizure activity or incontinence or tongue biting Past medical history to include: 5 lavage, hyperlipidemia, hypertension, liver disease, seasonal ALLERGIES, cl otting disorder, cervical cancer with HPV, chronic pain, chronic fatigue, some lower extremity edema, sleeve gastrectomy Social history: Patient smoked for close to 35 years stopped about a year ago. Lives alone. Is on disability. Does vaping Physical examination: VITAL SIGNS: 100.2, 84, 18, 125/75, 94% on room air GENERAL: BMI 31, laying in bed, awake. EYES: Pupils equal. Conjunctiva normal. HEENT: External appearance of nose and ears normal, oral cavity grossly normal. NECK: JVD not raised; masses not palpable. HEART: First and second heart sounds are normal; no edema. LUNGS: Respiratory rate normal; fair entry. ABDOMEN: Soft, nontender, liver spleen not palpable, no masses palpable. PSYCH: Alert and oriented x3; mood and affect normal. MUSCULOSKELETAL: Right foot in a dressing with [place] wrap NEUROLOGICAL: Cranial nerves grossly intact; no facial asymmetry, power and sensation grossly intact. LYMPHATICS: No lymph nodes palpable in the axilla and neck .INVESTIGATIONS, reviewed in the clinical context: White count 8.2 hemoglobin 15.7 platelets is 206 potassium 3.9 crit 0.88 Troponin I less than 0.0123 negative LDL 97 COVID 19-PCR-not detected Right ankle x-ray-acute nondisplaced transverse intra-articular fracture through the lateral malleolus below the ankle mortise EKG tracing personally reviewed by me-shows some poor R-wave progression in anterior leads Chest CTA-negative for PE, sacral and coccygeal [id number] for fracture 2-D echocardiogram-EF 55-60% Assessment: -This is a patient for the presented with is having chest pressure tightness perspiration. And then patient nearly passed out. This could be unstable angina with or without any underlying arrhythmia. Troponins have been negative. -Chronic fibromyalgia -Essential hypertension -Hyperlipidemia -Obesity BMI 31 with a prior history of sleeve gastrectomy patient lost close to 100 pounds -Right ankle fracture continue with the [place] wrap Plan: Serial cardiac enzymes and place. 2-D echocardiogram was done. Cartilage was consulted. Patient seen by orthopedics Dr. Leggett. At this point they'll be using a cam boot for the right ankle. No surgical intervention. Patient may w eight-bear as tolerated. And use crutches. Cardiology was consulted. Past Medical History Past Medical History: Cancer, Fibromyalgia, Hyperlipidemia, Hypertension, Liver Disease Additional Past Medical History / Comment(s): seasonal allergies, pt states clotting disorder, cervical ca - HPV, slight elevated LFT, chronic pain, chronic fatigue, BLE edema History of Any Multi-Drug Resistant Organisms: None Reported Past Surgical History: Bariatric Surgery, Tubal Ligation Additional Past Surgical History / Comment(s): bunionectomy left, gastric sleeve performed October 2018 (Dr. Lindsey), "severe" sleep apnea Past Anesthesia/Blood Transfusion Reactions: No Reported Reaction Smoking Status: Current every day smoker - Past Family History Son(s) Family Medical History: Deep Vein Thrombosis (DVT) Additional Family Medical History / Comment(s): elevated clotting disorder Daughter(s) Additional Family Medical History / Comment(s): elevated clotting disorder Mother Family Medical History: Hypertension Additional Family Medical History / Comment(s): at 64 - "arterial htn" Medications and Allergies Home Medications Medication Instructions Recorded Confirmed Type Cyclobenzaprine [Flexeril] 10 mg PO TID 07/25/15 10/31/19 History Pregabalin [Lyrica] 150 mg PO TID 07/25/15 10/31/19 History ARIPiprazole [Abilify] 5 mg PO HS 02/28/18 10/31/19 History Atomoxetine HCl [Strattera] 80 mg PO DAILY 02/28/18 10/31/19 History Loratadine [Claritin] 10 mg PO DAILY 02/28/18 10/31/19 History Ergocalciferol (Vitamin D2) 50,000 unit PO WE 09/06/18 10/31/19 History [Drisdol] DULoxetine HCL [Cymbalta] 60 mg PO BID 10/21/18 10/31/19 History Omeprazole 40 mg PO DAILY #60 capsule.dr 10/27/18 10/31/19 Rx Sucralfate [Carafate] 1 gm PO BID #60 tab 10/27/18 10/31/19 Rx Acetaminophen Tab [Tylenol Tab] 1,000 mg PO TID 10/31/19 10/31/19 History Buprenorphine HCl [Belbuca] 900 mcg BC BID 10/31/19 10/31/19 History Ferrous Sulfate [Feosol] 325 mg PO DAILY 10/31/19 10/31/19 History Fluticasone Nasal [place] [Flonase 2 spr EA NOSTRIL DAILY 10/31/19 10/31/19 History Nasal [place]] HYDROcodone/APAP 10-325MG [[place] 1 tab PO DAILY PRN 10/31/19 10/31/19 History 10-325] Losartan [Cozaar] 50 mg PO DAILY 10/31/19 10/31/19 History Multivitamins, Thera [Multivitamin 1 tab PO DAILY 10/31/19 10/31/19 History (formulary)] Naloxegol Oxalate [Movantik] 25 mg PO DAILY 10/31/19 10/31/19 History Allergies Allergy/AdvReac Type Severity Reaction Status Date / Time Penicillins Allergy Rash/Hives Verified 10/31/19 21:47 shellfish derived [Shellfish] Allergy Anaphylaxis Verified 10/31/19 21:47 latex AdvReac Rash/Hives Verified 10/31/19 21:47 Physical Exam Vitals: Vital Signs Temp Pulse Pulse Resp BP BP Pulse Ox 11/01/19 16:00 97.7 F 83 16 110/66 94 L 11/01/19 12:08 98.5 F 72 16 106/70 94 L 11/01/19 11:54 98.5 F 72 16 106/70 94 L 11/01/19 08:00 98.7 F 81 16 113/84 96 11/01/19 07:00 60 18 129/75 96 11/01/19 03:25 70 15 105/67 99 11/01/19 01:21 83 15 100/66 97 10/31/19 23:08 85 17 109/71 97 10/31/19 23:04 81 20 104/65 99 10/31/19 22:15 91 20 107/72 98 10/31/19 21:15 99.2 F 88 20 102/65 99 10/31/19 20:43 94 18 109/82 95 10/31/19 19:32 100.2 F H 84 18 125/75 94 L Intake and Output 11/01/19 11/01/19 11/01/19 06:59 14:59 22:59 Intake Total 340 Balance 340 Intake: Oral 340 Other: # Voids 1 Weight 92.624 kg Results CBC & Chem 7: 10/31/19 20:12 10/31/19 20:12 Labs: Abnormal Lab Results - Last 24 Hours (Table) 10/31/19 10/31/19 10/31/19 Range/Units 20:05 20:12 20:12 Hct 48.0 H (34.0-46.0) % BUN 21 H (7-17) mg/dL Glucose 120 H (74-99) mg/dL POC Glucose (mg/dL) 114 H (75-99) mg/dL Triglycerides (<150) mg/dL Ur Specific [place] (1.001-1.035) 10/31/19 11/01/19 Range/Units 23:10 02:29 Hct (34.0-46.0) % BUN (7-17) mg/dL Glucose (74-99) mg/dL POC Glucose (mg/dL) (75-99) mg/dL Triglycerides 192 H (<150) mg/dL Ur Specific [place] 1.040 H (1.001-1.035) Thrombosis Risk Factor Assmnt - Choose All That Apply Each Factor Represents 1 point: Age 41-60 years Other Risk Factors: No Other congenital or acquired thrombophilia - If yes, enter type in comment: No Thrombosis Risk Factor Assessment Total Risk Factor Score: 1 Thrombosis Risk Factor Assessment Level: Low Risk
[2019-11-01] MEDS ORDERED: NAPROXEN 250 MG TAB PO STA (16:40)
[2019-11-01] MEDS: NAPROXEN 250 MG TAB PO SCH (20:11)
[2019-11-01] MEDS ORDERED: ARIPiprazole 5 MG TAB PO SCH (21:00)
[2019-11-02] MEDS: MORPHINE SULFATE 4 MG/ML SYRINGE IV PRN ×2 (05:04→13:07)
[2019-11-02] MEDS: PANTOPRAZOLE 40 MG TABLET PO SCH (06:32)
[2019-11-02] MEDS: ACETAMINOPHEN TAB 500 MG TAB PO SCH ×2 (08:27→15:29)
[2019-11-02] MEDS: PREGABALIN 75 MG CAP PO SCH ×2 (08:27→15:28)
[2019-11-02] MEDS: NAPROXEN 250 MG TAB PO SCH ×2 (08:28→15:28)
[2019-11-02] MEDS: MULTIVITAMINS, THERA 1 EACH TAB PO SCH (08:28)
[2019-11-02] MEDS: DULoxetine HCL 60 MG CAPSULE.DR PO SCH (08:28)
[2019-11-02] MEDS: ASPIRIN 325 MG TAB PO SCH (08:28)
[2019-11-02] MEDS: CYCLOBENZAPRINE 10 MG TAB PO SCH ×2 (08:28→15:29)
[2019-11-02] MEDS: LOSARTAN 50 MG TAB PO SCH (08:28)
[2019-11-02] MEDS: FERROUS SULFATE 325 MG TAB PO SCH (08:29)
--- NOTE | 2019-11-02 10:21 | P.PN ---
Subjective Progress Note Date: 11/02/19 This is a 49-year-old female who presented to the hospital after an episode of syncope, she was seen in consultation by Dr. Ayala yesterday. Patient was also noted on admission here to be febrile. She does have a known history of hypertension hyperlipidemia, fibromyalgia, history of asterixis leads surgery in October 2017, nicotine dependence. An echocardiogram with Doppler study was performed which revealed a normal left ventricular systolic function. She was seen and examined this morning, denies any dizziness or lightheadedness, no palpitations, no arrhythmias noted on the monitor. Objective - Vital Signs Vital signs: Vital Signs Temp 98.1 F 11/01/19 23:00 Pulse 85 11/01/19 23:28 Resp 18 11/01/19 23:28 BP 122/78 11/01/19 23:00 Pulse Ox 97 11/01/19 23:00 Intake & Output 11/01/19 11/02/19 11/02/19 18:59 06:59 18:59 Intake Total 460 0 222 Output Total 1350 Balance 460 -1350 222 Weight 92.624 kg Intake: Oral 460 0 222 Output: Urine 1350 Other: # Voids 0 - Exam PHYSICAL EXAMINATION: GENERAL: 49-year-old female in no acute distress at the time of my examination HEENT: Head is atraumatic, normocephalic. Pupils equal, round. Sclera anicteric. Conjunctiva are clear. Mucous membranes of the mouth are moist. Neck is supple. There is no elevated jugular venous pressure.] bruit is heard. HEART EXAMINATION: Heart S1, S2 normal. No murmur or gallop heard. CHEST EXAMINATION: Lungs are clear to auscultation and precussion. No chest wall tenderness is noted on palpation or with deep breathing. ABDOMEN: Soft, nontender. Bowel sounds are heard. No organomegaly noted. EXTREMITIES: 2+ peripheral pulses with no evidence of peripheral edema and no calf tenderness noted. NEUROLOGIC patient is awake, alert and oriented 3 . - Labs CBC & Chem 7: 10/31/19 20:12 10/31/19 20:12 Assessment and Plan Plan: Assessment and plan #1 near syncope, likely vasovagal in origin, no orthostatics documented, no evidence of any tachycardia or bradycardia arrhythmias. Echocardiogram with Doppler study reveals normal left ventricular systolic function. #2 hypertension history #3 hyperlipidemia #4 fibromyalgia #5 fall with right ankle fracture Plan From cardiology's perspective, patient may be discharged once cleared by primary. Dr. Montoya will follow her up in the office 50 further testing as an outpatient. DNP note has been reviewed, I agree with a documented findings and plan of care. Patient was seen and examined.
[2019-11-02 10:52] VITALS: BP 110/66; PULSE 75; RESP 16; TEMP 97.2
[2019-11-02] MEDS: Naloxegol Oxalate [Movantik] 25 MG PO SCH (13:04)
--- NOTE | 2019-11-02 13:24 | P.PN ---
Progress Note - Text Progress Note Date: 11/02/19 Orthopedics: History of present illness: Patient is a pleasant 49-year-old female who is seen and examined bedside for follow up evaluation pressure right distal fibular fracture. She continues to have a splint and Chester wrap intact to the right lower extremity. A prescription for a boot for the right lower extremity has been written, signed, and provided to case management. A prescription for crutches has also been written and signed for the patient. Nursing states they're currently working with case management to obtain the boot for the right lower extremity and crutches. Patient does feel her pain has been better controlled during her admission and does feel she would be ready for discharge home. She has not been able to weight-bear on the right lower extremity. Patient is being seen and examined by medicine at the bedside at the time I entered the room to examine the patient. Medicine states they are planning to discharge patient home today. Patient does have a medical history which includes hyperlipidemia, hypertension, liver disease, fibromyalgia, and cancer. Patient has been seen and examined by cardiology as well. Patient does admit to sleep apnea and is trying to follow- up with the sleep clinic to obtain another CPAP machine. She states she was previously prescribed a CPAP machine but this machine was taken away from her due to her infrequent use of the device. Physical Exam: Patient is awake, alert, and oriented 3 Vital signs stable Good chest excursion with deep inspiration and expiration Right ankle currently has posterior splint and Chester wrap intact; dressing is removed during physical examination and reapplied after physical examination Evidence of some diffuse swelling about the right ankle Some bruising over the right distal fibula Pain with palpation over the right distal fibula No pain with palpation over the right medial malleolus Increased pain with any passive range of motion of the right ankle cyst No signs or symptoms of DVT; no calf pain Patient is able to wiggle toes of the right foot without difficulty Neurovascular intact right lower extremity Pertinent studies: X-ray of the right foot and ankle taken on 10/31/2019: Nondisplaced right distal fibular fracture; stable ankle mortise; no evidence of fracture dislocation within the right foot Assessment: Right distal fibular fracture Right ankle pain Hyperlipidemia Hypertension History of liver disease History of cancer Fibromyalgia Admitted sleep apnea Plan: 1. Patient has evidence of a right distal fibular fracture. We will currently planned to continue with conservative treatment at this time. A prescription has been written, signed, and provided to case management for a tall CAM boot for the right ankle. A prescription has also been written and signed for crutches. Case management is currently working to obtain the boot and crutches. We discussed once the boot is delivered and fitted properly, patient may weight-bear as tolerated on the right lower extremity. She should keep this intact at all times. She should avoid excessive activities with the right lower extremity. 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 We discussed she may elevate the right lower extremity and apply ice over the right ankle for comfort support as needed. Once the boot is delivered and fitted appropriately and patient has obtained crutches, patient will be cleared for discharge from an orthopedic standpoint. She'll plan to follow up with Dr. Leggett at [facility] in approximately 1 week for further evaluation with x-rays of the right ankle to be taken at that time. 2. Patient will continue be seen and examined by medicine for further evaluation who is currently planning to discharge the patient today. Patient may take medications as prescribed by medicine at the time of her discharge. 3. Patient states she'll plan to follow up with the sleep clinic for further evaluation and to obtain a new CPAP machine.
--- NOTE | 2019-11-02 23:34 | P.DS ---
Providers Date of admission: 10/31/19 22:25 Expected date of discharge: 11/02/19 Attending physician: Sánchez Hayes Consults: 10/31/19 23:14 Consult Physician Stat Consulting Provider: Martell Leggett Consult Reason/Comments: ankle fracture Do you want consulting provider notified?: Yes, Notify in am Consult Physician Urgent Consulting Provider: Munir Britt Consult Reason/Comments: chest pain Do you want consulting provider notified?: Yes Primary care physician: Camilo Foy [facility] Course: Chief Complaint: Nearly Past out History of presenting complaint: This is a pleasant 49-year-old patient of Dr. Foy. Chronic stable medical conditions include fibromyalgia, hypertension, hyperlipidemia, seasonal ALLERGIES, clotting disorder type unknown chronic fatigue, bilateral lower extremity edema. Patient has sleeve gastrectomy done in October 2018 and has lost close to 100 pounds. Patient was laying in bed and got up and took 3 or 4 steps felt like Jell-O and nearly passed out. No rash. Cautioned as. Right ankle got caught and started hurting severely. Earlier in the day she had chest tightness on and off. Across the chest. Also having some perspiration which is unremarkable for quite some time. Presented for the same. Patient does smoke vapor cigarettes. Denies any cough no fever and chills Patient was seen by orthopedics. Right ankle was placed in the Chester wrap. For the fracture. No surgical intervention. Boot has been ordered. Pain well controlled by the time of discharge. Seen by cardiology. Cleared for discharge with further outpatient workup. This was discussed with the patient. Questions were answered. Feels rather well today. Cheerful. Claritin could be contributing. Discontinued especially in the presence of other medication she takes. She will follow with her sleep medicine physician to obtain her CPAP. Discussion and discharge planning more than 35 minutes Consultation: Dr. Krystal Ayala from cardiology Dr. Leggett from orthopedics Physical examination: VITAL SIGNS: 97.2, 75, 16, 110/66, 95% room air GENERAL: BMI 31, sitting up, comfortable EYES: Pupils equal. Conjunctiva normal. HEENT: External appearance of nose and ears normal, oral cavity grossly normal. NECK: JVD not raised; masses not palpable. HEART: First and second heart sounds are normal; no edema. LUNGS: Respiratory rate normal; fair entry. ABDOMEN: Soft, nontender, liver spleen not palpable, no masses palpable. PSYCH: Alert and oriented x3; mood and affect normal. MUSCULOSKELETAL: Right foot in a dressing with Chester wrap .INVESTIGATIONS, reviewed in the clinical context: White count 8.2 hemoglobin 15.7 platelets is 206 potassium 3.9 crit 0.88 Troponin I less than 0.0123 negative LDL 97 COVID 19-PCR-not detected Right ankle x-ray-acute nondisplaced transverse intra-articular fracture through the lateral malleolus below the ankle mortise EKG tracing personally reviewed by me-shows some poor R-wave progression in anterior leads Chest CTA-negative for PE, sacral and coccygeal [id number] for fracture 2-D echocardiogram-EF 55-60% Assessment: -Chest tightness with near syncope. Could be a side effect of multiple medications takes including antihistaminic. Claritin has been discontinued.. -Chronic fibromyalgia -Essential hypertension -Hyperlipidemia -Obesity BMI 31 with a prior history of sleeve gastrectomy patient lost close to 100 pounds -Right ankle fracture continue with the Chester wrap Disposition: Home Patient Condition at Discharge: Stable Plan - Discharge Summary Discharge Rx Participant: No New Discharge Prescriptions: New Naproxen [Naprosyn] 250 mg PO TID #21 tab Continue Cyclobenzaprine [Flexeril] 10 mg PO TID Pregabalin [Lyrica] 150 mg PO TID ARIPiprazole [Abilify] 5 mg PO HS Atomoxetine HCl [Strattera] 80 mg PO DAILY Ergocalciferol (Vitamin D2) [Drisdol] 50,000 unit PO WE DULoxetine HCL [Cymbalta] 60 mg PO BID Sucralfate [Carafate] 1 gm PO BID #60 tab Omeprazole 40 mg PO DAILY #60 capsule.dr Acetaminophen Tab [Tylenol] 1,000 mg PO TID Naloxegol Oxalate [Movantik] 25 mg PO DAILY Multivitamins, Thera [Multivitamin (formulary)] 1 tab PO DAILY Losartan [Cozaar] 50 mg PO DAILY HYDROcodone/APAP 10-325MG [[place] 10-325] 1 tab PO DAILY PRN PRN Reason: Pain Fluticasone Nasal [place] [Flonase Nasal [place]] 2 spr EA NOSTRIL DAILY Ferrous Sulfate [Iron (65 MG Elemental)] 325 mg PO DAILY Buprenorphine HCl [Belbuca] 900 mcg BC BID Discontinued Loratadine [Claritin] 10 mg PO DAILY Discharge Medication List Cyclobenzaprine [Flexeril] 10 mg PO TID 07/25/15 [History] Pregabalin [Lyrica] 150 mg PO TID 07/25/15 [History] ARIPiprazole [Abilify] 5 mg PO HS 02/28/18 [History] Atomoxetine HCl [Strattera] 80 mg PO DAILY 02/28/18 [History] Ergocalciferol (Vitamin D2) [Drisdol] 50,000 unit PO WE 09/06/18 [History] DULoxetine HCL [Cymbalta] 60 mg PO BID 10/21/18 [History] Omeprazole 40 mg PO DAILY #60 capsule.dr 10/27/18 [Rx] Sucralfate [Carafate] 1 gm PO BID #60 tab 10/27/18 [Rx] Acetaminophen Tab [Tylenol] 1,000 mg PO TID 10/31/19 [History] Buprenorphine HCl [Belbuca] 900 mcg BC BID 10/31/19 [History] Ferrous Sulfate [Iron (65 MG Elemental)] 325 mg PO DAILY 10/31/19 [History] Fluticasone Nasal [place] [Flonase Nasal [place]] 2 spr EA NOSTRIL DAILY 10/31/19 [History] HYDROcodone/APAP 10-325MG [[place] 10-325] 1 tab PO DAILY PRN 10/31/19 [History] Losartan [Cozaar] 50 mg PO DAILY 10/31/19 [History] Multivitamins, Thera [Multivitamin (formulary)] 1 tab PO DAILY 10/31/19 [History] Naloxegol Oxalate [Movantik] 25 mg PO DAILY 10/31/19 [History] Naproxen [Naprosyn] 250 mg PO TID #21 tab 11/02/19 [Rx] Follow up Appointment(s)/Referral(s): Camilo Foy DO [Primary Care Provider] - 11/07/19 2:45 pm (phone appo intment) Mick Ayala MD [STAFF PHYSICIAN] - 12/14/19 2:45 pm Yosef Corona MD [STAFF PHYSICIAN] - 12/14/19 9:00 am Martell Leggett MD [Medical Doctor] - 11/10/19 1:45 pm Patient Instructions/Handouts: Ankle Fracture (DC), Syncope (DC), Holter Monitor (GEN) Activity/Diet/Wound Care/Special Instructions: weight bearing while wearing the boot only, use crutches as needed Discharge Disposition: HOME SELF-CARE
== END 2019-11-02 16:34 | disposition home or self-care (01) ==
LOC: EC 19:27 → 3SCARD 22:25
PROVIDERS: ADMIT Hospitalist; ATTEND Hospitalist
DX: R07.89 Other chest pain (principal); R55 Syncope and collapse; M79.7 Fibromyalgia; I10 Essential (primary) hypertension; E78.5 Hyperlipidemia, unspecified; Z98.84 Bariatric surgery status; Z68.31 Body mass index [BMI] 31.0-31.9, adult; E66.9 Obesity, unspecified; Z11.59 Encounter for screening for other viral diseases; J30.2 Other seasonal allergic rhinitis; D68.9 Coagulation defect, unspecified; R06.02 Shortness of breath; R53.82 Chronic fatigue, unspecified; R60.0 Localized edema; R61 Generalized hyperhidrosis; F17.200 Nicotine dependence, unspecified, uncomplicated; R27.8 Other lack of coordination; S82.831A Other fracture of upper and lower end of right fibula, initial encounter for closed fracture; G47.30 Sleep apnea, unspecified; K76.9 Liver disease, unspecified; G89.29 Other chronic pain; M54.5 Low back pain; M25.50 Pain in unspecified joint; F32.9 Major depressive disorder, single episode, unspecified; Z85.41 Personal history of malignant neoplasm of cervix uteri; X50.1XXA Overexertion from prolonged static or awkward postures, initial encounter; W18.30XA Fall on same level, unspecified, initial encounter; Y92.009 Unspecified place in unspecified non-institutional (private) residence as the place of occurrence of the external cause; Z79.899 Other long term (current) drug therapy; Z79.891 Long term (current) use of opiate analgesic; Z91.040 Latex allergy status; Z88.0 Allergy status to penicillin; Z91.013 Allergy to seafood; Z83.2 Family history of diseases of the blood and blood-forming organs and certain disorders involving the immune mechanism; Z82.49 Family history of ischemic heart disease and other diseases of the circulatory system
CPT/HCPCS: 96376 ×3; 29515; 96361; 96374; 99285; 36415; 93005; 93270; 97162; 80061; 80053; 83735; 84484 ×2; 85025; 85610; 85730; 81003; 81025; 87635; 72220; 73562; 73610; 73630; 71275; G0378 ×3; C8929; J2270 ×3; Q9950; Q9967; 93306

== ENCOUNTER → 2019-11-27 | Day surgery (SDC) | payer MEDICARE, OTHER ==
[2019-11-23 15:49] VITALS: BMI 28.5
[~2019-11-27] MED LIST changes: -DEXAMETHASONE SOD PHOSPHATE 10 MG/ML 1 ML VIAL IV ONE; -ENOXAPARIN 40 MG/0.4 ML SYRINGE SQ ONE; -LIDOCAINE 1% 20 ML VIAL (10MG/ML) FOR IV START INTRADERMA PRN; -ONDANSETRON 4 MG/2 ML VIAL IVP ONE; -SCOPOLAMINE 1.5MG/72HR PATCH TRANSDERM ONE; +SODIUM CHLORIDE 0.9% 1,000 ML IV SCH; +SODIUM CHLORIDE 0.9% 500 ML 500 ML IV ONE; -ceFAZolin IN SWFI 2 GM/20 ML SYRINGE IVP ONE
[2019-11-27 12:28] VITALS: BP 98/60; RESP 16; TEMP 98.8
--- NOTE | 2019-11-27 16:48 | P.PCN ---
Preoperative Diagnosis: Diagnosis Recurrent presyncope Twelve-lead ECG shows sinus rhythm normal TN narrow QRS normal ST segments isolated Q-wave in lead 3 Tilt table test per protocol Patient was tilted upright at an angle of 70 per protocol Baseline blood pressure 102/50 to use of mercury Baseline heart rate 61 beats a minute She was tilted upright at an angle of 70 There was an immediate drop in her blood pressure to 87/54 mmHg with a 20 point increase in the heart rate 84 beats a minute thereafter her blood pressure remained in the 80s to mid 90s while a heart rate remained mostly in the 90s up to 100 beats a minute She complained of dizziness and nausea. It is the procedure she was laid supine and her blood pressure improved to 122/67 mmHg Impression orthostatic hypotension syndrome
== END ==
LOC: CATHEP 12:08
PROVIDERS: ATTEND Internal Medicine Clinical Cardiac Electrophysiology
DX: I95.1 Orthostatic hypotension (principal); I10 Essential (primary) hypertension; Z88.0 Allergy status to penicillin; Z91.013 Allergy to seafood; Z91.040 Latex allergy status; Z72.0 Tobacco use; Z79.899 Other long term (current) drug therapy; Z82.49 Family history of ischemic heart disease and other diseases of the circulatory system
CPT/HCPCS: 93660

== ENCOUNTER → 2019-12-27 | Outpatient (CLI) | payer MEDICARE, OTHER ==
--- NOTE | 2019-12-27 19:39 | SFUN ---
SLEEP CENTER FOLLOW UP NOTE DATE OF SERVICE: 12/27/2019 This patient is a 49-year-old lady who has been followed in Sleep Center for treatment of obstructive sleep apnea-hypopnea syndrome. The patient had a sleep study in 2019 which showed moderate obstructive sleep apnea-hypopnea syndrome. The patient was recommended to use CPAP equipment, but she did not use it regularly, and the equipment was taken. Since that time the patient has lost a significant amount of weight. By she weighed during the sleep study 282 pounds and today her weight is 192 pounds. This is 90 pounds less now than last year. Patient continues to have problems with her sleep. She wakes up from sleep many times and snores. She feels sleepy during the day. [place] Sleepiness Scale is significantly increased to 14. MEDICATIONS: Lyrica, Flexeril, fenofibrate, Cymbalta, Abilify, Flonase, Percocet. PHYSICAL EXAMINATION: GENERAL: A pleasant patient in no distress. VITAL SIGNS: BP 110/76, HR 80, RR 16, height 5 feet 8-1/2 inches, weight 192 pounds. Body mass index 28.7. Temperature 97.4, oxygen saturation at room air 97%. HEENT: PERRLA, EOMI. Evaluation of oropharynx showed tongue protrudes midline. Low position of soft palate. NECK: Supple. No JVD. Thyroid is not palpable. Neck measures 14 inches in circumference. LUNGS: Clear to percussion and to auscultation. Good air exchange. No wheezing or rhonchi. HEART: S1, S2 regular. No murmurs, gallops or rubs. ABDOMEN: Soft and nontender. Bowel sounds are present. No organomegaly. EXTREMITIES: No clubbing or cyanosis. AIRPLANE CHARTER CLERK: Awake, alert, and oriented X3. Cranial nerves 2 to 7 intact. There is no fasciculation or atrophy. noted. No focal deficits observed. IMPRESSION: 1. History of obstructive sleep apnea documented in 2019; moderate range. Patient has lost about 90 pounds since previous sleep study but continues to experience symptoms of obstructive sleep apnea. 2. Hypertension. 3. Status post gastric sleeve. 4. Fibromyalgia. 5. History of depression. 6. Status post cholecystectomy. 7. History of polyarthritis. 8. History of hyperlipidemia. 9. Allergies. 10.Status post tubal ligation. 11.History of polyps of vocal cord. PLAN: 1. Polysomnography for evaluation of patient's breathing during sleep. 2. Because of patient's significant weight loss, CPAP titration for correction of respiratory abnormalities if the sleep study is positive for obstructive sleep apnea-hypopnea syndrome. 3. Watching weight. 4. Sleep hygiene with regular time in bed for at least 7-1/2 to 8 hours. 5. No driving if feeling any sleepiness. Thank you very much for allowing me to participate in the management of your patient. Sincerely, Dereck James MD, PhD, FAASM Diplomat of [employer] [place] [employer] Processing [employer] [facility] [place] MMODL / GERTRUDISN: [id number] /
== END | disposition home or self-care (01) ==
LOC: SLEEP 13:39
PROVIDERS: ATTEND Internal Medicine
DX: G47.33 Obstructive sleep apnea (adult) (pediatric) (principal); I10 Essential (primary) hypertension; Z99.89 Dependence on other enabling machines and devices; Z98.84 Bariatric surgery status; M79.7 Fibromyalgia; Z90.49 Acquired absence of other specified parts of digestive tract; Z98.51 Tubal ligation status; Z87.39 Personal history of other diseases of the musculoskeletal system and connective tissue

== ENCOUNTER 2021-03-30 06:18 | Emergency (ER) | payer MEDICARE, OTHER ==
[2021-03-30] MEDS ORDERED: SODIUM CHLORIDE 0.9% 1,000 ML IV STA (06:31)
[2021-03-30] MEDS ORDERED: ACETAMINOPHEN TAB 500 MG TAB PO STA (06:31)
[2021-03-30] MEDS ORDERED: IBUPROFEN 600 MG TAB PO STA (06:31)
[2021-03-30] MEDS ORDERED: ONDANSETRON 4 MG/2 ML VIAL IVP STA (06:42)
[2021-03-30 07:05] VITALS: RESP 18
--- NOTE | 2021-03-30 07:32 | XR ---
EXAMINATION TYPE: XR chest 1V portable DATE OF EXAM: 03/30/2021 COMPARISON: 02/28/2018 HISTORY: 50 years Female. STUDY INDICATION GIVEN: fever, cough . TECHNIQUE: AP portable chest radiograph IMPRESSION: Focal opacities are demonstrated in the left lower lobe concerning for pneumonia. No pneumothorax or pleural effusion. Stable right hemidiaphragm eventration. The cardiomediastinal silhouette is within normal limit. No acute osseous abnormality.
[2021-03-30 07:34] VITALS: BP 112/66; PULSE 92; TEMP 101
[2021-03-30] MEDS ORDERED: ALBUTEROL HFA INHALER INHALATION STA (08:08)
[2021-03-30] MEDS ORDERED: DEXAMETHASONE SOD PHOSPHATE 10 MG/ML 1 ML VIAL IV STA (08:08)
[2021-03-30] MEDS ORDERED: SODIUM CHLORIDE 0.9% 500 ML 500 ML IV STA (08:29)
[2021-03-30] MEDS ORDERED: SODIUM CHLORIDE 0.9% 50 ML IVPB ONE (09:00)
[2021-03-30] MEDS ORDERED: CASIRIVIMAB (REGN10933) (EUA) 600 MG, IMDEVIMAB (REGN10987) (EUA) 600 MG in SODIUM CHLO... IVPB ONE (09:00)
--- NOTE | 2021-03-30 09:16 | ED ---
URI HPI - General Chief Complaint: Upper Respiratory Infection Stated Complaint: Fever, Difficulty Breathing Time Seen by Provider: 03/30/21 06:30 Source: patient, RN notes reviewed Mode of arrival: ambulatory Limitations: no limitations - History of Present Illness Initial Comments: Patient is a 50-year-old female, with history of fibromyalgia, hypertension, liver disease, presenting to emergency Department with complaints of cough, congestion and fever. She states she's been having a few the symptoms over the past week, fever just started a couple days ago. States her cough also increases couple days ago. She does have family members at home that are covid positive. She denies any chest pains, some mild shortness of breath. She does have some mild nausea but no vomiting, no diarrhea. No significant abdominal pain just some decreased appetite and mild cramping. She denies history of asthma or COPD, she does admit to vaping. She has not taken anything for her fever yet today. Patient has no further complaints at this time. Upon arrival to the ER, she is febrile to 100.9, tachycardia at 130, 92% on room air. - Related Data Home Medications Medication Instructions Recorded Confirmed Cyclobenzaprine [Flexeril] 10 mg PO TID 07/25/15 11/27/19 Pregabalin [Lyrica] 150 mg PO TID 07/25/15 11/27/19 ARIPiprazole [Abilify] 5 mg PO HS 02/28/18 11/27/19 Atomoxetine HCl [Strattera] 80 mg PO DAILY 02/28/18 11/27/19 Ergocalciferol (Vitamin D2) 50,000 unit PO WE 09/06/18 11/27/19 [Drisdol (50,000 Iu)] DULoxetine HCL [Cymbalta] 60 mg PO BID 10/21/18 11/27/19 Acetaminophen Tab [Tylenol] 1,000 mg PO TID 10/31/19 11/27/19 Buprenorphine HCl [Belbuca] 900 mcg BC BID 10/31/19 11/27/19 Ferrous Sulfate [Iron (65 MG 325 mg PO DAILY 10/31/19 11/27/19 Elemental)] Fluticasone Nasal [place] [Flonase 2 spr EA NOSTRIL DAILY 10/31/19 11/27/19 Nasal [place]] HYDROcodone/APAP 10-325MG [[place] 1 tab PO BID 10/31/19 11/27/19 10-325] Losartan [Cozaar] 50 mg PO DAILY 10/31/19 11/27/19 Multivitamins, Thera [Multivitamin 1 tab PO DAILY 10/31/19 11/27/19 (formulary)] Naloxegol Oxalate [Movantik] 25 mg PO DAILY 10/31/19 11/27/19 Previous Rx's Medication Instructions Recorded Omeprazole 40 mg PO DAILY #60 capsule. 10/27/18 Sucralfate [Carafate] 1 gm PO BID #60 tab 10/27/18 Naproxen [Naprosyn] 250 mg PO TID #21 tab 11/02/19 Albuterol Inhaler [Ventolin Hfa 1 puff INHALATION RT-TID PRN #8 gm 03/30/21 Inhaler] Albuterol Nebulized [Ventolin 2.5 mg INHALATION Q4H PRN #75 ml 03/30/21 Nebulized] Dexamethasone [Decadron] 6 mg PO DAILY 7 Days #7 tablet 03/30/21 Allergies Allergy/AdvReac Type Severity Reaction Status Date / Time Penicillins Allergy Rash/Hives Verified 03/30/21 06:27 shellfish derived [Shellfish] Allergy Anaphylaxis Verified 03/30/21 06:27 latex AdvReac Rash/Hives Verified 03/30/21 06:27 Review of Systems ROS Statement: Those systems with pertinent positive or pertinent negative responses have been documented in the HPI. ROS Other: All systems not noted in ROS Statement are negative. Past Medical History Past Medical History: Blood Disorder, Cancer, Fibromyalgia, Hyperlipidemia, Hypertension, Liver Disease, Sleep Apnea/CPAP/BIPAP Additional Past Medical History / Comment(s): seasonal allergies, pt states clotting disorder, cervical ca - HPV, slight elevated LFT, chronic pain, chronic fatigue, BLE edema, FX RT ANKLE 10/31/19-HAS SPLINT ON ANKLE History of Any Multi-Drug Resistant Organisms: None Reported Past Surgical History: Bariatric Surgery, Tubal Ligation Additional Past Surgical History / Comment(s): bunionectomy left, gastric sleeve performed October 2018 (Dr. Lindsey) Past Anesthesia/Blood Transfusion Reactions: No Reported Reaction Past Psychological History: Depression Smoking Status: Vaper Past Alcohol Use History: None Reported Past Drug Use History: None Reported - Past Family History Son(s) Family Medical History: Blood Disorder, Deep Vein Thrombosis (DVT) Additional Family Medical History / Comment(s): elevated clotting disorder Daughter(s) Family Medical History: Blood Disorder Additional Family Medical History / Comment(s): elevated clotting disorder Mother Family Medical History: Hypertension Additional Family Medical History / Comment(s): at 64 - "arterial htn" General Exam - General Exam Comments Initial Comments: GENERAL: Patient is well-developed and well-nourished. Patient is nontoxic and in no acute distress. HEAD: Atraumatic, normocephalic. EYES: Pupils equal round and reactive to light, extraocular movements intact, sclera anicteric, conjunctiva are normal. Eyelids were unremarkable. ENT: TMs normal, nares patent, oropharynx clear without exudates. Moist mucous membranes. NECK: Normal range of motion, supple without lymphadenopathy or JVD. LUNGS: Unlabored respirations. Breath sounds clear to auscultation bilaterally and equal. No wheezes rales or rhonchi. HEART: Tachycardia rate and rhythm without murmurs, rubs or gallops. ABDOMEN: Soft, nontender, normoactive bowel sounds. No guarding, no rebound. No masses appreciated. : Deferred MUSCULOSKELETAL: Normal extremities with adequate strength and normal range of motion, no pitting or edema. No clubbing or cyanosis. NEUROLOGICAL: Patient is alert and oriented x 3. Normal speech, normal gait. PSYCH: Normal mood, normal affect. SKIN: Warm, Dry, normal turgor, no rashes or lesions noted. Course Vital Signs 03/30/21 03/30/21 03/30/21 06:21 07:01 07:33 Temperature 100.9 F H 101 F H Pulse Rate 130 H 96 92 Respiratory 20 18 18 Rate Blood Pressure 95/66 101/59 112/66 O2 Sat by Pulse 92 L 94 L 93 L Oximetry 03/30/21 08:09 Temperature Pulse Rate Respiratory Rate Blood Pressure O2 Sat by Pulse 89 L Oximetry Medical Decision Making - Medical Decision Making Patient is a 50-year-old female with history of fibromyalgia, hypertension, presenting with viral type symptoms over the last couple days. She's been feeling unwell for the past week. She did arrive febrile, tachycardia. Her household has positive covid cases. Her rapid covid test is positive today. Patient was given ibuprofen, Tylenol and some fluids. Her vital signs did improve. Patient did consent to monoclonal antibodies. Chest x-ray shows concerning for left lower lobe infiltrate. Patient has been around 90% on room air. She does have a nebulizer machine at home, I will give her prescription for albuterol treatments as well as an inhaler and start her on steroids. She is agreeable to this plan of care. She'll continue with Tylenol and Motrin as well. She is stable for discharge. Return parameters were discussed with her and she verbalized understanding. Case discussed with Dr. Johnson. - Lab Data Lab Results 03/30/21 Range/Units 06:56 Coronavirus (PCR) Detected A (Not Detectd) Disposition Clinical Impression: COVID-19 Disposition: HOME SELF-CARE Condition: Stable Instructions (If sedation given, give patient instructions): Coronavirus Disease 2019 (COVID-19) Additional Instructions: Please return to the Emergency Department if symptoms worsen or any other concerns. Please continue with Tylenol and/or Motrin for fever control. Lots of fluids. Use nebulizer treatment as discussed, albuterol inhaler as needed. Take steroids as prescribed. Please follow-up with your primary care. Prescriptions: Dexamethasone [Decadron] 6 mg PO DAILY 7 Days #7 tablet Albuterol Inhaler [Ventolin Hfa Inhaler] 1 puff INHALATION RT-TID PRN #8 gm PRN Reason: Shortness Of Breath Albuterol Nebulized [Ventolin Nebulized] 2.5 mg INHALATION Q4H PRN #75 ml PRN Reason: difficulty in breathing Is patient prescribed a controlled substance at d/c from ED?: No Referrals: Camilo Foy DO [Primary Care Provider] - 1-2 days Time of Disposition: 10:25
== END 2021-03-30 10:44 | disposition home or self-care (01) ==
LOC: EC 06:18
DX: U07.1 COVID-19 (principal); I10 Essential (primary) hypertension; M79.7 Fibromyalgia; F17.290 Nicotine dependence, other tobacco product, uncomplicated; Z88.0 Allergy status to penicillin; Z91.013 Allergy to seafood; Z91.040 Latex allergy status; Z79.899 Other long term (current) drug therapy
CPT/HCPCS: 99285 ×2; 96375 ×2; 96365; 96361 ×2; 94640; 87635; 71045; M0243; J1100; J2405; Q0243

== ENCOUNTER 2021-04-09 18:55 | Emergency (ER) | payer MEDICARE, OTHER ==
[2021-04-09] MEDS ORDERED: SODIUM CHLORIDE 0.9% 1,000 ML IV STA (22:16)
[2021-04-09] MEDS ORDERED: SODIUM CHLORIDE 0.9% 1,000 ML IV ONE (22:16)
--- NOTE | 2021-04-09 22:24 | ED ---
General Adult HPI - General Chief complaint: Recheck/Abnormal Lab/Rx Stated complaint: Covid+/diarrhea/sob Time Seen by Provider: 04/09/21 21:57 Source: patient Mode of arrival: ambulatory Limitations: no limitations - History of Present Illness Initial comments: This patient is a 50-year-old woman who presents to have reevaluation due to continuing covid symptoms. The patient states she was diagnosed with COVID-19 infection on March 30. She states that she had probably started having symptoms up to a week before that. She has continued to have cough, shortness of breath, chest and back pains, headache and diarrhea. The patient did also complete a course of azithromycin and steroids she took the last dose yesterday. -: days(s) Location: chest, back Consistency: constant Improves with: none Worsens with: none Associated Symptoms: chest pain, cough, headaches, other (Diarrhea) - Related Data Home Medications Medication Instructions Recorded Confirmed Pregabalin [Lyrica] 150 mg PO TID 07/25/15 04/09/21 Ergocalciferol (Vitamin D2) 50,000 unit PO WE 09/06/18 04/09/21 [Drisdol (50,000 Iu)] DULoxetine HCL [Cymbalta] 60 mg PO BID 10/21/18 04/09/21 Acetaminophen Tab [Tylenol] 500 mg PO Q6H PRN 10/31/19 04/09/21 Fluticasone Nasal [place] [Flonase 2 spr EA NOSTRIL DAILY 10/31/19 04/09/21 Nasal [place]] HYDROcodone/APAP 10-325MG [[place] 1 tab PO QID PRN 10/31/19 04/09/21 10-325] Naloxegol Oxalate [Movantik] 25 mg PO DAILY 10/31/19 04/09/21 Albuterol Nebulized [Ventolin 2.5 mg INHALATION RT-QID PRN 04/09/21 04/09/21 Nebulized] Amitriptyline HCl 150 mg PO HS 04/09/21 04/09/21 Buprenorphine HCl [Belbuca] 450 mcg BUCCAL BID 04/09/21 04/09/21 Daily-Vivi 1 tab PO DAILY 04/09/21 04/09/21 EPINEPHrine (Auto Inject) [Epipen] 0.3 mg IM ONCE PRN 04/09/21 04/09/21 Fluticasone Propionate [Flovent 1 puff INHALATION RT-BID 04/09/21 04/09/21 Hfa 110 mcg] Lisdexamfetamine Dimesylate 70 mg PO DAILY 04/09/21 04/09/21 [Vyvanse] Melatonin 15 mg PO HS PRN 04/09/21 04/09/21 Naproxen [Naprosyn] 250 mg PO BID-W/MEALS 04/09/21 04/09/21 Nicotine 21Mg/24Hr Patch [Habitrol] 1 patch TRANSDERM DAILY PRN 04/09/2104/09 Sertraline HCl [Zoloft] 25 mg PO HS 04/09/21 04/09/21 Zinc 50 mg PO DAILY 04/09/21 04/09/21 guaiFENesin [Mucinex] 600 mg PO BID 04/09/21 04/09/21 predniSONE 1 dose PO DIRECTED 04/09/21 04/09/21 Previous Rx's Medication Instructions Recorded Omeprazole 40 mg PO DAILY #60 capsule. 10/27/18 Sucralfate [Carafate] 1 gm PO BID #60 tab 10/27/18 Albuterol Inhaler [Ventolin Hfa 1 puff INHALATION RT-TID PRN #8 gm 03/30/21 Inhaler] Allergies Allergy/AdvReac Type Severity Reaction Status Date / Time Penicillins Allergy Rash/Hives Verified 04/09/21 22:47 shellfish derived [Shellfish] Allergy Anaphylaxis Verified 04/09/21 22:47 latex AdvReac Rash/Hives Verified 04/09/21 22:47 Review of Systems ROS Statement: Those systems with pertinent positive or pertinent negative responses have been documented in the HPI. ROS Other: All systems not noted in ROS Statement are negative. Constitutional: Reports: weakness. Denies: fever ENT: Denies: ear pain, congestion Respiratory: Reports: cough. Denies: dyspnea, wheezes, hemoptysis Cardiovascular: Reports: chest pain. Denies: palpitations, orthopnea, edema, syncope Gastrointestinal: Reports: diarrhea. Denies: abdominal pain, nausea, vomiting, melena, hematochezia Genitourinary: Denies: dysuria, frequency, hematuria Musculoskeletal: Denies: back pain Skin: Denies: rash Neurological: Reports: headache. Denies: weakness, numbness, paresthesias Past Medical History Past Medical History: Blood Disorder, Cancer, Fibromyalgia, Hyperlipidemia, Hypertension, Liver Disease, Sleep Apnea/CPAP/BIPAP Additional Past Medical History / Comment(s): seasonal allergies, pt states clotting disorder, cervical ca - HPV, slight elevated LFT, chronic pain, chronic fatigue, BLE edema, FX RT ANKLE 10/31/19-HAS SPLINT ON ANKLE History of Any Multi-Drug Resistant Organisms: None Reported Past Surgical History: Bariatric Surgery, Tubal Ligation Additional Past Surgical History / Comment(s): bunionectomy left, gastric sleeve performed October 2018 (Dr. Lindsey) Past Anesthesia/Blood Transfusion Reactions: No Reported Reaction Past Psychological History: Depression Smoking Status: Vaper Past Alcohol Use History: None Reported Past Drug Use History: None Reported - Past Family History Son(s) Family Medical History: Blood Disorder, Deep Vein Thrombosis (DVT) Additional Family Medical History / Comment(s): elevated clotting disorder Daughter(s) Family Medical History: Blood Disorder Additional Family Medical History / Comment(s): elevated clotting disorder Mother Family Medical History: Hypertension Additional Family Medical History / Comment(s): at 64 - "arterial htn" General Exam Limitations: no limitations General appearance: alert, in no apparent distress Head exam: Present: atraumatic, normocephalic Eye exam: Present: normal appearance. Absent: scleral icterus, conjunctival injection ENT exam: Present: normal oropharynx Neck exam: Present: normal inspection, full ROM. Absent: meningismus Respiratory exam: Present: rales. Absent: respiratory distress, wheezes, rhonchi, stridor, accessory muscle use, decreased breath sounds Cardiovascular Exam: Present: regular rate, normal rhythm, normal heart sounds. Absent: systolic murmur, diastolic murmur, rubs, gallop GI/Abdominal exam: Present: soft. Absent: distended, tenderness, guarding, rebound, rigid, mass Extremities exam: Present: normal inspection, normal capillary refill. Absent: pedal edema, calf tenderness Back exam: Present: normal inspection. Absent: CVA tenderness (R), CVA tenderness (L) Neurological exam: Present: alert Skin exam: Present: warm, dry, intact, normal color. Absent: rash Course Vital Signs 04/09/21 04/09/21 04/10/21 19:27 22:00 02:12 Temperature 99.5 F 97.6 F Pulse Rate 99 63 Respiratory 20 18 20 Rate Blood Pressure 117/87 130/86 O2 Sat by Pulse 95 95 Oximetry Medical Decision Making - Lab Data Result diagrams: 04/09/21 22:42 04/09/21 22:42 Lab Results 04/09/21 04/09/21 04/09/21 Range/Units 22:42 22:42 22:42 WBC 18.9 H (3.8-10.6) k/uL RBC 4.47 (3.80-5.40) m/uL Hgb 13.4 (11.4-16.0) gm/dL Hct 42.4 (34.0-46.0) % MCV 94.8 (80.0-100.0) fL MCH 30.0 (25.0-35.0) pg MCHC 31.6 (31.0-37.0) g/dL RDW 13.2 (11.5-15.5) % Plt Count 229 (150-450) k/uL MPV 8.6 Neutrophils % 79 % Lymphocytes % 15 % Monocytes % 4 % Eosinophils % 0 % Basophils % 0 % Neutrophils # 15.0 H (1.3-7.7) k/uL Lymphocytes # 2.9 (1.0-4.8) k/uL Monocytes # 0.7 (0-1.0) k/uL Eosinophils # 0.1 (0-0.7) k/uL Basophils # 0.0 (0-0.2) k/uL D-Dimer 0.76 H (<0.60) mg/L FEU Sodium 136 L (137-145) mmol/L Potassium 3.8 (3.5-5.1) mmol/L Chloride 106 (98-107) mmol/L Carbon Dioxide 22 (22-30) mmol/L Anion Gap 8 mmol/L BUN 28 H (7-17) mg/dL Creatinine 0.79 (0.52-1.04) mg/dL Est GFR (CKD-EPI)AfAm >90 (>60 ml/min/1.73 sqM) Est GFR (CKD-EPI)NonAf 89 (>60 ml/min/1.73 sqM) Glucose 91 (74-99) mg/dL Calcium 9.1 (8.4-10.2) mg/dL Total Bilirubin 0.3 (0.2-1.3) mg/dL AST 18 (14-36) U/L ALT 22 (4-34) U/L Alkaline Phosphatase 54 (38-126) U/L Total Protein 6.9 (6.3-8.2) g/dL Albumin 4.1 (3.5-5.0) g/dL Disposition Clinical Impression: COVID-19, Dehydration Disposition: HOME SELF-CARE Condition: Good Instructions (If sedation given, give patient instructions): Coronavirus Disease 2019 (COVID-19), Dehydration (ED) Is patient prescribed a controlled substance at d/c from ED?: No Referrals: Camilo Foy DO [Primary Care Provider] - 1-2 days
--- NOTE | 2021-04-09 22:41 | XR ---
EXAMINATION TYPE: XR chest 2V DATE OF EXAM: 04/09/2021 COMPARISON: 03/30/2021 HISTORY: Pain TECHNIQUE: 2 views FINDINGS: Heart and mediastinum are normal. Lungs are clear. Diaphragm is normal. Bony thorax is inta ct. IMPRESSION: Normal chest. No change.
[2021-04-09 22:53] LABS: Basophils % (A) 0 %; Eosinophils # (A) 0.1 k/uL (0-0.7); Eosinophils % (A) 0 %; HCT 42.4 % (34.0-46.0); HGB 13.4 gm/dL (11.4-16.0); Lymphocytes # (A) 2.9 k/uL (1.0-4.8); Lymphocytes % (A) 15 %; MCHC 31.6 g/dL (31.0-37.0); MCV 94.8 fL (80.0-100.0); Mean Platelet Volume 8.6; Monocytes # (A) 0.7 k/uL (0-1.0); Monocytes % (A) 4 %; Neutrophils % (A) 79 %; Platelet Count 229 k/uL (150-450); RBC 4.47 m/uL (3.80-5.40); RDW 13.2 % (11.5-15.5); WBC 18.9 k/uL (3.8-10.6)
[2021-04-09 23:03] LABS: ALT 22 U/L (4-34); AST 18 U/L (14-36); African American GFR (CKD) >90 (>60 ml/min/1.73 sqM); Albumin 4.1 g/dL (3.5-5.0); Alkaline Phosphatase 54 U/L (38-126); Anion Gap 8 mmol/L; Blood Urea Nitrogen 28 mg/dL (7-17); Calcium 9.1 mg/dL (8.4-10.2); Carbon Dioxide 22 mmol/L (22-30); Chloride 106 mmol/L (98-107); Glucose 91 mg/dL (74-99); Non-African American GFR(CKD) 89 (>60 ml/min/1.73 sqM); Potassium 3.8 mmol/L (3.5-5.1); Sodium 136 mmol/L (137-145); Total Bilirubin 0.3 mg/dL (0.2-1.3); Total Protein 6.9 g/dL (6.3-8.2)
--- NOTE | 2021-04-09 23:57 | CT ---
EXAMINATION TYPE: CT chest angio for PE DATE OF EXAM: 04/09/2021 COMPARISON: 10/31/2019 HISTORY: R/O PE CT DLP: 348.00 mGycm Automated exposure control for dose reduction was used. CONTRAST: Performed with IV Contrast, patient injected with 80 mL of Isovue 370. There are 3-D post processed images. The lungs are clear of infiltrate. There is no evidence of a pulmonary mass. There is subsegmental at electasis in the lingula left upper lobe. There is no pleural effusion. There is no pericardial effus ion. There is no mediastinal adenopathy. There are no hilar masses. Thoracic aorta is intact. There is no aneurysm or dissection. There is normal contrast opacification of the pulmonary arteries. There are no filling defects. The thoracic spine is intact. There is no compression fracture. Sternum is intact. IMPRESSION: Negative exam. No evidence of pulmonary embolism. Subsegmental atelectasis in the lingula left upper lobe. No suspicious pulmonary mass.
[2021-04-10] MEDS ORDERED: AZITHROMYCIN 500 MG TAB PO STA (00:26)
[2021-04-10] MEDS ORDERED: KETOROLAC 15 MG/ML 1 ML VIAL IVP STA (00:26)
[2021-04-10] MEDS ORDERED: SODIUM CHLORIDE 0.9% 1,000 ML IV ONE (00:28)
[2021-04-10 02:14] VITALS: BP 130/86; PULSE 63; RESP 20; TEMP 97.6
== END 2021-04-10 02:36 | disposition home or self-care (01) ==
LOC: EC 18:55
DX: U07.1 COVID-19 (principal); E86.0 Dehydration; F17.290 Nicotine dependence, other tobacco product, uncomplicated; I10 Essential (primary) hypertension; Z88.0 Allergy status to penicillin; Z91.013 Allergy to seafood; Z91.040 Latex allergy status; Z79.899 Other long term (current) drug therapy
CPT/HCPCS: 36415; 85379; 80053; 85025; 71046; 71275; 99285; 96360; 96361; Q9967

== ENCOUNTER 2022-06-24 14:46 | Emergency (ER) | payer MEDICARE, OTHER ==
--- NOTE | 2022-06-24 15:29 | ED ---
General Adult HPI - General Source: patient Mode of arrival: ambulatory - History of Present Illness -: week(s) (1) Consistency: constant <Michael Rodarte - Last Filed: 06/24/22 15:25> <Lavon Mckeon - Last Filed: 06/27/22 16:51> - General Chief complaint: Recheck/Abnormal Lab/Rx Stated complaint: Medication Issues Time Seen by Provider: 06/24/22 15:20 - History of Present Illness Initial comments: 52-year-old female presents ambulatory, sent by Dr. Foy for possible serot onin syndrome. Patient was put on Wellbutrin 150 mg twice daily in addition to her Cymbalta on the . Patient is also taking intuniv for ADHD. She did try Ativan 0.25 mg at 1:00 and 2:00 today but continues to feel shaky, palpitations, and feverish. She states that she has fibromyalgia and took herself off all narcotics in September including Lyrica. She denies any alcohol or drug use. She does vape. (Michael Rodarte) - Related Data Home Medications Medication Instructions Recorded Confirmed Pregabalin [Lyrica] 150 mg PO TID 07/25/15 04/09/21 Ergocalciferol (Vitamin D2) 50,000 unit PO WE 09/06/18 04/09/21 [Drisdol (50,000 Iu)] DULoxetine HCL [Cymbalta] 60 mg PO BID 10/21/18 04/09/21 Acetaminophen Tab [Tylenol] 500 mg PO Q6H PRN 10/31/19 04/09/21 Fluticasone Nasal [place] [Flonase 2 spr EA NOSTRIL DAILY 10/31/19 04/09/21 Nasal [place]] HYDROcodone/APAP 10-325MG [[place] 1 tab PO QID PRN 10/31/19 04/09/21 10-325] Naloxegol Oxalate [Movantik] 25 mg PO DAILY 10/31/19 04/09/21 Albuterol Nebulized [Ventolin 2.5 mg INHALATION RT-QID PRN 04/09/21 04/09/21 Nebulized] Amitriptyline HCl [Elavil] 150 mg PO HS 04/09/21 04/09/21 Daily-Vivi 1 tab PO DAILY 04/09/21 04/09/21 EPINEPHrine (Auto Inject) [Epipen] 0.3 mg IM ONCE PRN 04/09/21 04/09/21 Fluticasone Propionate [Flovent 1 puff INHALATION RT-BID 04/09/21 04/09/21 Hfa 110 mcg] Lisdexamfetamine Dimesylate 70 mg PO DAILY 04/09/21 04/09/21 [Vyvanse] Melatonin 15 mg PO HS PRN 04/09/21 04/09/21 Naproxen [Naprosyn] 250 mg PO BID-W/MEALS 04/09/21 04/09/21 Nicotine 21Mg/24Hr Patch [Habitrol] 1 patch TRANSDERM DAILY PRN 04/09/21 Sertraline HCl [Zoloft] 25 mg PO HS 04/09/21 04/09/21 Zinc 50 mg PO DAILY 04/09/21 04/09/21 buprenorphine HCL [Belbuca] 450 mcg BUCCAL BID 04/09/21 04/09/21 guaiFENesin [Mucinex] 600 mg PO BID 04/09/21 04/09/21 predniSONE 1 dose PO DIRECTED 04/09/21 04/09/21 Previous Rx's Medication Instructions Recorded Omeprazole 40 mg PO DAILY #60 capsule. 10/27/18 Sucralfate [Carafate] 1 gm PO BID #60 tab 10/27/18 Albuterol Inhaler [Ventolin Hfa 1 puff INHALATION RT-TID PRN #8 gm 03/30/21 Inhaler] DULoxetine HCL [Cymbalta] 60 mg PO BID #40 cap 06/24/22 Allergies Allergy/AdvReac Type Severity Reaction Status Date / Time Penicillins Allergy Rash/Hives Verified 06/24/22 15:25 shellfish derived [Shellfish] Allergy Anaphylaxis Verified 06/24/22 15:25 latex AdvReac Rash/Hives Verified 06/24/22 15:25 Review of Systems ROS Other: All systems not noted in ROS Statement are negative. <Michael Rodarte - Last Filed: 06/24/22 15:25> ROS Other: All systems not noted in ROS Statement are negative. <Lavon Mckeon - Last Filed: 06/27/22 16:51> ROS Statement: Those systems with pertinent positive or pertinent negative responses have been documented in the HPI. Past Medical History Past Medical History: Blood Disorder, Cancer, Fibromyalgia, Hyperlipidemia, Hypertension, Liver Disease, Sleep Apnea/CPAP/BIPAP Additional Past Medical History / Comment(s): seasonal allergies, pt states clotting disorder, cervical ca - HPV, slight elevated LFT, chronic pain, chronic fatigue, BLE edema, FX RT ANKLE 10/31/19-HAS SPLINT ON ANKLE History of Any Multi-Drug Resistant Organisms: None Reported Past Surgical History: Bariatric Surgery, Tubal Ligation Additional Past Surgical History / Comment(s): bunionectomy left, gastric sleeve performed October 2018 (Dr. Lindsey) Past Anesthesia/Blood Transfusion Reactions: No Reported Reaction Past Psychological History: Depression Smoking Status: Vaper Past Alcohol Use History: None Reported Past Drug Use History: None Reported - Past Family History Son(s) Family Medical History: Blood Disorder, Deep Vein Thrombosis (DVT) Additional Family Medical History / Comment(s): elevated clotting disorder Daughter(s) Family Medical History: Blood Disorder Additional Family Medical History / Comment(s): elevated clotting disorder Mother Family Medical History: Hypertension Additional Family Medical History / Comment(s): at 64 - "arterial htn" <Michael Rodarte - Last Filed: 06/24/22 15:25> General Exam General appearance: alert, anxious Head exam: Present: atraumatic, normocephalic Eye exam: Present: normal appearance, PERRL, EOMI. Absent: scleral icterus, conjunctival injection ENT exam: Present: mucous membranes dry Neck exam: Present: normal inspection, full ROM. Absent: meningismus Respiratory exam: Present: normal lung sounds bilaterally. Absent: respiratory distress, wheezes, rales, rhonchi, stridor Cardiovascular Exam: Present: regular rate, normal rhythm, normal heart sounds. Absent: systolic murmur, diastolic murmur, rubs, gallop GI/Abdominal exam: Present: soft. Absent: distended, tenderness, guarding, rebound, rigid, mass Extremities exam: Present: normal inspection, normal capillary refill. Absent: pedal edema, calf tenderness Back exam: Present: normal inspection. Absent: CVA tenderness (R), CVA tenderness (L) Neurological exam: Present: alert, oriented X3. Absent: motor sensory deficit Psychiatric exam: Present: anxious. Absent: depressed, agitated, homicidal ideation, suicidal ideation Skin exam: Present: warm, dry, intact, normal color. Absent: rash <Lavon Mckeon - Last Filed: 06/27/22 16:51> Course Vital Signs 06/24/22 06/24/22 06/24/22 15:20 17:51 21:21 Temperature 98.6 F 98.8 F Pulse Rate 109 H 72 76 Respiratory 18 18 16 Rate Blood Pressure 132/91 155/101 141/88 O2 Sat by Pulse 100 98 97 Oximetry Medical Decision Making - Lab Data Result diagrams: 06/24/22 18:57 06/24/22 18:57 <Lavon Mckeon - Last Filed: 06/27/22 16:51> - Medical Decision Making Was pt. sent in by a medical professional or institution? @ -[Primary physician Did you speak to anyone other than the patient for history? @ -[No Did you review nursing and triage notes? @ -[agree Were old charts reviewed? @ -[No Differential Diagnosis? @ -[Acute anxiety, medication withdrawal, medication side effect, electrolyte abnormality, endocrine abnormality amongst other conditions EKG interpreted by me (3pts min.)? @ -[See chart X-rays interpreted by me (1pt min.)? @ -[none] CT interpreted by me (1pt min.)? @ -[none] U/S interpreted by me (1pt. min.)? @ -[none] What testing was considered but not performed? (CT, X-rays, U/S, labs)? Why? @ [None What meds were considered but not given? Why? @ -[none] Did you discuss the management of the patient with other professionals? @ -[None Did you reconcile home meds? @ -[none] Was smoking cessation discussed for >3mins.? @ -[none] Was critical care preformed (if so, how long)? @ -[none] Were there social determinants of health that impacted care today? How? (Homelessness, low income, unemployed, alcoholism, drug addiction, transportation, low edu. Level, literacy, decrease access to med. care, senior living, rehab)? @ -[None Was there de-escalation of care discussed even if they declined? (Discuss DNR or withdrawal of care, Hospice)? @ -[No What co-morbidities impacted this encounter? (DM, HTN, Smoking, COPD, CAD, Cancer, CVA, Hep., AIDS, mental health diagnosis, sleep apnea, morbid obesity)? @ -[Mental health diagnosis Was patient admitted / discharged? @ -[Discharged Undiagnosed new problem with uncertain prognosis? @ -[none] Drug Therapy requiring intensive monitoring for toxicity (Heparin, Nitro, Insulin, Cardizem)? @ -[none] Were any procedures done? @ -[none] Diagnosis/symptom? @ -[Adverse medication reaction Acute, or Chronic, or Acute on Chronic? @ -[Acute Uncomplicated (without systemic symptoms) or Complicated (systemic symptoms)? @ -[, Stated Side effects of treatment? @ -[none] Exacerbation, Progression, or Severe Exacerbation] @ -[no] Poses a threat to life or bodily function? @ -[no] (Lavon Mckeon) - Lab Data Lab Results 06/24/22 06/24/22 Range/Units 18:57 18:57 WBC 7.0 (3.8-10.6) k/uL RBC 4.70 (3.80-5.40) m/uL Hgb 14.6 (11.4-16.0) gm/dL Hct 44.0 (34.0-46.0) % MCV 93.5 (80.0-100.0) fL MCH 31.1 (25.0-35.0) pg MCHC 33.2 (31.0-37.0) g/dL RDW 13.1 (11.5-15.5) % Plt Count 201 (150-450) k/uL MPV 9.9 Neutrophils % 56 % Lymphocytes % 36 % Monocytes % 5 % Eosinophils % 2 % Basophils % 1 % Neutrophils # 3.9 (1.3-7.7) k/uL Lymphocytes # 2.5 (1.0-4.8) k/uL Monocytes # 0.3 (0-1.0) k/uL Eosinophils # 0.1 (0-0.7) k/uL Basophils # 0.0 (0-0.2) k/uL Sodium 142 (137-145) mmol/L Potassium 3.9 (3.5-5.1) mmol/L Chloride 110 H (98-107) mmol/L Carbon Dioxide 23 (22-30) mmol/L Anion Gap 9 mmol/L BUN 18 H (7-17) mg/dL Creatinine 0.72 (0.52-1.04) mg/dL Est GFR (CKD-EPI)AfAm >90 (>60 ml/min/1.73 sqM) Est GFR (CKD-EPI)NonAf >90 (>60 ml/min/1.73 sqM) Glucose 84 (74-99) mg/dL Calcium 9.3 (8.4-10.2) mg/dL Total Bilirubin 0.5 (0.2-1.3) mg/dL AST 20 (14-36) U/L ALT 12 (4-34) U/L Alkaline Phosphatase 52 (38-126) U/L Total Protein 6.9 (6.3-8.2) g/dL Albumin 4.4 (3.5-5.0) g/dL Disposition <Michael Rodarte - Last Filed: 06/24/22 15:25> Is patient prescribed a controlled substance at d/c from ED?: No <Lavon Mckeon - Last Filed: 06/27/22 16:51> Clinical Impression: Medication side effect Disposition: HOME SELF-CARE Condition: Good Instructions (If sedation given, give patient instructions): Adverse Drug Reaction (ED) Prescriptions: DULoxetine HCL [Cymbalta] 60 mg PO BID #40 cap Referrals: Camilo Foy DO [Primary Care Provider] - 1-2 days
[2022-06-24 17:52] VITALS: TEMP 98.8
[2022-06-24] MEDS ORDERED: SODIUM CHLORIDE 0.9% 1,000 ML IV ONE (18:50)
[2022-06-24] MEDS ORDERED: LORazepam 2 MG/ML INJ IV STA ×2 (18:50→20:33)
[2022-06-24 19:24] LABS: Basophils % (A) 1 %; Eosinophils # (A) 0.1 k/uL (0-0.7); Eosinophils % (A) 2 %; HGB 14.6 gm/dL (11.4-16.0); Lymphocytes # (A) 2.5 k/uL (1.0-4.8); Lymphocytes % (A) 36 %; MCH 31.1 pg (25.0-35.0); MCHC 33.2 g/dL (31.0-37.0); MCV 93.5 fL (80.0-100.0); Mean Platelet Volume 9.9; Monocytes # (A) 0.3 k/uL (0-1.0); Monocytes % (A) 5 %; Neutrophils # (A) 3.9 k/uL (1.3-7.7); Neutrophils % (A) 56 %; Platelet Count 201 k/uL (150-450); RDW 13.1 % (11.5-15.5)
[2022-06-24 19:35] LABS: ALT 12 U/L (4-34); AST 20 U/L (14-36); African American GFR (CKD) >90 (>60 ml/min/1.73 sqM); Albumin 4.4 g/dL (3.5-5.0); Alkaline Phosphatase 52 U/L (38-126); Anion Gap 9 mmol/L; Blood Urea Nitrogen 18 mg/dL (7-17); Calcium 9.3 mg/dL (8.4-10.2); Carbon Dioxide 23 mmol/L (22-30); Chloride 110 mmol/L (98-107); Glucose 84 mg/dL (74-99); Non-African American GFR(CKD) >90 (>60 ml/min/1.73 sqM); Potassium 3.9 mmol/L (3.5-5.1); Sodium 142 mmol/L (137-145); Total Bilirubin 0.5 mg/dL (0.2-1.3); Total Protein 6.9 g/dL (6.3-8.2)
[2022-06-24 21:22] VITALS: BP 141/88; PULSE 76; RESP 16
== END 2022-06-24 21:55 | disposition home or self-care (01) ==
LOC: EC 14:46
DX: T50.905A Adverse effect of unspecified drugs, medicaments and biological substances, initial encounter (principal); I10 Essential (primary) hypertension; F32.A Depression, unspecified; G47.30 Sleep apnea, unspecified; F17.290 Nicotine dependence, other tobacco product, uncomplicated; F90.9 Attention-deficit hyperactivity disorder, unspecified type; Z88.0 Allergy status to penicillin; Z91.013 Allergy to seafood; Z91.040 Latex allergy status
CPT/HCPCS: 36415; 93005; 80053; 85025; 99284; 96374; 96376; J2060

== ENCOUNTER 2022-09-27 14:46 | Emergency (ER) | payer MEDICARE, OTHER ==
[2022-09-27 14:53] VITALS: TEMP 97.4
[2022-09-27] MEDS ORDERED: SODIUM CHLORIDE 0.9% 1,000 ML IV STA (15:24)
[2022-09-27] MEDS ORDERED: ONDANSETRON 4 MG/2 ML VIAL IVP STA (15:24)
[2022-09-27] MEDS ORDERED: diazePAM 2 MG TAB PO STA (15:32)
[2022-09-27 15:51] LABS: Basophils % (A) 0 %; Eosinophils # (A) 0.4 k/uL (0-0.7); Eosinophils % (A) 7 %; HCT 43.1 % (34.0-46.0); Lymphocytes # (A) 1.8 k/uL (1.0-4.8); Lymphocytes % (A) 37 %; MCH 30.6 pg (25.0-35.0); MCHC 32.6 g/dL (31.0-37.0); Mean Platelet Volume 8.6; Monocytes # (A) 0.2 k/uL (0-1.0); Monocytes % (A) 5 %; Neutrophils # (A) 2.4 k/uL (1.3-7.7); Neutrophils % (A) 49 %; Platelet Count 179 k/uL (150-450); RBC 4.59 m/uL (3.80-5.40); RDW 12.7 % (11.5-15.5); WBC 4.9 k/uL (3.8-10.6)
--- NOTE | 2022-09-27 15:56 | XR ---
EXAMINATION TYPE: XR chest 2V DATE OF EXAM: 09/27/2022 3:52 PM COMPARISON: Chest radiographs from 04/09/2021, CTA chest 04/09/2021 TECHNIQUE: XR chest 2V Frontal and lateral views of the chest. CLINICAL INDICATION:Female, 52 years old with history of difficulty breathing; FINDINGS: Lungs/Pleura: There is no evidence of pleural effusion, focal consolidation, or pneumothorax. Pulmonary vascularity: Unremarkable. Heart/mediastinum: Cardiomediastinal silhouette is unremarkable. Musculoskeletal: No acute osseous pathology. IMPRESSION: No acute cardiopulmonary disease/process.
[2022-09-27 16:10] LABS: ALT 13 U/L (4-34); AST 21 U/L (14-36); African American GFR (CKD) >90 (>60 ml/min/1.73 sqM); Alkaline Phosphatase 49 U/L (38-126); Anion Gap 5 mmol/L; Blood Urea Nitrogen 20 mg/dL (7-17); Calcium 9.1 mg/dL (8.4-10.2); Carbon Dioxide 25 mmol/L (22-30); Chloride 111 mmol/L (98-107); Glucose 95 mg/dL (74-99); Magnesium 1.8 mg/dL (1.6-2.3); Non-African American GFR(CKD) 90 (>60 ml/min/1.73 sqM); Potassium 4.1 mmol/L (3.5-5.1); Sodium 141 mmol/L (137-145); Total Bilirubin 0.4 mg/dL (0.2-1.3); Total Protein 6.6 g/dL (6.3-8.2)
[2022-09-27 16:17] LABS: INR 0.9 (<1.2); Partial Thromboplastin Time 24.2 sec (22.0-30.0)
[2022-09-27] MEDS ORDERED: DOXYCYCLINE 100 MG CAP PO STA (16:51)
[2022-09-27] MEDS ORDERED: predniSONE 50 MG TAB PO STA (16:51)
--- NOTE | 2022-09-27 16:51 | ED ---
General Adult HPI - General Chief complaint: Shortness of Breath Stated complaint: Shortness of breath Time Seen by Provider: 09/27/22 14:54 Source: patient, RN notes reviewed, old records reviewed Mode of arrival: ambulatory Limitations: no limitations - History of Present Illness Initial comments: Patient is a 52-year-old female who presents emergency Department complaining of fibromyalgia, tobacco use, seasonal ALLERGIES, family history of blood clotting disease who presents emergency Department complaining of cough, congestion, as well as shortness breath is been on and off for the last month. Has received multiple treatments, last occurring approximately 10 days ago. States she initially improved but continues to have symptoms. Denies any fevers, sick contacts. Endorses occasional mild nausea, vomiting, diarrhea. Denies any abdominal pain. Denies any chest pain. Os is mild shortness of breath, mostly associated with the coughing and congestion. Denies any urinary complaints. Has no other acute complaints at this time. Presents for evaluation over concern for the upper respiratory symptoms. No history of COPD but does have a [id number] smoking history. - Related Data Home Medications Medication Instructions Recorded Confirmed Pregabalin [Lyrica] 150 mg PO TID 07/25/15 04/09/21 Ergocalciferol (Vitamin D2) 50,000 unit PO WE 09/06/18 04/09/21 [Drisdol (50,000 Iu)] DULoxetine HCL [Cymbalta] 60 mg PO BID 10/21/18 04/09/21 Acetaminophen Tab [Tylenol] 500 mg PO Q6H PRN 10/31/19 04/09/21 Fluticasone Nasal [place] [Flonase 2 spr EA NOSTRIL DAILY 10/31/19 04/09/21 Nasal [place]] HYDROcodone/APAP 10-325MG [[place] 1 tab PO QID PRN 10/31/19 04/09/21 10-325] Naloxegol Oxalate [Movantik] 25 mg PO DAILY 10/31/19 04/09/21 Albuterol Nebulized [Ventolin 2.5 mg INHALATION RT-QID PRN 04/09/21 04/09/21 Nebulized] Amitriptyline HCl [Elavil] 150 mg PO HS 04/09/21 04/09/21 Daily-Vivi 1 tab PO DAILY 04/09/21 04/09/21 EPINEPHrine (Auto Inject) [Epipen] 0.3 mg IM ONCE PRN 04/09/21 04/09/21 Fluticasone Propionate [Flovent 1 puff INHALATION RT-BID 04/09/21 04/09/21 Hfa 110 mcg] Lisdexamfetamine Dimesylate 70 mg PO DAILY 04/09/21 04/09/21 [Vyvanse] Melatonin 15 mg PO HS PRN 04/09/21 04/09/21 Naproxen [Naprosyn] 250 mg PO BID-W/MEALS 04/09/21 04/09/21 Nicotine 21Mg/24Hr Patch [Habitrol] 1 patch TRANSDERM DAILY PRN 04/09/21 04/09/21 Sertraline HCl [Zoloft] 25 mg PO HS 04/09/21 04/09/21 Zinc 50 mg PO DAILY 04/09/21 04/09/21 buprenorphine HCL [Belbuca] 450 mcg BUCCAL BID 04/09/21 04/09/21 guaiFENesin [Mucinex] 600 mg PO BID 04/09/21 04/09/21 predniSONE 1 dose PO DIRECTED 04/09/21 04/09/21 Previous Rx's Medication Instructions Recorded Omeprazole 40 mg PO DAILY #60 capsule. 10/27/18 Sucralfate [Carafate] 1 gm PO BID #60 tab 10/27/18 Albuterol Inhaler [Ventolin Hfa 1 puff INHALATION RT-TID PRN #8 gm 03/30/21 Inhaler] DULoxetine HCL [Cymbalta] 60 mg PO BID #40 cap 06/24/22 Albuterol Inhaler [Ventolin Hfa 1 puff INHALATION TID #8 gm 09/27/22 Inhaler] Doxycycline Hyclate 100 mg PO BID 7 Days #14 cap 09/27/22 predniSONE [Deltasone] 40 mg PO DAILY 5 Days #10 tab 09/27/22 Allergies Allergy/AdvReac Type Severity Reaction Status Date / Time Penicillins Allergy Rash/Hives Verified 09/27/22 14:53 shellfish derived [Shellfish] Allergy Anaphylaxis Verified 09/27/22 14:53 latex AdvReac Rash/Hives Verified 09/27/22 14:53 Review of Systems ROS Statement: Those systems with pertinent positive or pertinent negative responses have been documented in the HPI. Review of Systems: CONST: Denies fever EYES: Denies blurry vision ENT: Endorses nasal congestion C/V: Denies Chest pain RESP: Shortness of breath, cough GI: Denies abdominal pain : Denies dysuria SKIN: Denies rash. MSK: Denies joint pain. NEURO: Denies headache ROS Other: All systems not noted in ROS Statement are negative. Past Medical History Past Medical History: Blood Disorder, Cancer, Fibromyalgia, Hyperlipidemia, Hypertension, Liver Disease, Sleep Apnea/CPAP/BIPAP Additional Past Medical History / Comment(s): seasonal allergies, pt states clotting disorder, cervical ca - HPV, slight elevated LFT, chronic pain, chronic fatigue, BLE edema, FX RT ANKLE 10/31/19-HAS SPLINT ON ANKLE History of Any Multi-Drug Resistant Organisms: None Reported Past Surgical History: Bariatric Surgery, Tubal Ligation Additional Past Surgical History / Comment(s): bunionectomy left, gastric sleeve performed October 2018 (Dr. Lindsey) Past Anesthesia/Blood Transfusion Reactions: No Reported Reaction Past Psychological History: Depression Smoking Status: Vaper Past Alcohol Use History: None Reported Past Drug Use History: None Reported - Past Family History Son(s) Family Medical History: Blood Disorder, Deep Vein Thrombosis (DVT) Additional Family Medical History / Comment(s): elevated clotting disorder Daughter(s) Family Medical History: Blood Disorder Additional Family Medical History / Comment(s): elevated clotting disorder Mother Family Medical History: Hypertension Additional Family Medical History / Comment(s): at 64 - "arterial htn" General Exam - General Exam Comments Initial Comments: General: Appears in no acute distress. HEAD: Normal with no signs of head trauma. EYES: EOMI. ENT: Hearing grossly intact, normal oropharynx. Nasal congestion. RESPIRATORY: Clear breath sounds bilaterally. No wheezes, rales, or rhonchi. No hypoxia. No respiratory distress. C/V: Mild tachycardia with regular rhythm. S1 and S2 auscultated. No peripheral edema. Peripheral pulses 2+ and intact throughout. ABD: Abd is soft, nontender, nondistended EXT: Normal range of motion, no obvious deformity SKIN: No rashes or lesions observed on exposed skin. NEURO: Alert and oriented 4. Limitations: no limitations Course Vital Signs 09/27/22 09/27/22 14:50 16:52 Temperature 97.4 F L Pulse Rate 112 H 98 Respiratory 22 18 Rate Blood Pressure 134/92 120/80 O2 Sat by Pulse 98 99 Oximetry Medical Decision Making - Medical Decision Making Was pt. sent in by a medical professional or institution ([facility], CH[employer], urgent care, hospital, or fpc...) When possible be specific @ -No Did you speak to anyone other than the patient for history (EMS, parent, family, police, friend...)? What history was obtained from this source @ -No Did you review nursing and triage notes (agree or disagree)? Why? @ -I reviewed and agree with nursing and triage notes Were old charts reviewed (outside hosp., previous admission, EMS record, old EKG, old radiological studies, urgent care reports/EKG's, fpc records)? Report findings @ -No old charts were reviewed Differential Diagnosis (chest pain, altered mental status, abdominal pain women, abdominal pain men, vaginal bleeding, weakness, fever, dyspnea, syncope, he adache, dizziness, GI bleed, back pain, seizure, CVA, palpatations, mental health, musculoskeletal)? @ -Differential Dyspnea: Coronary syndrome, arrhythmia, tamponade, asthma, COPD, pulmonary embolism, pneumonia, pneumothorax, pulmonary effusion, anaphylaxis, diabetic ketoacidosis, flailed chest, pulmonary contusion, diaphragmatic rupture, anemia, neuromuscular, this is not meant to be an all-inclusive list. EKG interpreted by me (3pts min.). @ -As above X-rays interpreted by me (1pt min.). @ -Chest x-ray reveals no obvious acute cardio pulmonary process, infiltrate CT interpreted by me (1pt min.). @ -None done U/S interpreted by me (1pt. min.). @ -None done What testing was considered but not performed or refused? (CT, X-rays, U/S, labs)? Why? @ -None What meds were considered but not given or refused? Why? @ -None Did you discuss the management of the patient with other professionals (professionals i.e. [facility], CHIP LOFT WORKER, lab, RT, psych nurse, perinatal social worker, electrotype servicer, teacher, affirmative action officer, case resolution specialist)? Give summary @ -No Was smoking cessation discussed for >3mins.? @ -No Was critical care preformed (if so, how long)? @ -No Were there social determinants of health that impacted care today? How? (Home lessness, low income, unemployed, alcoholism, drug addiction, transportation, low edu. Level, literacy, decrease access to med. care, longterm, rehab)? @ -No Was there de-escalation of care discussed even if they declined (Discuss DNR or withdrawal of care, Hospice)? DNR status @ -No What co-morbidities impacted this encounter? (DM, HTN, Smoking, COPD, CAD, Cancer, CVA, ARF, Chemo, Hep., AIDS, mental health diagnosis, sleep apnea, morbid obesity)? @ -[id number] tobacco use history. Was patient admitted / discharged? Hospital course, mention meds given and route, prescriptions, significant lab abnormalities, going to OR and other pertinent info. @ -Based on the patient's presentation and physical exam, I'm concerned for likely infectious etiology for her current symptoms but cannot rule out other cardiopulmonary, etiology at this time. We will obtain labs, viral swabs, chest x-ray. She'll be given a 1 L fluid bolus while waiting for results. She was in agreement this plan. Vital signs within except for limits. No respiratory distress. No hypoxia. EKG showed no signs of acute ischemia. Chest x-ray shows no obvious acute cardiopulmonary process. Laboratory studies are remarkable for d-dimer within normal limits for patient's age. Troponin is undetectable. BNP is within acceptable limits. Covid, flu, RSV negative. Remainder the patient's labs are within acceptable limits. On reevaluation, patient remains in no respiratory distress. He did discuss her workup. I do believe it is safer to be discharged home. She was in agreement this plan. Likely experiencing persistent bronchitis. We will treat with doxycycline, as well as steroids and I will provide her with an albuterol inhaler. She was in agreement this plan. Strict return precautions were discussed. She received a dose of steroids as well as doxycycline prior to discharge. I will provide the patient with a prescription for prednisone, doxycycline, alb uterol inhaler. I instructed the patient to follow up with their PCP in the next 1-3 days . I explained that the patient should return to the emergency department if they experience any worsening symptoms. Strict return precautions were discussed with the patient. The patient expressed understanding of these instructions. I answered all questions that the patient had. The patient was discharged home in good condition with their prescriptions and follow up information. Undiagnosed new problem with uncertain prognosis? @ -No Drug Therapy requiring intensive monitoring for toxicity (Heparin, Nitro, Insulin, Cardizem)? @ -No Were any procedures done? @ -No Diagnosis/symptom? @ -Bronchitis Acute, or Chronic, or Acute on Chronic? @ -Acute Uncomplicated (without systemic symptoms) or Complicated (systemic symptoms)? @ -Uncomplicated Side effects of treatment? @ -No Exacerbation, Progression, or Severe Exacerbation? @ -No Poses a threat to life or bodily function? How? (Chest pain, [place], CA, pneumonia, PE, COPD, DKA, ARF, appy, cholecystitis, CVA, Diverticulitis, Homicidal, Suicidal, threat to staff... and all critical care pts) @ -No - Lab Data Result diagrams: 09/27/22 15:23 09/27/22 15: Lab Results 09/27/22 09/27/22 09/27/22 Range/Units 15:23 15:23 15:23 WBC 4.9 (3.8-10.6) k/uL RBC 4.59 (3.80-5.40) m/uL Hgb 14.0 (11.4-16.0) gm/dL Hct 43.1 (34.0-46.0) % MCV 94.0 (80.0-100.0) fL MCH 30.6 (25.0-35.0) pg MCHC 32.6 (31.0-37.0) g/dL RDW 12.7 (11.5-15.5) % Plt Count 179 (150-450) k/uL MPV 8.6 Neutrophils % 49 % Lymphocytes % 37 % Monocytes % 5 % Eosinophils % 7 % Basophils % 0 % Neutrophils # 2.4 (1.3-7.7) k/uL Lymphocytes # 1.8 (1.0-4.8) k/uL Monocytes # 0.2 (0-1.0) k/uL Eosinophils # 0.4 (0-0.7) k/uL Basophils # 0.0 (0-0.2) k/uL PT 10.0 (9.0-12.0) sec INR 0.9 (<1.2) APTT 24.2 (22.0-30.0) sec D-Dimer 0.56 (<0.60) mg/L FEU Sodium 141 (137-145) mmol/L Potassium 4.1 (3.5-5.1) mmol/L Chloride 111 H (98-107) mmol/L Carbon Dioxide 25 (22-30) mmol/L Anion Gap 5 mmol/L BUN 20 H (7-17) mg/dL Creatinine 0.77 (0.52-1.04) mg/dL Est GFR (CKD-EPI)AfAm >90 (>60 ml/min/1.73 sqM) Est GFR (CKD-EPI)NonAf 90 (>60 ml/min/1.73 sqM) Glucose 95 (74-99) mg/dL Calcium 9.1 (8.4-10.2) mg/dL Magnesium 1.8 (1.6-2.3) mg/dL Total Bilirubin 0.4 (0.2-1.3) mg/dL AST 21 (14-36) U/L ALT 13 (4-34) U/L Alkaline Phosphatase 49 (38-126) U/L Troponin I (0.000-0.034) ng/mL NT-Pro-B Natriuret Pep pg/mL Total Protein 6.6 (6.3-8.2) g/dL Albumin 4.0 (3.5-5.0) g/dL Influenza Type A (PCR) (Not Detectd) Influenza Type B (PCR) (Not Detectd) RSV (PCR) (Not Detectd) SARS-CoV-2 (PCR) (Not Detectd) 09/27/22 09/27/22 09/27/22 Range/Units 15:23 15: 15:29 WBC (3.8-10.6) k/uL RBC (3.80-5.40) m/uL Hgb (11.4-16.0) gm/dL Hct (34.0-46.0) % MCV (80.0-100.0) fL MCH (25.0-35.0) pg MCHC (31.0-37.0) g/dL RDW (11.5-15.5) % Plt Count (150-450) k/uL MPV Neutrophils % % Lymphocytes % % Monocytes % % Eosinophils % % Basophils % % Neutrophils # (1.3-7.7) k/uL Lymphocytes # (1.0-4.8) k/uL Monocytes # (0-1.0) k/uL Eosinophils # (0-0.7) k/uL Basophils # (0-0.2) k/uL PT (9.0-12.0) sec INR (<1.2) APTT (22.0-30.0) sec D-Dimer (<0.60) mg/L FEU Sodium (137-145) mmol/L Potassium (3.5-5.1) mmol/L Chloride (98-107) mmol/L Carbon Dioxide (22-30) mmol/L Anion Gap mmol/L BUN (7-17) mg/dL Creatinine (0.52-1.04) mg/dL Est GFR (CKD-EPI)AfAm (>60 ml/min/1.73 sqM) Est GFR (CKD-EPI)NonAf (>60 ml/min/1.73 sqM) Glucose (74-99) mg/dL Calcium (8.4-10.2) mg/dL Magnesium (1.6-2.3) mg/dL Total Bilirubin (0.2-1.3) mg/dL AST (14-36) U/L ALT (4-34) U/L Alkaline Phosphatase (38-126) U/L Troponin I <0.012 (0.000-0.034) ng/mL NT-Pro-B Natriuret Pep 135 pg/mL Total Protein (6.3-8.2) g/dL Albumin (3.5-5.0) g/dL Influenza Type A (PCR) Not Detected (Not Detectd) Influenza Type B (PCR) Not Detected (Not Detectd) RSV (PCR) Not Detected (Not Detectd) SARS-CoV-2 (PCR) Not Detected (Not Detectd) - EKG Data -: EKG Interpreted by Me EKG Comments: 12-lead Electrocardiogram Interpretation Note EKG was reviewed and interpreted by myself. 12-lead ECG performed at 1523 is interpreted by me as revealing normal sinus rhythm at a rate of 69 beats per minute. [place] is normal. ID interval is 121 ms, QRS duration is 95 ms, QTc is 406 ms.. There were no ST or T wave abnormalities to suggest myocardial ischemia or injury. R wave progression across the precordium was satisfactory. By my interpretation this EKG is non-diagnostic for acute ischemia. Disposition Clinical Impression: Bronchitis Disposition: HOME SELF-CARE Condition: Good Instructions (If sedation given, give patient instructions): Acute Bronchitis (ED) Prescriptions: predniSONE [Deltasone] 40 mg PO DAILY 5 Days #10 tab Doxycycline Hyclate 100 mg PO BID 7 Days #14 cap Albuterol Inhaler [Ventolin Hfa Inhaler] 1 puff INHALATION TID #8 gm Is patient prescribed a controlled substance at d/c from ED?: No Referrals: Camilo Foy DO [Primary Care Provider] - 1-2 days Time of Disposition: 16:40
[2022-09-27 16:52] VITALS: BP 120/80; PULSE 98; RESP 18
== END 2022-09-27 17:04 | disposition home or self-care (01) ==
LOC: EC 14:46
DX: J40 Bronchitis, not specified as acute or chronic (principal); I10 Essential (primary) hypertension; F32.A Depression, unspecified; F17.290 Nicotine dependence, other tobacco product, uncomplicated; Z88.0 Allergy status to penicillin; Z91.013 Allergy to seafood; Z91.040 Latex allergy status; Z79.51 Long term (current) use of inhaled steroids; Z79.899 Other long term (current) drug therapy; Z20.822 Contact with and (suspected) exposure to COVID-19
CPT/HCPCS: 36415; 93005; 85379; 83880; 80053; 83735; 84484; 85025; 85610; 85730; 87636; 71046; 99285; 96374; 96361; J2405; J7512

== ENCOUNTER → 2024-05-19 | Outpatient (CLI) | payer MEDICARE, OTHER ==
--- NOTE | 2024-05-19 17:37 | XR ---
EXAMINATION TYPE: XR femur LT, XR Hip Complete LT DATE OF EXAM: 05/19/2024 3:59 PM COMPARISON: None CLINICAL INDICATION: Female, 53 years old with history of PAIN IN LEFT HIM M25.552; PHH, pain TECHNIQUE: XR femur LT, XR Hip Complete LT examined in Frontal and lateral projections. 2 views of the left hip. FINDINGS: No evidence of acute osseous pathology, joint dislocation, or soft tissue swelling . Mild osteophyte formation of the superior acetabulum and tibial plateau and patella. Mild joint space narr owing present. No soft tissue mass identified. IMPRESSION: 1. No acute osseous pathology. 2. 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 [facility], , 05/19/2024 5:35 PM
== END | disposition home or self-care (01) ==
LOC: RADXRMAIN 15:39
PROVIDERS: ATTEND Family Medicine
DX: M17.12 Unilateral primary osteoarthritis, left knee (principal); M16.12 Unilateral primary osteoarthritis, left hip
CPT/HCPCS: 73502

== ENCOUNTER 2024-07-11 16:12 | Emergency (ER) | payer MEDICARE, OTHER ==
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
[2024-07-11] MEDS: ACETAMINOPHEN TAB 500 MG TAB PO STA (16:53)
[2024-07-11] MEDS: IBUPROFEN 600 MG TAB PO STA (16:55)
--- NOTE | 2024-07-11 17:52 | XR ---
EXAMINATION TYPE: XR hand complete RT DATE OF EXAM: 07/11/2024 5:12 PM COMPARISON: None. CLINICAL INDICATION: Female, 54 years old with history of pain, pain TECHNIQUE: 3 view(s) obtained. FINDINGS: There is dislocation of the middle phalanx on the proximal phalanx fifth digit. No acute fractures are evident. Joint spaces are otherwise preserved. Some soft tissue swelling is ov er the metacarpal phalangeal joint space IMPRESSION: 1. Dislocation of the middle phalanx on the proximal phalanx fifth digit. [facility], Workstation: [facility], 07/11/2024 5:50 PM
[2024-07-11 18:00] VITALS: BP 156/105; PULSE 68; RESP 19; TEMP 98.7
--- NOTE | 2024-07-11 18:21 | XR ---
EXAMINATION TYPE: XR finger RT DATE OF EXAM: 07/11/2024 6:18 PM COMPARISON: None. CLINICAL INDICATION: Female, 54 years old with history of reduction, pain TECHNIQUE: view(s) obtained. FINDINGS: 2 there is normal alignment and positioning of the fifth digit. Joint spaces are preserved. Previous dislocation has been reduced. No subsequent fractures evident. There is some soft tissue swelling ove r the proximal interphalangeal joint space. IMPRESSION: 1. No acute fracture post reduction. 2. Mild soft tissue swelling proximal interphalangeal joint space fifth digit [facility], Workstation: [facility], 07/11/2024 6:19 PM
== END 2024-07-11 18:31 | disposition home or self-care (01) ==
LOC: EC 16:12
DX: S63.256A Unspecified dislocation of right little finger, initial encounter (principal); F17.290 Nicotine dependence, other tobacco product, uncomplicated; Z88.0 Allergy status to penicillin; Z88.8 Allergy status to other drugs, medicaments and biological substances; W22.01XA Walked into wall, initial encounter
CPT/HCPCS: 26770; 99283

== ENCOUNTER 2024-08-08 16:01 | Emergency (ER) | payer MEDICARE, OTHER ==
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
[2024-08-08] MEDS: ACETAMINOPHEN TAB 500 MG TAB PO STA (18:09)
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
[2024-08-08] MEDS: KETOROLAC 15 MG/ML 1 ML VIAL IM STA (19:57)
[2024-08-08 20:36] VITALS: BP 169/88; PULSE 64; RESP 19; TEMP 97.8
== END 2024-08-08 20:36 | disposition home or self-care (01) ==
LOC: EC 16:01
DX: S09.90XA Unspecified injury of head, initial encounter (principal); F17.290 Nicotine dependence, other tobacco product, uncomplicated; Z88.0 Allergy status to penicillin; Z91.013 Allergy to seafood; Z91.040 Latex allergy status; Z88.8 Allergy status to other drugs, medicaments and biological substances; Y04.8XXA Assault by other bodily force, initial encounter
CPT/HCPCS: 72125; 70486; 70450; 99284; 96372; J1885

== ENCOUNTER 2024-08-11 16:03 | Emergency (ER) | payer MEDICARE, OTHER ==
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
--- NOTE | 2024-08-11 17:28 | XR ---
EXAMINATION TYPE: XR chest 2V DATE OF EXAM: 08/11/2024 5:14 PM COMPARISON: Chest radiographs from 09/27/2022 TECHNIQUE: XR chest 2V Frontal and lateral views of the chest. CLINICAL INDICATION:Female, 54 years old with history of chest pain; FINDINGS: Lungs/Pleura: There is no evidence of pleural effusion, focal consolidation, or pneumothorax. Pulmonary vascularity: Unremarkable. Heart/mediastinum: Cardiomediastinal silhouette is unremarkable. Musculoskeletal: No acute osseous pathology. Mild multilevel degenerative disc disease of the thoraci c spine. IMPRESSION: No acute cardiopulmonary disease/process. [facility], , 08/11/2024 5:26 PM
[2024-08-11 18:10] LABS: Basophils % (A) 0 %; Eosinophils # (A) 0.1 k/uL (0-0.7); Eosinophils % (A) 1 %; HGB 12.4 gm/dL (11.4-16.0); Lymphocytes # (A) 1.9 k/uL (1.0-4.8); Lymphocytes % (A) 27 %; MCH 29.4 pg (25.0-35.0); MCHC 31.1 g/dL (31.0-37.0); MCV 94.4 fL (80.0-100.0); Mean Platelet Volume 8.1; Monocytes # (A) 0.4 k/uL (0-1.0); Monocytes % (A) 5 %; Neutrophils # (A) 4.8 k/uL (1.3-7.7); Neutrophils % (A) 66 %; Platelet Count 216 k/uL (150-450); RBC 4.24 m/uL (3.80-5.40); RDW 12.6 % (11.5-15.5); WBC 7.3 k/uL (3.8-10.6)
[2024-08-11 18:23] LABS: Carbon Dioxide 29 mmol/L (22-30); Chloride 106 mmol/L (98-107); Glucose 94 mg/dL (74-99); Potassium 3.8 mmol/L (3.5-5.1); Sodium 141 mmol/L (137-145)
[2024-08-11 18:24] LABS: ALT 12 U/L (4-34); AST 18 U/L (14-36); African American GFR (CKD) >90 (>60 ml/min/1.73 sqM); Albumin 4.2 g/dL (3.5-5.0); Alkaline Phosphatase 49 U/L (38-126); Anion Gap 6 mmol/L; Blood Urea Nitrogen 18 mg/dL (7-17); Calcium 9.5 mg/dL (8.4-10.2); Non-African American GFR(CKD) >90 (>60 ml/min/1.73 sqM); Total Bilirubin 0.3 mg/dL (0.2-1.3); Total Protein 6.8 g/dL (6.3-8.2)
[2024-08-11] MEDS: MORPHINE SULFATE 4 MG/ML SYRINGE IV STA (18:29)
--- NOTE | 2024-08-11 19:10 | CT ---
EXAMINATION TYPE: CT angio chest DATE OF EXAM: 08/11/2024 6:52 PM COMPARISON: Chest radiograph from same day. Multiple CTs of the chest with most recent on 10/31/2019 . CLINICAL INDICATION: Female, 54 years old with history of positive D-dimer; Elevated D-dimer. TECHNIQUE/CONTRAST: CTA scan of the thorax is performed with IV Contrast, patient injected with 100ml mL of Isovue 370, M IP images are created and reviewed these are created on a separate workstation.. CT DLP: 247.4 mGycm, Automated exposure control for dose reduction was used. FINDINGS: Lungs/Pleura: No evidence of focal consolidation, pleural effusion or pneumothorax. Airway: Large airways are patent. Heart: Size within normal limits fluid in the pericardial recesses noted. Vasculature: There is no evidence for a filling defect within the pulmonary vasculature to suggest ac [place] pulmonary embolism. The pulmonary artery is of normal size. Mediastinum: No gross evidence of adenopathy. Musculoskeletal: No acute osseous abnormalities Soft Tissues/lymph nodes: Unremarkable. Lower neck: No significant findings. Upper Abdomen: Probable hepatic cysts. The gallbladder is surgically absent. Postsurgical changes sto mach. Obstructing 4 mm left renal calculus. IMPRESSION: 1. No evidence of pulmonary embolism. 2. No evidence for acute process. [facility], , 08/11/2024 7:08 PM
[2024-08-11 20:14] VITALS: BP 159/98; PULSE 62; RESP 18; TEMP 98.2
== END 2024-08-11 20:14 | disposition home or self-care (01) ==
LOC: EC 16:03
DX: R09.1 Pleurisy (principal); F17.290 Nicotine dependence, other tobacco product, uncomplicated; Z88.0 Allergy status to penicillin; Z91.013 Allergy to seafood; Z91.040 Latex allergy status; Z88.8 Allergy status to other drugs, medicaments and biological substances
CPT/HCPCS: 36415; 93005; 85379; 80053; 84484; 85025; 71046; 71275; 99285; 96374; J2270; Q9967